=== PATIENT | female | born 1970 | race Caucasian/White ===

== ENCOUNTER 2019-07-17 09:50 | Outpatient (RCR) | payer BC, SELFPAY ==
[2019-05-11 17:52] LABS: Hematocrit 26.1 % (35.0-49.0); Hemoglobin 8.4 g/dL (12.0-15.0); Mean Corpuscular HGB Conc 32.2 g/dL (32.0-36.0); Mean Corpuscular Hemoglobin 36.7 pg (27.0-31.0); Mean Platelet Volume 9.5 fl (9.2-11.8); Platelet Count Result 108 K/mm3 (150-420); Red Blood Count 2.29 M/mm3 (4.20-5.40); Red Cell Distribution Width 15.9 % (11.6-14.4); White Blood Count 8.3 K/mm3 (4.8-10.8)
[2019-05-11 19:17] LABS: Band Neutrophils Percent 6 % (0-6); Lymphocytes Absolute Manual 2.24 K/mm3 (1.1-4.5); Lymphocytes Percent Manual 27 % (18-44); Monocytes Absolute Manual 0.74 K/mm3 (0.1-0.90); Monocytes Percent Manual 9 % (3-9); Neutrophils Absolute Manual 5.06 K/mm3 (1.7-7.2); Neutrophils Percent Manual 55 % (46-73)
[2019-05-11 19:18] LABS: Eosinophils Absolute Manual 0.08 K/mm3 (0.02-0.5); Eosinophils Percent Manual 1 % (1-6); Metamyelocytes Percent 2 %
[2019-05-11 19:26] LABS: Platelet Estimate Adequate (Adequate)
[2019-05-15 10:29] LABS: Basophils Absolute Auto 0.05 K/mm3 (0.00-0.10); Basophils Percent Auto 1.2 % (0.0-1.0); Eosinophils Absolute Auto 0.09 K/mm3 (0.02-0.50); Eosinophils Percent Auto 2.2 % (1.0-6.0); Hematocrit 26.8 % (35.0-49.0); Hemoglobin 8.8 g/dL (12.0-15.0); Immature Granulocyte Percent A 2.4 % (0.0-0.0); Lymphocytes Absolute Auto 2.05 K/mm3 (1.10-4.50); Lymphocytes Percent Auto 49.4 % (18.0-42.0); Mean Corpuscular HGB Conc 32.8 g/dL (32.0-36.0); Mean Corpuscular Volume 112.6 fL (78.0-102.0); Mean Platelet Volume 9.4 fl (9.2-11.8); Monocytes Absolute Auto 0.61 K/mm3 (0.10-0.90); Monocytes Percent Auto 14.7 % (2.0-11.0); Neutrophils Absolute Auto 1.3 K/mm3 (1.7-7.2); Neutrophils Percent Auto 30.1 % (50.0-70.0); Platelet Count Result 127 K/mm3 (150-420); Red Blood Count 2.38 M/mm3 (4.20-5.40); Red Cell Distribution Width 15.9 % (11.6-14.4); White Blood Count 4.2 K/mm3 (4.8-10.8)
[2019-06-02 10:21] LABS: Hematocrit 28.9 % (35.0-49.0); Hemoglobin 9.5 g/dL (12.0-15.0); Mean Corpuscular HGB Conc 32.9 g/dL (32.0-36.0); Mean Corpuscular Hemoglobin 36.8 pg (27.0-31.0); Mean Platelet Volume 8.9 fl (9.2-11.8); Platelet Count Result 200 K/mm3 (150-420); Red Blood Count 2.58 M/mm3 (4.20-5.40); Red Cell Distribution Width 14.6 % (11.6-14.4)
[2019-06-02 11:00] LABS: White Blood Count 25.9 K/mm3 (4.8-10.8)
[2019-06-02 11:19] LABS: Band Neutrophils Percent 5 % (0-6); Lymphocytes Absolute Manual 2.33 K/mm3 (1.1-4.5); Lymphocytes Percent Manual 9 % (18-44); Monocytes Absolute Manual 0.77 K/mm3 (0.1-0.90); Monocytes Percent Manual 3 % (3-9); Neutrophils Absolute Manual 22.79 K/mm3 (1.7-7.2); Neutrophils Percent Manual 83 % (46-73); Total Cells Counted 100
[2019-06-02 11:20] LABS: Basophils Percent Manual 0 % (0-1); Eosinophils Percent Manual 0 % (1-6); Platelet Estimate Adequate (Adequate)
[2019-06-13 09:17] LABS: Basophils Absolute Auto 0.13 K/mm3 (0.00-0.10); Basophils Percent Auto 2.3 % (0.0-1.0); Eosinophils Absolute Auto 0.21 K/mm3 (0.02-0.50); Eosinophils Percent Auto 3.8 % (1.0-6.0); Hematocrit 29.9 % (35.0-49.0); Hemoglobin 9.6 g/dL (12.0-15.0); Immature Granulocyte Absolute 0.01 K/mm3 (0.00-0.00); Immature Granulocyte Percent A 0.2 % (0.0-0.0); Lymphocytes Absolute Auto 1.22 K/mm3 (1.10-4.50); Lymphocytes Percent Auto 21.8 % (18.0-42.0); Mean Corpuscular HGB Conc 32.1 g/dL (32.0-36.0); Mean Platelet Volume 9.5 fl (9.2-11.8); Monocytes Absolute Auto 0.51 K/mm3 (0.10-0.90); Monocytes Percent Auto 9.1 % (2.0-11.0); Neutrophils Absolute Auto 3.5 K/mm3 (1.7-7.2); Neutrophils Percent Auto 62.8 % (50.0-70.0); Platelet Count Result 336 K/mm3 (150-420); Red Blood Count 2.67 M/mm3 (4.20-5.40); Red Cell Distribution Width 13.5 % (11.6-14.4); White Blood Count 5.6 K/mm3 (4.8-10.8)
[2019-06-19 08:51] LABS: Basophils Absolute Auto 0.05 K/mm3 (0.00-0.10); Basophils Percent Auto 0.3 % (0.0-1.0); Eosinophils Absolute Auto 0.23 K/mm3 (0.02-0.50); Eosinophils Percent Auto 1.5 % (1.0-6.0); Hematocrit 30.6 % (35.0-49.0); Hemoglobin 9.7 g/dL (12.0-15.0); Immature Granulocyte Absolute 0.17 K/mm3 (0.00-0.00); Immature Granulocyte Percent A 1.1 % (0.0-0.0); Lymphocytes Absolute Auto 1.28 K/mm3 (1.10-4.50); Lymphocytes Percent Auto 8.6 % (18.0-42.0); Mean Corpuscular HGB Conc 31.7 g/dL (32.0-36.0); Mean Corpuscular Volume 110.5 fL (78.0-102.0); Monocytes Absolute Auto 0.56 K/mm3 (0.10-0.90); Monocytes Percent Auto 3.8 % (2.0-11.0); Neutrophils Absolute Auto 12.6 K/mm3 (1.7-7.2); Neutrophils Percent Auto 84.7 % (50.0-70.0); Platelet Count Result 197 K/mm3 (150-420); Red Blood Count 2.77 M/mm3 (4.20-5.40); Red Cell Distribution Width 13.2 % (11.6-14.4); White Blood Count 14.9 K/mm3 (4.8-10.8)
[2019-07-03 09:46] LABS: Basophils Absolute Auto 0.05 K/mm3 (0.00-0.10); Basophils Percent Auto 0.6 % (0.0-1.0); Eosinophils Absolute Auto 0.11 K/mm3 (0.02-0.50); Eosinophils Percent Auto 1.4 % (1.0-6.0); Hematocrit 32.9 % (35.0-49.0); Hemoglobin 10.6 g/dL (12.0-15.0); Immature Granulocyte Absolute 0.06 K/mm3 (0.00-0.00); Immature Granulocyte Percent A 0.7 % (0.0-0.0); Lymphocytes Absolute Auto 1.09 K/mm3 (1.10-4.50); Lymphocytes Percent Auto 13.6 % (18.0-42.0); Mean Corpuscular HGB Conc 32.2 g/dL (32.0-36.0); Mean Corpuscular Hemoglobin 34.6 pg (27.0-31.0); Mean Corpuscular Volume 107.5 fL (78.0-102.0); Mean Platelet Volume 9.8 fl (9.2-11.8); Monocytes Absolute Auto 0.64 K/mm3 (0.10-0.90); Neutrophils Absolute Auto 6.1 K/mm3 (1.7-7.2); Neutrophils Percent Auto 75.7 % (50.0-70.0); Platelet Count Result 163 K/mm3 (150-420); Red Blood Count 3.06 M/mm3 (4.20-5.40); Red Cell Distribution Width 13.4 % (11.6-14.4)
[2019-07-10 11:46] LABS: Hematocrit 31.3 % (35.0-49.0); Hemoglobin 10.1 g/dL (12.0-15.0); Mean Corpuscular HGB Conc 32.3 g/dL (32.0-36.0); Mean Corpuscular Hemoglobin 34.2 pg (27.0-31.0); Mean Corpuscular Volume 106.1 fL (78.0-102.0); Mean Platelet Volume 9.5 fl (9.2-11.8); Platelet Count Result 177 K/mm3 (150-420); Red Blood Count 2.95 M/mm3 (4.20-5.40); Red Cell Distribution Width 13.8 % (11.6-14.4)
[2019-07-10 13:42] LABS: White Blood Count 22.1 K/mm3 (4.8-10.8)
[2019-07-10 13:43] LABS: Band Neutrophils Percent 0 % (0-6); Basophils Percent Manual 0 % (0-1); Eosinophils Absolute Manual 0.66 K/mm3 (0.02-0.5); Eosinophils Percent Manual 3 % (1-6); Lymphocytes Percent Manual 5 % (18-44); Metamyelocytes Percent 2 %; Monocytes Percent Manual 5 % (3-9); Neutrophils Absolute Manual 18.78 K/mm3 (1.7-7.2); Neutrophils Percent Manual 85 % (46-73); Total Cells Counted 100
[2019-07-10 13:44] LABS: Platelet Estimate Adequate (Adequate)
[2019-07-17 10:00] LABS: Basophils Absolute Auto 0.03 K/mm3 (0.00-0.10); Basophils Percent Auto 0.7 % (0.0-1.0); Eosinophils Absolute Auto 0.08 K/mm3 (0.02-0.50); Eosinophils Percent Auto 1.7 % (1.0-6.0); Hematocrit 32.2 % (35.0-49.0); Hemoglobin 10.4 g/dL (12.0-15.0); Immature Granulocyte Absolute 0.02 K/mm3 (0.00-0.00); Immature Granulocyte Percent A 0.4 % (0.0-0.0); Lymphocytes Absolute Auto 1.25 K/mm3 (1.10-4.50); Lymphocytes Percent Auto 27.3 % (18.0-42.0); Mean Corpuscular HGB Conc 32.3 g/dL (32.0-36.0); Mean Corpuscular Hemoglobin 33.7 pg (27.0-31.0); Mean Corpuscular Volume 104.2 fL (78.0-102.0); Mean Platelet Volume 9.3 fl (9.2-11.8); Monocytes Absolute Auto 0.67 K/mm3 (0.10-0.90); Monocytes Percent Auto 14.6 % (2.0-11.0); Neutrophils Absolute Auto 2.5 K/mm3 (1.7-7.2); Neutrophils Percent Auto 55.3 % (50.0-70.0); Platelet Count Result 184 K/mm3 (150-420); Red Blood Count 3.09 M/mm3 (4.20-5.40); Red Cell Distribution Width 13.2 % (11.6-14.4); White Blood Count 4.6 K/mm3 (4.8-10.8)
== END 2019-08-09 23:59 | disposition home or self-care (01) ==
LOC: CHSLAB 09:50
PROVIDERS: Visit Provider Internal Medicine Hematology & Oncology
DX: D70.9 Neutropenia, unspecified (principal)
CPT/HCPCS: 36415; 85025

== ENCOUNTER 2019-09-01 07:45 | Inpatient (IN) | payer BC, SELFPAY ==
[2019-09-01] VITALS (12 sets, daily range): BP systolic 105–149; BP diastolic 65–99; PULSE 72–99; RESP 18–20; TEMP 36–36.6; O2SAT 96–100; BMI 17.9
--- NOTE | ~2019-09-01 | US_ITS ---
EXAMINATION: US venous doppler [facility] DATE: 09/04/2019 10:07 INDICATION: Epigastric abdominal pain. TECHNIQUE: Grayscale ultrasound images without and with compression and Doppler ultrasound images of the bilateral lower extremity veins were obtained. COMPARISON: None. FINDINGS: The visualized portions of right common femoral vein, profunda (deep) femoral vein, femoral vein, pop liteal vein, peroneal veins, posterior tibial veins, and greater saphenous vein outflow are patent. The visualized portions of left common femoral vein, profunda femoral vein, femoral vein, popliteal v ein, peroneal veins, posterior tibial veins, and greater saphenous vein outflow are patent. IMPRESSION: 1. No deep venous thrombosis. Reviewed, dictated and finalized at location A.
--- NOTE | ~2019-09-01 | CT_ITS ---
EXAMINATION: CTA chest PE abdomen pel DATE: 09/01/2019 09:49 INDICATION: Hypotension. Presyncope. Elevated d-dimer. TECHNIQUE: Computed tomography (CT) pulmonary angiogram of the chest was performed with 100 mL Omnipa que-350 intravenous contrast. Additional 3D reconstructions utilizing coronal maximum intensity proje ction (MIP) were performed. CT of the abdomen and pelvis was performed with intravenous contrast util izing the same contrast bolus following a short delay. Automated exposure control and iterative recon struction technique were employed. The dose-length product was 605.33 mGy-cm. COMPARISON: None FINDINGS: Chest: Excellent contrast opacification of the pulmonary arteries. There is mild streak artifact from dense contrast in the superior vena cava and right atrium. No significant respiratory motion artifact yield ing diagnostic quality study which demonstrates no pulmonary embolism. Mild to moderate emphysema. Th ere are a few subcentimeter nodular groundglass opacities in the bilateral upper and right middle and lower lobes which are most likely infectious/inflammatory in etiology. There are also several bilate ral scattered small solid pulmonary nodules, the largest measuring up to 5 mm in maximal diameter. Th ere is mucous plugging in the proximal at the posterior basilar segment of the left lower lobe. No pu lmonary edema or pleural effusion. Heart size is normal. Atherosclerotic coronary artery calcificatio ns. No pericardial effusion. Thoracic aorta is normal in caliber with no dissection. No pathologicall y enlarged thoracic lymphadenopathy. Mild thoracic spondylosis. Small sclerotic bone island with spic ulated margins at T10. Abdomen/pelvis: Peripherally calcified gallstones within the decompressed gallbladder. Small phrygian cap versus foca l adenomyomatosis at the tip of the fundus of the gallbladder. No intra or extrahepatic biliary ducta l dilation. Mild hepatomegaly with diffuse hepatic steatosis. Spleen, pancreas, bilateral adrenal gla nds and kidneys are normal. There is diffuse wall thickening throughout the colon with hyperemia of t he vasa recta and adjacent inflammatory stranding of the surrounding fat. Small amount of fluid, uncl ear whether retroperitoneal or ascites posterior superior to the splenic flexure of the colon. No pne umatosis, free intraperitoneal gas or abscess. Normal appendix. Small bowel is unremarkable with no o bstruction. Bilateral contrast opacified ureteral jets are visualized within the bladder. The uterus is not identified and has likely been surgically resected. There is calcified atherosclerosis without hemodynamically significant stenosis of the aorta and many of the other arteries. No pathologically enlarged abdominal or pelvic lymphadenopathy. Minimal lumbar dextrocurvature with minimal spondylosis . Mild osteoarthritis at the bilateral hip and sacroiliac joints. IMPRESSION: 1. Pancolitis which could be infectious, inflammatory or less likely ischemic in etiology. 2. No pulmonary embolism. 3. A few 5 mm smaller scattered pulmonary nodules likely sequela of old granulomatous disease along w ith coronal scattered subcentimeter ground glass nodules throughout both lungs which along with mucou s plugging in left lower lobar bronchi is likely infectious/inflammatory in etiology. 6-12 month foll ow-up low-dose noncontrast chest CT. 4. Moderate emphysema. 5. Cholelithiasis. 6. Mild hepatomegaly with diffuse hepatic steatosis. Reviewed, dictated and finalized at location A. MOTIVE CRANE OPERATOR HELPER IMPRESSION: 1. Pancolitis which could be infectious, inflammatory or less likely ischemic i n etiology. 2. No pulmonary embolism. 3. A few 5 mm smaller scattered pulmonary nodules likely sequela of old granulo matous disease along with coronal scatt
--- NOTE | ~2019-09-01 | CT_ITS ---
EXAMINATION: CT brain wo con DATE: 09/01/2019 09:48 INDICATION: Near syncope. TECHNIQUE: Computed tomography (CT) of the head was performed without intravenous contrast. The mA wa s adjusted according to patient size. Iterative reconstruction technique was employed. The dose-lengt h product was 605.33 mGy-cm. COMPARISON: None FINDINGS: There is no intracranial hemorrhage, acute infarction, or abnormal intracranial mass lesion . The ventricles are normal in size. There is mild mucosal thickening in the ethmoid sinuses. The mas toid air cells are normal. IMPRESSION: 1. Normal brain. Reviewed, dictated and finalized at location A. PROJECT MANAGER IMPRESSION: 1. Normal brain.
--- NOTE | ~2019-09-01 | US_ITS ---
US abdomen complete EXAMINATION: US Abdomen Complete INDICATION: Pancreatitis. History of renal stones. PROCEDURE: Realtime High Resolution abdomen ultrasound. COMPARISON: Ultrasound dated 11/01/2018 FINDINGS: Gallbladder is contracted with stones. Common bile duct measures 4 mm. Liver echotexture within normal limits without focal mass. Pancreas within normal limits. Pancreati c tail is obscured by bowel gas. Spleen is unremarkeable. Renal echotexture is within normal limits bilaterally without hydronephrosis, contour deforming mass or renal stone. Right kidney measures 9.8 cm. Left kidney measures 10 cm. Visualized aspects of the aorta and IVC are within normal limits. Portal vein is patent. No sonograph ic Cervantes's sign indicated by the technologist. IMPRESSION: 1: Cholelithiasis. Reviewed, dictated and finalized at location A. IMPRESSION: 1: Cholelithiasis.
--- NOTE | 2019-09-01 08:04 | ECG_ITS ---
Measurements Intervals [place] Rate: 72 P: 77 MN: 135 QRS: 91 QRSD: 105 T: 81 QT: 421 QTc: 462 Interpretive Statements SINUS RHYTHM RIGHT AXIS DEVIATION VOLTAGE CRITERIA FOR LVH ST ELEVATION IN ANTEROLATERAL LEADS- PROBABLY EARLY REPOLARIZATION MINIMAL Q WAVES- INFERIOR LEADS BASELINE ARTIFACT- I, III, AVL BORDERLINE ECG Electronically Signed On 09-01-2019 8:40:21 PHYSICAL MEDICINE SPECIALIST by Wilfredo Covington D.O.
--- NOTE | 2019-09-01 08:11 | ED.WEAKNESS ---
HPI - Weakness General Chief complaint: Weakness Stated complaint: FEELS LIKE GOING TO PASS OUT Source: patient Mode of arrival: ambulatory Limitations: no limitations History of Present Illness HPI Narrative: This is a 48-year-old female with a history of chronic alcoholism with some new symptoms of feeling like she is going to pass out, typically drinks about 3 to 4 shots every day with a history of tobacco abuse, patient has some mild confusion and did have some ataxia when she walked in, currently there is no chest pain no shortness of breath, does have some mild abdominal pain elicited epigastric area does have some bruising that is located on her back. Patient states that the bruising is from multiple falls. No nausea vomiting no fever chills no dysuria no flank pain or tenderness does have a history of pancreatitis, alcohol abuse and grade 1 diastolic dysfunction along with chronic anemia. Complaint: generalized weakness, numbness, tingling and lack of energy Onset (ago): day(s) Duration: constant Location: generalized Migration: none Severity: moderate Quality: tingling and numbness Relieving factors: none Exacerbating factors: movement Associated symptoms: easy bruising Related Data Home Medications Medication Instructions Recorded Confirmed ergocalciferol (vitamin D2) 1,250 mcg PO MONTHLY 09/01/19 09/01/19 folic acid 1 mg PO DAILY 09/01/19 09/01/19 potassium chloride [Klor-Con 10] 10 meq PO DAILY 09/01/19 09/01/19 thiamine mononitrate (vit B1) 100 mg PO DAILY 09/01/19 09/01/19 Allergies Allergy/AdvReac Type Severity Reaction Status Date / Time citric acid Allergy Unknown throat Verified 03/20/19 14:41 edema SEASONAL Allergy Unknown ITCHING Uncoded 01/02/19 16:05 Review of Systems Review of Systems: All systems reviewed & are unremarkable except as noted in HPI and below PMFSH Past Medical History Medical History Chronic alcoholism Chronic anemia Chronic pancreatitis Tobacco abuse Family History Family History Mother Diabetes mellitus Family history of arthritis Family history of congestive heart failure Father Family history of Alzheimer's disease Other Family history of malignant neoplasm Social History Social History Smoking status: Current every day smoker Alcohol intake: current Exam Const: General: no acute distress Orientation/consciousness: patient oriented x3 and confusion HENMT: Head: normal to inspection Eyes: Pupils: Equal, round and reactive pupils present Neck: Neck: normal visual inspection and no lymphadenopathy Chest: Chest palpation & inspection: normal inspection of the chest and abnormal inspection of the chest Resp: Effort & Inspection: normal respiratory effort Auscultation: clear to auscultation bilaterally Cardio: Rate: regular rate Rhythm: regular rhythm GI: GI Palp: Yes Soft to palpation and Yes Tenderness to palpation present (GI) : General: Yes no CVA tenderness Back/Spine/Pelvis: Back: no CVA tenderness Skin: Wounds: wounds noted ( bruising noted on her mid and lower back) Neuro: General: patient oriented x3, moves all extremities, no meningeal signs and no focal motor deficits Extrem: General: normal to inspection and no pedal edema Psych: Appearance: disheveled Thought content: Yes Normal thought content present Course Vital Signs Vital signs: Vital Signs Temperature 36.6 C 09/01/19 07:45 Pulse Rate 85 09/01/19 07:45 Respiratory Rate 09/01/19 07:45 Blood Pressure 141/80 H 09/01/19 07:45 Pulse Oximetry 100 09/01/19 07:45 Temperature 36.6 C 09/01/19 07:45 Pulse Rate 83 09/01/19 10:05 Respiratory Rate 20 09/01/19 10:05 Blood Pressure 149/99 H 09/01/19 10:05 Pulse Oximetry 100 09/01/19 10:05 MDM - Weakness La
[2019-09-01 08:18] LABS: Glucose Point of Care < 33 (65-105)
[2019-09-01] MEDS: SODIUM CHLORIDE 0.9% IV 1,000 ML 999 ML IV CONT (08:20)
[2019-09-01 08:23] LABS: Immature Platelet Fraction Pct 0.9 % (1.0-7.0); Mean Corpuscular HGB Conc 32.1 g/dL (32.0-36.0); Mean Corpuscular Hemoglobin 33.3 pg (27.0-31.0); Mean Corpuscular Volume 103.7 fL (78.0-102.0); Mean Platelet Volume 8.8 fl (9.2-11.8); Platelet Count Result 105 K/mm3 (150-420); Red Cell Distribution Width 15.3 % (11.6-14.4)
[2019-09-01] MEDS: DEXTROSE 50% 25 GM/50 ML SYRINGE IV PUSH (08:31)
[2019-09-01 08:36] LABS: Partial Thromboplastin Time 27.8 SEC (22.3-31.6); Prothrombin Time 10.3 Seconds (9.64-11.0)
[2019-09-01 08:37] LABS: BNP 45.6 pg/mL (0-100)
[2019-09-01 08:40] LABS: D Dimer 1.72 mg/L (0.19-0.50)
[2019-09-01 08:40] LABS: Alanine Aminotransferase 47 U/L (14-59); Alkaline Phosphatase 170 U/L (46-116); Anion Gap 23.3 mmol/L (7-16); Aspartate Amino Transferase 81 U/L (15-37); Bilirubin,Total 0.5 mg/dL (0.00-1.00); Blood Urea Nitrogen 11 mg/dL (7-18); Calcium 8.8 mg/dL (8.5-10.1); Carbon Dioxide 14 mmol/L (21-32); Chloride 101 mmol/L (98-108); Estimated CRCL calculation 64 ml/min; Estimated Glomerular Filt Rate > 60; Glucose 19 mg/dL (70-99); Magnesium 1.7 mg/dL (1.8-2.4); Osmolality Calculated 275 mOsm/kg (285-295); Potassium 3.3 mmol/L (3.5-5.1); Sodium 135 mmol/L (136-145); Total Protein 6.8 g/dL (6.4-8.2); Troponin I < 0.02 ng/mL (0.00-0.056)
[2019-09-01 08:41] LABS: Ethanol 59 mg/dL (0-6)
[2019-09-01 08:41] LABS: Lipase 1430 U/L (73-393)
[2019-09-01 08:44] LABS: Lactic Acid Reflex 3.2 mmol/L (0.4-2.0)
[2019-09-01 08:48] LABS: Band Neutrophils Percent 4 % (0-6); Basophils Absolute Manual 0.07 K/mm3 (0-0.1); Basophils Percent Manual 1 % (0-1); Eosinophils Absolute Manual 0.07 K/mm3 (0.02-0.5); Eosinophils Percent Manual 1 % (1-6); Lymphocytes Absolute Manual 0.35 K/mm3 (1.1-4.5); Lymphocytes Percent Manual 5 % (18-44); Metamyelocytes Percent 2 %; Monocytes Absolute Manual 0.28 K/mm3 (0.1-0.90); Monocytes Percent Manual 4 % (3-9); Myelocytes Percent 2 %; Neutrophils Absolute Manual 5.95 K/mm3 (1.7-7.2); Neutrophils Percent Manual 81 % (46-73); Platelet Estimate Decreased (Adequate); Total Cells Counted 100
[2019-09-01 10:11] LABS: Appearance Urine Clear (Clear); Bilirubin Urine Negative (Negative); Color Urine Yellow (Yellow); Glucose Urine UA Negative (Negative); Ketones Urine 1+ (Negative); Leukocyte Esterase Ur Negative LEU/UL (Negative); Nitrate Urine Negative (Negative); Protein Urine 1+ (Negative); Urobilinogen Urine 0.2 mg/dL (0.2-1.0); pH Urine 6.5 (5.0-8.0)
[2019-09-01 10:16] LABS: Glucose Point of Care 121 (65-105)
[2019-09-01 10:18] LABS: Add Urine Microscopic? YES; Blood Urine Trace-Intact (Negative); RBC Urine 0-2 /hpf (0-2); Squamous Epithelial Cell Urine Moderate /hpf (Few); WBC Urine 0-3 /hpf (0-3)
--- NOTE | 2019-09-01 10:18 | PC.NURSE ---
POC cap glucose recheck at 121. Pt. resting and watching TV, stable at this time. Call placed to [facility] for admit.
[2019-09-01 10:19] LABS: Bacteria Urine 1+ /hpf; Mucus Urine Few /lpf
[2019-09-01 11:19] LABS: Reflex Lactic Acid Yes or No Add Lactic
--- NOTE | 2019-09-01 11:30 | PC.NURSE ---
Here for diagnosis of pancreatitis, here for dehydration, low blood sugar, hx of etoh use daily, dizzyness at home, no n/v, no diarrhea, presented with banana bag from er, denies pain, oriented to room
--- NOTE | 2019-09-01 11:44 | PC.NURSE ---
second lactic acid drawn
[2019-09-01 12:05] LABS: Glucose Point of Care 112 (65-105)
[2019-09-01 12:20] LABS: Magnesium 1.6 mg/dL (1.8-2.4)
--- NOTE | 2019-09-01 12:43 | PM.IMHP ---
H&P: HPI History of Present Illness Chief complaint: FEELS LIKE GOING TO PASS OUT Narrative: Dinah Batres is a 48 year old female admitted with generalized weakness, numbness, tingling, lack of energy, near syncope, dizziness and lightheadedness. Patient has some mild confusion and did have some ataxia when she walked in to the ED. Currently had no chest pain no shortness of breath, does have some mild abdominal pain elicited epigastric area, does have some bruising that is located on her back. Patient states that the bruising is from multiple falls. No nausea vomiting no fever chills no dysuria no flank pain or tenderness does have a history of pancreatitis, alcohol abuse and grade 1 diastolic dysfunction along with chronic anemia. Dinah has a history of chronic alcoholism with some new symptoms of feeling like she is going to pass out, typically drinks about 3 to 4 shots every day. She has a history of Chronic alcoholism, Chronic anemia, Chronic pancreatitis, Tobacco abuse, and Chronic malnutrition. She lives with her . He works from around 3-11pm daily. He also drinks alcohol, but according to her report, he is able to control his alcohol better. In the ED: Her lactic acid was elevated at 3.2, her lipase was 1430, her K = 3.3, Mag = 1.7, ethyl alcohol elevated, and LFTs elevated. She was started on IVFs, IV folic acid, IV Mag, IV thiamine, tested for alcohol. Her Ddimer was elevated at 1.[address] showed: no intracranial hemorrhage, acute infarction, or abnormal intracranial mass lesion. The ventricles are normal in size. There is mild mucosal thickening in the ethmoid sinuses. The mastoid air cells are normal. 1. Normal brain. Her CTA chest PE abdomen pelvis showed: No PE. Mild to moderate emphysema. There are a few subcentimeter nodular groundglass opacities in the bilateral upper and right middle and lower lobes which are most likely infectious/inflammatory in etiology. There are also several bilateral scattered small solid pulmonary nodules, the largest measuring up to 5 mm in maximal diameter. There is mucous plugging in the proximal at the posterior basilar segment of the left lower lobe. Small sclerotic bone island with spiculated margins at T10. Peripherally calcified gallstones within the decompressed gallbladder. Small phrygian cap versus focal adenomyomatosis at the tip of the fundus of the gallbladder. No intra or extrahepatic biliary ductal dilation. Mild hepatomegaly with diffuse hepatic steatosis. There is diffuse wall thickening throughout the colon with hyperemia of the vasa recta and adjacent inflammatory stranding of the surrounding fat. Small amount of fluid, unclear whether retroperitoneal or ascites posterior superior to the splenic flexure of the colon. IMPRESSION: 1. Pancolitis which could be infectious, inflammatory or less likely ischemic in etiology. 2. No pulmonary embolism. 3. A few 5 mm smaller scattered pulmonary nodules likely sequela of old granulomatous disease along with coronal scattered subcentimeter ground glass nodules throughout both lungs which along with mucous plugging in left lower lobar bronchi is likely infectious/inflammatory in etiology. 6-12 month follow-up low-dose noncontrast chest CT. 4. Moderate emphysema. 5. Cholelithiasis. 6. Mild hepatomegaly with diffuse hepatic steatosis. Admitted with Diagnoses: Chronic Alcoholism, Hypoglycemia, Acute dehydration; Acute alcohol induced pancreatitis. When I met with her and examined Dinah, she stated that this was her own fault, she stated that she gets too drunk, passes out, forgets to eat, doesn't eat right, and admits that they have food in their refrigerator. She denies any chest pain or difficulty breathing, does complain about her lower legs from her knees down to her toes have been weak and numb feeling with some tingling. She walks with a stagger at times a jolted type stance. Ordered PT to eval and treat prior to discharge. Will continue her home medicati
[2019-09-01] MEDS: MAGNESIUM SULF 2 GM/WATER 50ML 2 GM/50 ML BAG IVPB (13:39)
[2019-09-01] MEDS: KCL 20 MEQ/SW 100 ML 100 ML 50 MEQ IVPB (14:55)
[2019-09-01 15:01] LABS: Glucose Point of Care 121 (65-105)
[2019-09-01 16:48] LABS: Glucose Point of Care 103 (65-105)
[2019-09-01 17:29] LABS: Magnesium 2.3 mg/dL (1.8-2.4)
[2019-09-01 17:30] LABS: Anion Gap 12.8 mmol/L (7-16); Blood Urea Nitrogen 14 mg/dL (7-18); Calcium 7.8 mg/dL (8.5-10.1); Carbon Dioxide 21 mmol/L (21-32); Chloride 101 mmol/L (98-108); Estimated CRCL calculation 57 ml/min; Estimated Glomerular Filt Rate > 60; Glucose 100 mg/dL (70-99); Lipase 1061 U/L (73-393); Osmolality Calculated 272 mOsm/kg (285-295); Potassium 3.8 mmol/L (3.5-5.1); Sodium 131 mmol/L (136-145)
--- NOTE | 2019-09-01 17:39 | PC.NURSE ---
Unable to collect urine, or stool for sampling due to mixing, fluids infusing, telemetry SR90's
[2019-09-01] MEDS: PANTOPRAZOLE 40 MG TABLET PO (18:09)
--- NOTE | 2019-09-01 18:12 | PC.NURSE ---
advised of need for urine and stool samples, voices understanding
[2019-09-01] MEDS: CIPROFLOXACIN 400 MG/D5W 200ML 200 ML 200 MG IVPB (19:55)
[2019-09-01] MEDS: FAMOTIDINE 20 MG TABLET PO (21:10)
[2019-09-01] MEDS: metroNIDAZOLE 250 MG TABLET 500 MG PO (21:10)
--- NOTE | 2019-09-01 21:15 | PC.NURSE ---
pt called and had accidentally pulled on iv site, site now leaking, iv antibiotic stopped, pt does not want to be stuck again for an iv, wire charger notified, she called ERP
[2019-09-01 21:25] LABS: Glucose Point of Care 145 (65-105)
[2019-09-01 23:56] LABS: Glucose Point of Care 95 (65-105)
[2019-09-02] VITALS (14 sets, daily range): BP systolic 92–127; BP diastolic 60–80; PULSE 67–115; RESP 12–20; TEMP 36.1–37.8; O2SAT 97–98
--- NOTE | 2019-09-02 00:02 | PC.NURSE ---
Full liquid HS snack given.
[2019-09-02 01:22] LABS: Occult Blood Negative (Negative)
--- NOTE | 2019-09-02 04:09 | PC.NURSE ---
Telemetry continues SR
[2019-09-02 04:59] LABS: Glucose Point of Care 84 (65-105)
--- NOTE | 2019-09-02 05:15 | PC.NURSE ---
Dr Welch called with pt glucose level of 84, orders given to give pt juice
--- NOTE | 2019-09-02 05:21 | PC.NURSE ---
Juice given per order.
[2019-09-02] MEDS: metroNIDAZOLE 250 MG TABLET 500 MG PO (05:26)
[2019-09-02] MEDS: IPRATROPIUM 0.5 MG/ALBUTEROL SULFATE 2.5 MG AMPUL.NEB 3 ML INHALATION ×2 (06:14→12:38)
--- NOTE | 2019-09-02 06:29 | PC.NURSE ---
Sm mushy brown continent stool.
[2019-09-02 07:21] LABS: Hematocrit 23.6 % (35.0-49.0); Hemoglobin 7.9 g/dL (12.0-15.0); Immature Platelet Fraction Pct 1.2 % (1.0-7.0); Mean Corpuscular HGB Conc 33.5 g/dL (32.0-36.0); Mean Corpuscular Hemoglobin 33.2 pg (27.0-31.0); Mean Corpuscular Volume 99.2 fL (78.0-102.0); Platelet Count Result 83 K/mm3 (150-420); Red Blood Count 2.38 M/mm3 (4.20-5.40); Red Cell Distribution Width 15.2 % (11.6-14.4); White Blood Count 5.1 K/mm3 (4.8-10.8)
[2019-09-02 07:33] LABS: BNP 70.5 pg/mL (0-100); INR 1.1; Prothrombin Time 11.1 Seconds (9.64-11.0)
[2019-09-02 07:39] LABS: Lactic Acid Reflex 1.6 mmol/L (0.4-2.0)
[2019-09-02 07:45] LABS: Alanine Aminotransferase 35 U/L (14-59); Albumin Level 2.6 g/dL (3.4-5.0); Alkaline Phosphatase 139 U/L (46-116); Anion Gap 14.3 mmol/L (7-16); Aspartate Amino Transferase 36 U/L (15-37); Bilirubin,Total 0.6 mg/dL (0.00-1.00); Blood Urea Nitrogen 8 mg/dL (7-18); Calcium 8.4 mg/dL (8.5-10.1); Carbon Dioxide 22 mmol/L (21-32); Chloride 103 mmol/L (98-108); Estimated CRCL calculation 60 ml/min; Estimated Glomerular Filt Rate > 60; Glucose 141 mg/dL (70-99); Osmolality Calculated 282 mOsm/kg (285-295); Potassium 3.3 mmol/L (3.5-5.1); Sodium 136 mmol/L (136-145); Total Protein 5.9 g/dL (6.4-8.2)
[2019-09-02 07:48] LABS: Lipase 1967 U/L (73-393)
[2019-09-02 07:49] LABS: Ethanol < 3 mg/dL (0-6)
[2019-09-02 07:52] LABS: Glucose Point of Care 118 (65-105)
[2019-09-02 08:03] LABS: Band Neutrophils Percent 11 % (0-6); Neutrophils Absolute Manual 3.62 K/mm3 (1.7-7.2); Neutrophils Percent Manual 60 % (46-73); Total Cells Counted 100
[2019-09-02 08:04] LABS: Basophils Percent Manual 0 % (0-1); Eosinophils Percent Manual 0 % (1-6); Lymphocytes Absolute Manual 0.51 K/mm3 (1.1-4.5); Lymphocytes Percent Manual 10 % (18-44); Metamyelocytes Percent 5 %; Monocytes Absolute Manual 0.45 K/mm3 (0.1-0.90); Monocytes Percent Manual 9 % (3-9); Myelocytes Percent 5 %; Platelet Estimate Decreased (Adequate)
[2019-09-02] MEDS: CIPROFLOXACIN 500 MG TAB PO (09:31)
[2019-09-02] MEDS: THIAMINE HCL 100 MG TABLET PO (09:32)
[2019-09-02] MEDS: FAMOTIDINE 20 MG TABLET PO ×2 (09:32→20:38)
[2019-09-02] MEDS: FOLIC ACID 1 MG TABLET PO (09:32)
[2019-09-02] MEDS: POTASSIUM CHLORIDE 10 MEQ TABLET PO (09:32)
[2019-09-02] MEDS: PANTOPRAZOLE 40 MG TABLET PO (09:32)
[2019-09-02] MEDS: KCL 20 MEQ/SW 100 ML 100 ML 50 MEQ IVPB ×2 (10:50→12:54)
--- NOTE | 2019-09-02 11:04 | PC.NURSE ---
Lactated Ringers started at 200ml/hr per Adry Corbin NP
[2019-09-02 12:08] LABS: Glucose Point of Care 94 (65-105)
[2019-09-02] MEDS: LACTATED RINGERS 500 ML 200 ML IV CONT (12:15)
[2019-09-02] MEDS: LACTATED RINGERS 1,000 ML 200 ML (12:15)
--- NOTE | 2019-09-02 15:43 | PM.IMPN ---
Progress Note: A&P Assessment and Plan (1) Acute pancreatitis: Onset Date: ~09/01/19 Qualifiers: Acute pancreatitis complication: unspecified Pancreatitis type: alcohol induced Qualified Code(s): K85.20 - Alcohol induced acute pancreatitis without necrosis or infection Code(s): K85.90 - Acute pancreatitis without necrosis or infection, unspecified Status: Acute Assessment and Plan: Admitted with some mild abdominal pain elicited epigastric area, No nausea vomiting no fever no chills no dysuria no flank pain or tenderness history of pancreatitis, alcohol abuse and grade 1 diastolic dysfunction along with chronic anemia. Chronic malnutrition. In the ED: Her lactic acid was elevated at 3.2, her lipase was 1430, her K = 3.3, Mag = 1.7, ethyl alcohol elevated, and LFTs elevated. started on IVFs, IV folic acid, IV Mag, IV thiamine, tested for alcohol. Her CTA chest PE abdomen pelvis showed: Peripherally calcified gallstones within the decompressed gallbladder. Small phrygian cap versus focal adenomyomatosis at the tip of the fundus of the gallbladder. No intra or extrahepatic biliary ductal dilation. Mild hepatomegaly with diffuse hepatic steatosis. There is diffuse wall thickening throughout the colon with hyperemia of the vasa recta and adjacent inflammatory stranding of the surrounding fat. Small amount of fluid, unclear whether retroperitoneal or ascites posterior superior to the splenic flexure of the colon. IMPRESSION: 1. Pancolitis which could be infectious, inflammatory or less likely ischemic in etiology. 2. No pulmonary embolism. 3. A few 5 mm smaller scattered pulmonary nodules likely sequela of old granulomatous disease along with coronal scattered subcentimeter ground glass nodules throughout both lungs which along with mucous plugging in left lower lobar bronchi is likely infectious/inflammatory in etiology. 6-12 month follow-up low-dose noncontrast chest CT. 4. Moderate emphysema. 5. Cholelithiasis. 6. Mild hepatomegaly with diffuse hepatic steatosis. Will order protonix, Pepcid, IV Cipro and Flagyl. Will repeat Lipase, Mag, BMP later this afternon; as she may need more potassium, more magnesium if her lipase has improved, then she could be advanced to Regular Diet as she has had no Nausea or vomitting, is so malnourished, and is recovering from hypoglycemia so she can use the oral nutrition. (2) Alcoholism, chronic: Onset Date: Unknown Code(s): F10.20 - Alcohol dependence, uncomplicated Status: Acute Assessment and Plan: She is not ready to quit and doesn't sound like her home environment would support her quitting alcohol consumption at this time. Ethylanol level was 59, significantly elevated at admission, no WNL. She is not currently having any s/s of withdrawal. Ativan PRN ordered. Fall and Aspiration Precautions ordered. (3) Hypoglycemia: Onset Date: ~09/01/19 Code(s): E16.2 - Hypoglycemia, unspecified Status: Acute Assessment and Plan: A product of malnourishment IV Dextrose ordered PRN for glucose levels less than 90 ACHS/midnight/4am glucose checks. May switch to regular diet ONLY if lipase improves to near normal levels. She does not use any medications oral or SQ to treat diabetes. She admitted that she drinks alcohol, doesn't eat, passes out, and skips meals for days. Discussed how she can set her phone alarm to wake her up every 3 hours for a snack or a meal. Discussed how she needs to have easy food handy to eat, such as instant outmeal or milk - that would provide her with longer lasting carbs. Will continue to monitor her glucose (4) Acute dehydration: Onset Date: ~09/01/19 Code(s): E86.0 - Dehydration Status: Acute (5) Pancolitis: Code(s): K51.00 - Ulcerative (chronic) pancolitis without complications Status: Acute Assessment and Plan: Reports no N/V, only small bouts of diarrhea (loo
[2019-09-02 16:45] LABS: Glucose Point of Care 102 (65-105)
[2019-09-02] MEDS: metroNIDAZOLE 500 MG/ISO 100ML 500 MG/100 ML BAG 100 MG IVPB (17:00)
[2019-09-02] MEDS: LACTATED RINGERS 1,000 ML 200 ML IV CONT ×2 (17:01→23:09)
[2019-09-02 20:16] LABS: Anion Gap 10.8 mmol/L (7-16); Blood Urea Nitrogen 5 mg/dL (7-18); Calcium 8.5 mg/dL (8.5-10.1); Carbon Dioxide 23 mmol/L (21-32); Chloride 107 mmol/L (98-108); Estimated CRCL calculation 61 ml/min; Estimated Glomerular Filt Rate > 60; Glucose 102 mg/dL (70-99); Osmolality Calculated 281 mOsm/kg (285-295); Potassium 3.8 mmol/L (3.5-5.1); Sodium 137 mmol/L (136-145)
[2019-09-02 20:27] LABS: Magnesium 1.8 mg/dL (1.8-2.4)
[2019-09-02] MEDS: CIPROFLOXACIN 400 MG/D5W 200ML 200 ML 200 MG IVPB (20:38)
[2019-09-02 20:49] LABS: Glucose Point of Care 103 (65-105)
[2019-09-02 20:49] LABS: Lipase 1218 U/L (73-393)
[2019-09-03] VITALS (13 sets, daily range): BP systolic 103–128; BP diastolic 63–87; PULSE 84–111; RESP 12–24; TEMP 36.6–37.4; O2SAT 96–100
[2019-09-03] MEDS: metroNIDAZOLE 500 MG/ISO 100ML 500 MG/100 ML BAG 100 MG IVPB ×3 (01:05→17:34)
[2019-09-03] MEDS: LACTATED RINGERS 1,000 ML 200 ML IV CONT (06:15)
[2019-09-03 06:32] LABS: Hematocrit 22.3 % (35.0-49.0); Hemoglobin 7.1 g/dL (12.0-15.0); Immature Platelet Fraction Pct 1.9 % (1.0-7.0); Mean Corpuscular HGB Conc 31.8 g/dL (32.0-36.0); Mean Corpuscular Hemoglobin 32.3 pg (27.0-31.0); Mean Corpuscular Volume 101.4 fL (78.0-102.0); Mean Platelet Volume 10.1 fl (9.2-11.8); Platelet Count Result 64 K/mm3 (150-420); Red Cell Distribution Width 15.5 % (11.6-14.4); White Blood Count 3.2 K/mm3 (4.8-10.8)
[2019-09-03] MEDS: IPRATROPIUM 0.5 MG/ALBUTEROL SULFATE 2.5 MG AMPUL.NEB 3 ML INHALATION ×2 (06:33→12:57)
[2019-09-03 06:49] LABS: Alanine Aminotransferase 30 U/L (14-59); Albumin Level 2.5 g/dL (3.4-5.0); Alkaline Phosphatase 121 U/L (46-116); Anion Gap 9.8 mmol/L (7-16); Aspartate Amino Transferase 29 U/L (15-37); Bilirubin,Total 0.3 mg/dL (0.00-1.00); Blood Urea Nitrogen 4 mg/dL (7-18); Calcium 8.3 mg/dL (8.5-10.1); Carbon Dioxide 25 mmol/L (21-32); Chloride 109 mmol/L (98-108); Estimated CRCL calculation 67 ml/min; Estimated Glomerular Filt Rate > 60; Glucose 97 mg/dL (70-99); Magnesium 1.8 mg/dL (1.8-2.4); Osmolality Calculated 286 mOsm/kg (285-295); Potassium 3.8 mmol/L (3.5-5.1); Sodium 140 mmol/L (136-145); Total Protein 5.6 g/dL (6.4-8.2)
[2019-09-03 07:00] LABS: Lipase 1592 U/L (73-393)
[2019-09-03 08:58] LABS: Iron 35 ug/dL (50-170); Percent Iron Saturation 23 % (12-57)
[2019-09-03] MEDS: CIPROFLOXACIN 400 MG/D5W 200ML 200 ML 200 MG IVPB ×2 (09:33→20:54)
--- NOTE | 2019-09-03 09:51 | ECG_ITS ---
Measurements Intervals [place] Rate: 91 P: 79 OK: 115 QRS: 85 QRSD: 86 T: 74 QT: 312 QTc: 386 Interpretive Statements SINUS RHYTHM WITH SHORT OK INTERVAL BORDERLINE ECG Electronically Signed On 09-03-2019 15:48:34 CDT by Wilfredo Covington D.O.
[2019-09-03 11:11] LABS: Ferritin 282 ng/mL (8-252)
[2019-09-03 11:59] LABS: Glucose Point of Care 88 (65-105)
--- NOTE | 2019-09-03 12:14 | PCPTNOTE ---
09/03/19 Patient refused treatment stating that she has been walking up and down hallway 16 times this am and does not need help getting in/out of chair or bed.
[2019-09-03] MEDS: PANTOPRAZOLE 40 MG TABLET PO (12:30)
[2019-09-03] MEDS: POTASSIUM CHLORIDE 10 MEQ TABLET PO (12:30)
[2019-09-03] MEDS: FOLIC ACID 1 MG TABLET PO (12:30)
[2019-09-03] MEDS: THIAMINE HCL 100 MG TABLET PO (12:30)
[2019-09-03] MEDS: FAMOTIDINE 20 MG TABLET PO (12:30)
[2019-09-03] MEDS: ACETAMINOPHEN 500 MG TABLET 1000 MG (14:45)
--- NOTE | 2019-09-03 14:54 | PM.IMPN ---
Progress Note: A&P Assessment and Plan (1) Acute pancreatitis: Onset Date: ~09/01/19 Qualifiers: Acute pancreatitis complication: unspecified Pancreatitis type: alcohol induced Qualified Code(s): K85.20 - Alcohol induced acute pancreatitis without necrosis or infection Code(s): K85.90 - Acute pancreatitis without necrosis or infection, unspecified Status: Acute Assessment and Plan: history of pancreatitis, alcohol abuse and grade 1 diastolic dysfunction along with chronic anemia. Chronic malnutrition. Reports no N/V, only small bouts of diarrhea (loose continent stools of small volumes) for the last 2-3 days lactic acid was elevated at 3.2, but resolved to 1. 6. Day 1 hospitalization - no N/V/Abd pain - Allowed patient to eat: lipase was 1430, then 1061 last night, then 1967 Day 2 hospitalization - no N/V/Abd pain - Strict NPO with IVFs at 200 ml/hr : lipase was 1218, then 1592. Day 3 hospitalization - no N/V/Abd pain - Allowed patient to eat Lunch and Supper today, at 6pm Change to strict NPO with 200ml/hr IVFs, recheck Lipase at 8pm and 8am. ethyl alcohol now NORMAL, and LFTs IMPROVING K and Mag monitored and replenished as needed. Ordered Abdominal US for tomorrow. In the ED: Her lactic acid was elevated at 3.2, her lipase was 1430, her K = 3.3, Mag = 1.7, ethyl alcohol elevated, and LFTs elevated. started on IVFs, IV folic acid, IV Mag, IV thiamine, tested for alcohol. (2) Alcoholism, chronic: Onset Date: Unknown Code(s): F10.20 - Alcohol dependence, uncomplicated Status: Acute Assessment and Plan: She is not ready to quit and doesn't sound like her home environment would support her quitting alcohol consumption at this time. Ethylanol level was 59, significantly elevated at admission, now WNL. She is not currently having any s/s of withdrawal. Ativan PRN ordered. Fall and Aspiration Precautions ordered. (3) Hypoglycemia: Onset Date: ~09/01/19 Code(s): E16.2 - Hypoglycemia, unspecified Status: Acute Assessment and Plan: RESOLVED. A product of malnourishment IV Dextrose ordered PRN for glucose levels less than 90 ACHS/midnight/4am glucose checks. She does not use any medications oral or SQ to treat diabetes. She admitted that she drinks alcohol, doesn't eat, passes out, and skips meals for days. Discussed how she can set her phone alarm to wake her up every 3 hours for a snack or a meal. Discussed how she needs to have easy food handy to eat, such as instant outmeal or milk - that would provide her with longer lasting carbs. Will continue to monitor her glucose (4) Acute dehydration: Onset Date: ~09/01/19 Code(s): E86.0 - Dehydration Status: Acute Assessment and Plan: RESOLVED Treated with Banana Thiamine/Mag IVF, then 200ml/hr continuous IVFs, oral hydration. (5) Pancolitis: Code(s): K51.00 - Ulcerative (chronic) pancolitis without complications Status: Acute Assessment and Plan: Reports no N/V, only small bouts of diarrhea (loose continent stools of small volumes) for the last 2-3 days lactic acid was elevated at 3.2, but resolved to 1. 6. Day 1 hospitalization - no N/V/Abd pain - Allowed patient to eat Day 2 hospitalization - no N/V/Abd pain - Strict NPO with IVFs at 200 ml/hr Day 3 hospitalization - no N/V/Abd pain - Allowed patient to eat Lunch and Supper today, at 6pm Change to strict NPO with 200ml/hr IVFs ethyl alcohol now NORMAL, and LFTs IMPROVING K and Mag monitored and replenished as needed. Ordered Abdominal US for tomorrow. There is diffuse wall thickening throughout the colon with hyperemia of the vasa recta and adjacent inflammatory stranding of the surrounding fat. Small amount of fluid, unclear whether retroperitoneal or ascites posterior superior to the splenic flexure of the colon. IMPRESSION: 1. Pancolitis which could be infectious, inflammatory or less li
--- NOTE | 2019-09-03 17:00 | PC.NURSE ---
Blood transfusion started 1414: 99.5-22-795-107/69-97% PRBC 100ml/hr 1438: 99.1-49-573-119/74-98% PRBC 125ml/hr 1538: 99.1-50-474-118/82-100% PRBC 150ml/hr 1638: 98.8-20-84-128/78-98% PRBC 150ml/hr 1655: 98.9-20-86-128/80-97% PRBC 150ml/hr Stopped 284.3ml PRBC infused. No reaction noted or stated. 100ml NS.
[2019-09-03 17:06] LABS: Glucose Point of Care 95 (65-105)
[2019-09-03] MEDS: SODIUM CHLORIDE 0.9% IV 250 ML 150 ML IV CONT (17:25)
[2019-09-03] MEDS: NICOTINE (*PBKC) 21 MG PATCH 1 PATCH TRANSDERM (17:34)
[2019-09-03] MEDS: SODIUM CHLORIDE 0.9% IV 1,000 ML 200 ML IV CONT (17:38)
[2019-09-03 19:57] LABS: Hematocrit 24.3 % (35.0-49.0); Mean Corpuscular HGB Conc 32.9 g/dL (32.0-36.0); Mean Corpuscular Hemoglobin 32.1 pg (27.0-31.0); Mean Corpuscular Volume 97.6 fL (78.0-102.0); Mean Platelet Volume 9.5 fl (9.2-11.8); Platelet Count Result 50 K/mm3 (150-420); Red Blood Count 2.49 M/mm3 (4.20-5.40); Red Cell Distribution Width 16.9 % (11.6-14.4); White Blood Count 3.7 K/mm3 (4.8-10.8)
[2019-09-03 20:11] LABS: Lipase 1771 U/L (73-393)
[2019-09-03 21:16] LABS: Glucose Point of Care 102 (65-105)
[2019-09-04] VITALS: BP 140/99; PULSE 84; RESP 12; TEMP 36.6; O2SAT 96
[2019-09-04] MEDS: metroNIDAZOLE 500 MG/ISO 100ML 500 MG/100 ML BAG 100 MG IVPB ×2 (00:06→11:20)
[2019-09-04] MEDS: IPRATROPIUM 0.5 MG/ALBUTEROL SULFATE 2.5 MG AMPUL.NEB 3 ML INHALATION (00:06)
[2019-09-04 00:18] VITALS: PULSE 84
[2019-09-04] MEDS: SODIUM CHLORIDE 0.9% IV 1,000 ML 200 ML IV CONT ×2 (01:54→08:26)
[2019-09-04 04:00] VITALS: BP 111/87; PULSE 93; RESP 12; TEMP 36.6; O2SAT 99
[2019-09-04 06:04] LABS: Hemoglobin 8.3 g/dL (12.0-15.0); Immature Platelet Fraction Pct 2.2 % (1.0-7.0); Mean Corpuscular HGB Conc 33.2 g/dL (32.0-36.0); Mean Corpuscular Hemoglobin 32.4 pg (27.0-31.0); Mean Corpuscular Volume 97.7 fL (78.0-102.0); Mean Platelet Volume 10.6 fl (9.2-11.8); Platelet Count Result 60 K/mm3 (150-420); Red Blood Count 2.56 M/mm3 (4.20-5.40); Red Cell Distribution Width 17.5 % (11.6-14.4); White Blood Count 3.4 K/mm3 (4.8-10.8)
[2019-09-04 06:22] LABS: Alanine Aminotransferase 29 U/L (14-59); Albumin Level 2.5 g/dL (3.4-5.0); Alkaline Phosphatase 117 U/L (46-116); Amylase 92 U/L (25-115); Anion Gap 14.4 mmol/L (7-16); Aspartate Amino Transferase 22 U/L (15-37); Bilirubin,Total 0.4 mg/dL (0.00-1.00); Blood Urea Nitrogen 3 mg/dL (7-18); Carbon Dioxide 23 mmol/L (21-32); Chloride 110 mmol/L (98-108); Estimated CRCL calculation 63 ml/min; Estimated Glomerular Filt Rate > 60; Glucose 99 mg/dL (70-99); Lipase 988 U/L (73-393); Magnesium 1.5 mg/dL (1.8-2.4); Osmolality Calculated 294 mOsm/kg (285-295); Phosphorus 2.4 mg/dL (2.6-4.7); Potassium 3.4 mmol/L (3.5-5.1); Sodium 144 mmol/L (136-145); Total Protein 5.3 g/dL (6.4-8.2)
[2019-09-04 06:32] LABS: Band Neutrophils Percent 3 % (0-6); Basophils Percent Manual 0 % (0-1); Eosinophils Absolute Manual 0.06 K/mm3 (0.02-0.5); Eosinophils Percent Manual 2 % (1-6); Lymphocytes Absolute Manual 0.78 K/mm3 (1.1-4.5); Lymphocytes Percent Manual 23 % (18-44); Metamyelocytes Percent 2 %; Monocytes Absolute Manual 0.34 K/mm3 (0.1-0.90); Monocytes Percent Manual 10 % (3-9); Neutrophils Absolute Manual 2.14 K/mm3 (1.7-7.2); Neutrophils Percent Manual 60 % (46-73); Platelet Estimate Decreased (Adequate); Total Cells Counted 100
[2019-09-04 07:56] LABS: Glucose Point of Care 92 (65-105)
[2019-09-04 08:00] VITALS: BP 147/82; PULSE 93; PULSE 96; RESP 18; TEMP 37.1; O2SAT 96
--- NOTE | 2019-09-04 09:05 | PC.NURSE ---
to imaging via wheel chair
--- NOTE | 2019-09-04 09:11 | PC.NURSE ---
Patient taken off the floor by wheelchair to Ultrasound. Asisted patient to wheelchair x1 assist. patient weak by gait steady.
--- NOTE | 2019-09-04 10:04 | PC.NURSE ---
Returned to room from imaging
[2019-09-04] MEDS: NICOTINE (*PBKC) 21 MG PATCH 1 PATCH TRANSDERM (10:05)
[2019-09-04] MEDS: POTASSIUM CHLORIDE 10 MEQ TABLET PO (10:07)
[2019-09-04] MEDS: FOLIC ACID 1 MG TABLET PO (10:07)
[2019-09-04] MEDS: ASCORBIC ACID 500 MG TABLET PO (10:07)
[2019-09-04] MEDS: PANTOPRAZOLE 40 MG TABLET PO (10:07)
[2019-09-04] MEDS: FAMOTIDINE 20 MG TABLET PO (10:07)
[2019-09-04] MEDS: THIAMINE HCL 100 MG TABLET PO (10:07)
[2019-09-04] MEDS: CIPROFLOXACIN 400 MG/D5W 200ML 200 ML 200 MG IVPB (10:07)
--- NOTE | 2019-09-04 11:03 | PC.NURSE ---
ambulatory in the man, gait steady, denies needs
[2019-09-04] MEDS: KCL 20 MEQ/SW 100 ML 100 ML 50 MEQ IVPB ×2 (11:21→14:45)
[2019-09-04 11:50] LABS: Glucose Point of Care 77 (65-105)
[2019-09-04 12:00] VITALS: BP 127/88; PULSE 107; RESP 18; TEMP 37.2; O2SAT 99
--- NOTE | 2019-09-04 13:22 | P.PNIM_ITS ---
Progress Note: A&P Assessment and Plan (1) Acute pancreatitis: Onset Date: ~09/01/19 Qualifiers: Acute pancreatitis complication: unspecified Pancreatitis type: alcohol induced Qualified Code(s): K85.20 - Alcohol induced acute pancreatitis without necrosis or infection Code(s): K85.90 - Acute pancreatitis without necrosis or infection, unspecified Status: Acute Assessment and Plan: history of pancreatitis, alcohol abuse and grade 1 diastolic dysfunction along with chronic anemia. Chronic malnutrition. Reports no N/V, only small bouts of diarrhea (loose continent stools of small volumes) for the last 2-3 days lactic acid was elevated at 3.2, but resolved to 1. 6. Day 1 hospitalization - no N/V/Abd pain - Allowed patient to eat: lipase was 1430, then 1061 last night, then 1967 Day 2 hospitalization - no N/V/Abd pain - Strict NPO with IVFs at 200 ml/hr : lipase was 1218, then 1592. Day 3 hospitalization - no N/V/Abd pain - Allowed patient to eat Lunch and Supper today, at 6pm Change to strict NPO with 200ml/hr IVFs, recheck Lipase at 8pm and 8am. ethyl alcohol now NORMAL, and LFTs IMPROVING K and Mag monitored and replenished as needed. Ordered Abdominal US for tomorrow. In the ED: Her lactic acid was elevated at 3.2, her lipase was 1430, her K = 3.3, Mag = 1.7, ethyl alcohol elevated, and LFTs elevated. started on IVFs, IV folic acid, IV Mag, IV thiamine, tested for alcohol. (2) Alcoholism, chronic: Onset Date: Unknown Code(s): F10.20 - Alcohol dependence, uncomplicated Status: Acute Assessment and Plan: She is not ready to quit and doesn't sound like her home environment would support her quitting alcohol consumption at this time. Ethylanol level was 59, significantly elevated at admission, now WNL. She is not currently having any s/s of withdrawal. Ativan PRN ordered. Fall and Aspiration Precautions ordered. (3) Hypoglycemia: Onset Date: ~09/01/19 Code(s): E16.2 - Hypoglycemia, unspecified Status: Acute Assessment and Plan: RESOLVED. A product of malnourishment IV Dextrose ordered PRN for glucose levels less than 90 ACHS/midnight/4am glucose checks. She does not use any medications oral or SQ to treat diabetes. She admitted that she drinks alcohol, doesn't eat, passes out, and skips meals for days. Discussed how she can set her phone alarm to wake her up every 3 hours for a snack or a meal. Discussed how she needs to have easy food handy to eat, such as instant outmeal or milk - that would provide her with longer lasting carbs. Will continue to monitor her glucose (4) Acute dehydration: Onset Date: ~09/01/19 Code(s): E86.0 - Dehydration Status: Acute Assessment and Plan: RESOLVED Treated with Banana Thiamine/Mag IVF, then 200ml/hr continuous IVFs, oral hydration. (5) Pancolitis: Code(s): K51.00 - Ulcerative (chronic) pancolitis without complications Status: Acute Assessment and Plan: Reports no N/V, only small bouts of diarrhea (loose continent stools of small volumes) for the last 2-3 days lactic acid was elevated at 3.2, but resolved to 1. 6. Day 1 hospitalization - no N/V/Abd pain - Allowed patient to eat Day 2 hospitalization - no N/V/Abd pain - Strict NPO with IVFs at 200 ml/hr Day 3 hospitalization - no N/V/Abd pain - Allowed patient to eat Lunch and Supper today, at 6pm Change to strict NPO with 200ml/hr IVFs ethyl alcohol now NORMAL, and LFTs IMPROVING K and Mag monitored and replenished as needed. Ordered Abdominal US for tomorrow.
[2019-09-04] MEDS: MAGNESIUM SULF 4 GM/WATER100ML 4 GM/100 ML BAG IVPB (13:29)
--- NOTE | 2019-09-04 13:44 | PCOTNOTE ---
Patient refused OT this date and reports that she does not feel that she needs therapy. Patient seen for evaluation only and is discharged from skilled OT services secondary to patient refusal. MS
--- NOTE | 2019-09-04 13:45 | PC.NURSE ---
Potassium completed and magnesium started, fluids continue as ordered, did eat and will have repeat labs at 1400
[2019-09-04 14:08] LABS: Lipase 1148 U/L (73-393)
--- NOTE | 2019-09-04 14:14 | PC.NURSE ---
Walking in man, denies needs, gait steady
[2019-09-04 15:54] VITALS: BP 118/84; PULSE 92; RESP 20; TEMP 37.1; O2SAT 98
--- NOTE | 2019-09-04 16:18 | PM.DS ---
DS: Diagnosis Admitting Diagnosis Admitting Diagnosis: Alcohol induced acute pancreatitis without necrosis or infection Discharge Diagnosis (1) Acute pancreatitis: Onset Date: ~09/01/19 Qualifiers: Acute pancreatitis complication: unspecified Pancreatitis type: alcohol induced Qualified Code(s): K85.20 - Alcohol induced acute pancreatitis without necrosis or infection Code(s): K85.90 - Acute pancreatitis without necrosis or infection, unspecified Status: Acute Assessment and Plan: history of pancreatitis, alcohol abuse and grade 1 diastolic dysfunction along with chronic anemia. Chronic malnutrition. Reports no N/V, only small bouts of diarrhea (loose continent stools of small volumes) - Diarrhea has resolved with 4 days of IV antibiotics. lactic acid was elevated at 3.2, but resolved to 1. 6. Day 1 hospitalization - no N/V/Abd pain - Allowed patient to eat: lipase was 1430, then 1061 last night, then 1967 Day 2 hospitalization - no N/V/Abd pain - Strict NPO with IVFs at 200 ml/hr : lipase was 1218, then 1592. Day 3 hospitalization - no N/V/Abd pain - Allowed patient to eat Lunch and Supper today, at 6pm Change to strict NPO with 200ml/hr IVFs, recheck Lipase at 8pm and 8am. Day 4- today -lipase improved to 988 and even with eating a regular lunch meal only came up to 1148. Discussed with ED physician and patient will be discharged ethyl alcohol now NORMAL, and LFTs IMPROVING K and Mag monitored and replenished Abdominal US without acute concerns. (2) Alcoholism, chronic: Onset Date: Unknown Code(s): F10.20 - Alcohol dependence, uncomplicated Status: Acute Assessment and Plan: She has decided to quit drinking alcohol, her is supporting her, and surprisingly she has not had any withdrawal symptoms or signs, or DTs. Ethylanol level was 59, significantly elevated at admission, now WNL. She is not currently having any s/s of withdrawal. Fall and Aspiration Precautions ordered. (3) Hypoglycemia: Onset Date: ~09/01/19 Code(s): E16.2 - Hypoglycemia, unspecified Status: Acute Assessment and Plan: RESOLVED. A product of malnourishment IV Dextrose ordered PRN for glucose levels less than 90 ACHS/midnight/4am glucose checks. She does not use any medications oral or SQ to treat diabetes. She admitted that she drinks alcohol, doesn't eat, passes out, and skips meals for days. Discussed how she can set her phone alarm to wake her up every 3 hours for a snack or a meal. Discussed how she needs to have easy food handy to eat, such as instant outmeal or milk - that would provide her with longer lasting carbs. Will continue to monitor her glucose (4) Acute dehydration: Onset Date: ~09/01/19 Code(s): E86.0 - Dehydration Status: Acute Assessment and Plan: RESOLVED Treated with Banana Thiamine/Mag IVF, then 200ml/hr continuous IVFs, oral hydration. (5) Pancolitis: Code(s): K51.00 - Ulcerative (chronic) pancolitis without complications Status: Acute Assessment and Plan: IMPROVING. Reports no N/V, only small bouts of diarrhea (loose continent stools of small volumes) for the last 2-3 days lactic acid was elevated at 3.2, but resolved to 1. 6. Day 1 hospitalization - no N/V/Abd pain - Allowed patient to eat Day 2 hospitalization - no N/V/Abd pain - Strict NPO with IVFs at 200 ml/hr Day 3 hospitalization - no N/V/Abd pain - Allowed patient to eat Lunch and Supper today, at 6pm Change to strict NPO with 200ml/hr IVFs ethyl alcohol now NORMAL, and LFTs IMPROVING K and Mag monitored and replenished as needed. Ordered Abdominal US for tomorrow. There is diffuse wall thickening throughout the colon with hyperemia of the vasa recta and adjacent inflammatory stranding of the surrounding fat. Small amount of fluid, unclear whether retroperitoneal or ascites posterior superior to the splenic flexure of th
[2019-09-04] MEDS: IRON SUCROSE COMPLEX 200 MG in SODIUM CHLORIDE 0.9% IV 50 ML 100 MG IVPB (16:34)
[2019-09-04 16:46] LABS: Glucose Point of Care 97 (65-105)
[2019-09-05 20:35] LABS: H pylori Ag Stool Not Detected (Not Detected)
--- NOTE | 2019-09-20 13:54 | PC.NURSE ---
CALLED PATIENT FOR FOLLOW UP AFTER DISCHARGE ON THE 09/04/2019. PATIENTS STATES DOING WELL AND BACK TO WORK SAW MD FOR APPT ON 09/12/2019 AND WAS GIVEN SCRIPT FOR HER NEUROPATHY WHICH SHE FILLED. VERBALIZES SHE UNDERSTOOD ALL DISCHARGE INSTRUCTIONS AND ALL THE SERVISE WAS GOOD .
== END 2019-09-04 17:45 | disposition home or self-care (01) | DRG 439 ==
LOC: CHSED 10:59 → CHS2ND 11:01
PROVIDERS: Nurse Practitioner; Admitting Provider Emergency Medicine; Emergency Provider Emergency Medicine; PCP Internal Medicine; Visit Provider Emergency Medicine
DX: K85.20 Alcohol induced acute pancreatitis without necrosis or infection (principal); E46 Unspecified protein-calorie malnutrition; E86.0 Dehydration; F10.20 Alcohol dependence, uncomplicated; K52.89 Other specified noninfective gastroenteritis and colitis; K80.20 Calculus of gallbladder without cholecystitis without obstruction; J43.9 Emphysema, unspecified; E16.2 Hypoglycemia, unspecified; M89.8X8 Other specified disorders of bone, other site; D50.8 Other iron deficiency anemias; F17.200 Nicotine dependence, unspecified, uncomplicated
CPT/HCPCS: 36415; 36430; 70450; 71275; 74177; 76700; 80048; 80053; 80307; 81001; 82150; 82272; 82728; 82948; 83540; 83550; 83605; 83690; 83735; 83880; 84100; 84484; 85025; 85027; 85055; 85380; 85610; 85730; 86850; 86900; 86901; 86920; 87040; 87045; 87046; 87086; 87088; 87269; 87272; 87338; 87427; 89055; 93005; 93970; 94640; 96365; 96366; 96368; 96375; 97161; 97165; 99285; A9270; J0696; J0744; J1756; J3411; J3475; J3480; J7030; J7050; J7120; J7121; P9016; Q9965

== ENCOUNTER 2019-09-06 14:03 | Outpatient (CLI) | payer BC, SELFPAY ==
--- NOTE | ~2019-09-06 | MR_ITS ---
EXAMINATION: MR thoracic spine wo/w con DATE: 09/06/2019 15:56 INDICATION: T10 bone lesion. TECHNIQUE: Magnetic resonance imaging (MRI) of the thoracic spine was performed without and with 10 m L MultiHance intravenous contrast. Sequences included sagittal and axial T2-weighted FSE, sagittal T2 -weighted FS FSE, and sagittal and axial T1-weighted FSE. Postcontrast sequences included sagittal an d axial T1-weighted FS FSE. COMPARISON: Chest CT 09/01/2019, CT abdomen and pelvis 03/23/2016 FINDINGS: There is kyphosis in cervical spine. Bone alignment is normal and thoracic spine. There are Schmorl's nodes of the inferior endplates of T9-T11 vertebral bodies. There is a benign bone island in T10 vertebral body, stable from 03/23/2016. There is mildly decreased disc height at T9-T10. At T9- T10, the disc is bulging with mild central canal stenosis. There is multilevel facet joint osteoarthr itis in thoracic spine, severe on the right at T11-T12 and on the left at T9-T10. No neural foraminal stenosis. IMPRESSION: 1. Benign bone island in T10 vertebral body, stable from 03/23/2016. 2. Mild thoracic spondylosis. Reviewed, dictated and finalized at location A.
== END 2019-09-06 14:04 | disposition home or self-care (01) ==
LOC: CHSIMG 14:04
PROVIDERS: PCP Internal Medicine; Visit Provider Nurse Practitioner
DX: M89.9 Disorder of bone, unspecified (principal); R91.8 Other nonspecific abnormal finding of lung field
CPT/HCPCS: 72157; A9577

== ENCOUNTER 2019-09-11 15:05 | Outpatient (RCR) | payer BC, SELFPAY ==
[2019-08-15 13:10] LABS: Basophils Absolute Auto 0.08 K/mm3 (0.00-0.10); Basophils Percent Auto 0.4 % (0.0-1.0); Eosinophils Absolute Auto 0.08 K/mm3 (0.02-0.50); Eosinophils Percent Auto 0.4 % (1.0-6.0); Hematocrit 34.1 % (35.0-49.0); Hemoglobin 10.8 g/dL (12.0-15.0); Immature Granulocyte Absolute 0.19 K/mm3 (0.00-0.00); Lymphocytes Absolute Auto 1.25 K/mm3 (1.10-4.50); Lymphocytes Percent Auto 6.3 % (18.0-42.0); Mean Corpuscular HGB Conc 31.7 g/dL (32.0-36.0); Mean Corpuscular Hemoglobin 32.5 pg (27.0-31.0); Mean Corpuscular Volume 102.7 fL (78.0-102.0); Mean Platelet Volume 9.9 fl (9.2-11.8); Monocytes Absolute Auto 0.56 K/mm3 (0.10-0.90); Monocytes Percent Auto 2.8 % (2.0-11.0); Neutrophils Absolute Auto 17.7 K/mm3 (1.7-7.2); Neutrophils Percent Auto 89.1 % (50.0-70.0); Platelet Count Result 127 K/mm3 (150-420); Red Blood Count 3.32 M/mm3 (4.20-5.40); Red Cell Distribution Width 13.8 % (11.6-14.4); White Blood Count 19.9 K/mm3 (4.8-10.8)
[2019-09-11 15:16] LABS: Basophils Absolute Auto 0.05 K/mm3 (0.00-0.10); Basophils Percent Auto 0.8 % (0.0-1.0); Eosinophils Absolute Auto 0.08 K/mm3 (0.02-0.50); Eosinophils Percent Auto 1.3 % (1.0-6.0); Hematocrit 29.8 % (35.0-49.0); Hemoglobin 9.5 g/dL (12.0-15.0); Immature Granulocyte Absolute 0.04 K/mm3 (0.00-0.00); Immature Granulocyte Percent A 0.7 % (0.0-0.0); Lymphocytes Absolute Auto 1.49 K/mm3 (1.10-4.50); Lymphocytes Percent Auto 24.4 % (18.0-42.0); Mean Corpuscular HGB Conc 31.9 g/dL (32.0-36.0); Mean Corpuscular Hemoglobin 32.6 pg (27.0-31.0); Mean Corpuscular Volume 102.4 fL (78.0-102.0); Mean Platelet Volume 9.6 fl (9.2-11.8); Monocytes Absolute Auto 0.84 K/mm3 (0.10-0.90); Monocytes Percent Auto 13.8 % (2.0-11.0); Neutrophils Absolute Auto 3.6 K/mm3 (1.7-7.2); Platelet Count Result 305 K/mm3 (150-420); Red Blood Count 2.91 M/mm3 (4.20-5.40); Red Cell Distribution Width 18.6 % (11.6-14.4); White Blood Count 6.1 K/mm3 (4.8-10.8)
== END 2019-11-13 23:59 | disposition home or self-care (01) ==
LOC: CHSLAB 15:05
PROVIDERS: PCP Internal Medicine; Visit Provider Internal Medicine Hematology & Oncology
DX: D70.9 Neutropenia, unspecified (principal)
CPT/HCPCS: 36415; 85025

== ENCOUNTER 2019-09-22 09:22 | Outpatient (CLI) | payer BC, SELFPAY ==
[2019-09-22 09:34] LABS: Basophils Absolute Auto 0.06 K/mm3 (0.00-0.10); Basophils Percent Auto 0.5 % (0.0-1.0); Eosinophils Absolute Auto 0.32 K/mm3 (0.02-0.50); Eosinophils Percent Auto 2.4 % (1.0-6.0); Hematocrit 32.4 % (35.0-49.0); Hemoglobin 10.2 g/dL (12.0-15.0); Immature Granulocyte Absolute 0.13 K/mm3 (0.00-0.00); Lymphocytes Absolute Auto 2.32 K/mm3 (1.10-4.50); Lymphocytes Percent Auto 17.5 % (18.0-42.0); Mean Corpuscular HGB Conc 31.5 g/dL (32.0-36.0); Mean Corpuscular Hemoglobin 31.2 pg (27.0-31.0); Mean Corpuscular Volume 99.1 fL (78.0-102.0); Mean Platelet Volume 9.1 fl (9.2-11.8); Monocytes Absolute Auto 0.93 K/mm3 (0.10-0.90); Neutrophils Absolute Auto 9.5 K/mm3 (1.7-7.2); Neutrophils Percent Auto 71.6 % (50.0-70.0); Platelet Count Result 546 K/mm3 (150-420); Red Blood Count 3.27 M/mm3 (4.20-5.40); Red Cell Distribution Width 16.2 % (11.6-14.4); White Blood Count 13.3 K/mm3 (4.8-10.8)
[2019-09-22 10:02] LABS: Alanine Aminotransferase 15 U/L (14-59); Albumin Level 2.6 g/dL (3.4-5.0); Alkaline Phosphatase 210 U/L (46-116); Anion Gap 16.5 mmol/L (7-16); Aspartate Amino Transferase 23 U/L (15-37); Bilirubin,Total 0.1 mg/dL (0.00-1.00); Blood Urea Nitrogen 10 mg/dL (7-18); Calcium 8.8 mg/dL (8.5-10.1); Carbon Dioxide 20 mmol/L (21-32); Chloride 106 mmol/L (98-108); Estimated Glomerular Filt Rate > 60; Glucose 112 mg/dL (70-99); Magnesium 1.6 mg/dL (1.8-2.4); Osmolality Calculated 288 mOsm/kg (285-295); Phosphorus 3.1 mg/dL (2.6-4.7); Potassium 3.5 mmol/L (3.5-5.1); Sodium 139 mmol/L (136-145); Total Protein 6.9 g/dL (6.4-8.2)
== END 2019-09-22 09:23 | disposition home or self-care (01) ==
LOC: CHSLAB 09:24
PROVIDERS: PCP Internal Medicine; Visit Provider Internal Medicine
DX: R60.9 Edema, unspecified (principal); E88.09 Other disorders of plasma-protein metabolism, not elsewhere classified
CPT/HCPCS: 36415; 80053; 83735; 84100; 85025

== ENCOUNTER 2019-10-16 09:56 | Outpatient (CLI) | payer BC, SELFPAY ==
[2019-10-16 10:09] LABS: Basophils Absolute Auto 0.05 K/mm3 (0.00-0.10); Basophils Percent Auto 0.6 % (0.0-1.0); Eosinophils Absolute Auto 0.16 K/mm3 (0.02-0.50); Eosinophils Percent Auto 1.9 % (1.0-6.0); Hematocrit 36.8 % (35.0-49.0); Immature Granulocyte Absolute 0.02 K/mm3 (0.00-0.00); Immature Granulocyte Percent A 0.2 % (0.0-0.0); Lymphocytes Absolute Auto 1.81 K/mm3 (1.10-4.50); Lymphocytes Percent Auto 21.3 % (18.0-42.0); Mean Corpuscular HGB Conc 32.6 g/dL (32.0-36.0); Mean Corpuscular Hemoglobin 32.7 pg (27.0-31.0); Mean Corpuscular Volume 100.3 fL (78.0-102.0); Monocytes Absolute Auto 0.87 K/mm3 (0.10-0.90); Monocytes Percent Auto 10.2 % (2.0-11.0); Neutrophils Absolute Auto 5.6 K/mm3 (1.7-7.2); Neutrophils Percent Auto 65.8 % (50.0-70.0); Platelet Count Result 335 K/mm3 (150-420); Red Blood Count 3.67 M/mm3 (4.20-5.40); Red Cell Distribution Width 16.7 % (11.6-14.4); White Blood Count 8.5 K/mm3 (4.8-10.8)
[2019-10-16 10:42] LABS: Alanine Aminotransferase 20 U/L (14-59); Alkaline Phosphatase 242 U/L (46-116); Anion Gap 17.3 mmol/L (7-16); Aspartate Amino Transferase 27 U/L (15-37); Bilirubin,Total 0.2 mg/dL (0.00-1.00); Blood Urea Nitrogen 9 mg/dL (7-18); Calcium 9.4 mg/dL (8.5-10.1); Carbon Dioxide 22 mmol/L (21-32); Chloride 104 mmol/L (98-108); Estimated Glomerular Filt Rate > 60; Glucose 134 mg/dL (70-99); Osmolality Calculated 290 mOsm/kg (285-295); Potassium 3.3 mmol/L (3.5-5.1); Sodium 140 mmol/L (136-145); Total Protein 7.1 g/dL (6.4-8.2)
== END 2019-10-16 09:57 | disposition home or self-care (01) ==
LOC: CHSLAB 09:57
PROVIDERS: PCP Internal Medicine; Visit Provider Internal Medicine Hematology & Oncology
DX: D70.9 Neutropenia, unspecified (principal)
CPT/HCPCS: 36415; 80053; 85025

== ENCOUNTER 2020-03-25 07:42 | Outpatient (CLI) | payer BC, SELFPAY ==
[2020-03-25 08:32] LABS: Cholesterol 226 mg/dL (0-200); HDL Direct 60 mg/dL (40-60); LDL Cholesterol Calculated 117 mg/dL (<130); Triglycerides 244 mg/dL (0-150)
== END 2020-03-25 07:43 | disposition home or self-care (01) ==
LOC: CHSLAB 07:44
PROVIDERS: PCP Internal Medicine; Visit Provider Internal Medicine Cardiovascular Disease
DX: I10 Essential (primary) hypertension (principal)
CPT/HCPCS: 36415; 80061

== ENCOUNTER 2020-07-18 09:55 | Outpatient (CLI) | payer BC, SELFPAY ==
[2020-07-18 10:50] LABS: SARS-CoV-2 Ag Negative (Negative)
== END 2020-07-18 09:56 | disposition home or self-care (01) ==
PROVIDERS: PCP Internal Medicine; Visit Provider Internal Medicine
DX: Z20.822 Contact with and (suspected) exposure to COVID-19 (principal)
CPT/HCPCS: 87426; C9803

== ENCOUNTER 2020-09-02 21:23 | Emergency (ER) | payer BC, SELFPAY ==
--- NOTE | ~2020-09-02 | CT_ITS ---
EXAMINATION: CT brain wo con DATE: 09/02/2020 22:00 INDICATION: Status post fall. Head injury. Posterior laceration. TECHNIQUE: Computed tomography (CT) of the head was performed without intravenous contrast. The dose- length product was 605.33 mGy-cm. Automated exposure control and iterative reconstruction technique w ere employed. COMPARISON: CT dated 09/01/2019 FINDINGS: There is an acute left parietal subdural hemorrhage with maximum thickness measuring approx imately 5 mm. There is a large amount of posterior scalp swelling with areas of punctate soft tissue gas, consistent with laceration. No depressed skull fractures are identified. Paranasal sinuses and m astoids are pneumatized. No ventriculomegaly or midline shift. No acute intracranial infarction, mass . Basilar cisterns are patent. IMPRESSION: 1. Acute left parietal subdural hemorrhage. Dr. Kenney Lujan discussed with Dr. Evert Ervin MD at 09/02/2020 22:17 BODY STYLIST. Reviewed, dictated and finalized at location A. STYLIST
--- NOTE | ~2020-09-02 | CT_ITS ---
EXAMINATION: CT cervical spine wo con DATE: 09/02/2020 22:59 INDICATION: Status post fall. Neck pain. TECHNIQUE: Computed tomography (CT) of the cervical spine was performed without intravenous contrast. The dose-length product was 105 mGy-cm. Automated exposure control and iterative reconstruction tech nique were employed. COMPARISON: CT dated 11/17/2018 FINDINGS: There is reversal of normal cervical lordosis. There is wedge shaped appearance to C4 and C 5 which appears chronic. There is degenerative retrolisthesis at C5-6. There is multilevel uncinate d egenerative change. Lung apices are unremarkable. There are degenerative changes of the temporomandib ular joints, left greater than right. There is carotid atherosclerosis. No significant paraspinal sof t tissue abnormality. IMPRESSION: 1. No acute abnormality of the cervical spine. 2: Moderate cervical spondylosis. Reviewed, dictated and finalized at location A. TENDER ASSISTANT
[2020-09-02 21:33] VITALS: BP 111/80; PULSE 88; RESP 16; TEMP 36.6; O2SAT 96
--- NOTE | 2020-09-02 21:35 | ED.HEATRA ---
HPI - Head Injury General Chief complaint: Wound/Laceration Stated complaint: cut head open Time Seen by Provider: 09/02/20 21:35 Source: patient Mode of arrival: ambulatory Limitations: no limitations History of Present Illness HPI Narrative: 49-year-old woman comes in today complaining of a head injury that occurred this evening. Patient states that she was getting of the shower and tripped, falling to the ground striking the back of her head on part of the shower. She has a laceration. She denies loss of consciousness, visual changes, difficulty walking, nausea or vomiting. She states that she has been drinking today. Complaint: head injury and fall Onset (ago): hour(s) (1) Mechanism of Injury: fall Place: home Loss of Consciousness: no Location of injury: occipital Severity: moderate Quality: sharp Radiation: none Other Injuries: none Context: recent alcohol use Associated symptoms: denies other symptoms Related Data Home Medications Medication Instructions Recorded Confirmed ergocalciferol (vitamin D2) 1,250 mcg PO MONTHLY 09/01/19 09/02/20 duloxetine 60 mg capsule,delayed 60 mg PO DAILY 03/18/20 09/02/20 release Allergies Allergy/AdvReac Type Severity Reaction Status Date / Time citric acid Allergy Unknown throat Verified 03/18/20 13:19 edema SEASONAL Allergy Unknown ITCHING Uncoded 03/18/20 13:19 Review of Systems Constitutional: Constitutional: Denies chills and Denies fever(s) Eyes: Eyes: Denies change in vision and Denies photophobia ENT: Denies nasal congestion and Denies sore throat Cardiovascular: Cardiovascular: Denies chest pain and Denies radiating jaw, neck or arm pain Respiratory: Respiratory: Denies cough and Denies dyspnea Gastrointestinal: Gastrointestinal: Denies abdominal pain, Denies nausea and Denies vomiting Genitourinary: Genitourinary: Denies nocturia and Denies dysuria Musculoskeletal: Musculoskeletal: Denies arthralgias and Denies joint swelling Integumentary/Breasts: Skin/Breast: Reports as per HPI, Denies pruritus, Denies erythema and Denies rash Neurologic: Denies vertigo, Denies dizziness and Denies syncope Hematologic/Lymphatic: Hematologic/Lymphatic: Denies easy bleeding and Denies easy bruising Allergic/Immunologic: Allergic/Immunologic: Denies lip swelling and Denies throat swelling [facility] Past Medical History Medical History (Updated 09/02/20 @ 23:36 by Evert Ervin MD) Chronic alcoholism Chronic anemia Chronic pancreatitis Tobacco abuse Surgical History Surgical History (Updated 09/02/20 @ 22:37 by Evert Ervin MD) H/O knee surgery H/O shoulder surgery H/O: hysterectomy History of throat surgery Family History Family History Mother Diabetes mellitus Family history of arthritis Family history of congestive heart failure Father Family history of Alzheimer's disease Other Family history of malignant neoplasm Social History Social History Smoking packs per day: 1 Smoking cigarettes per day: 20.0 Years smoked: 30 Smoking pack-years: 30.00 Smoking status: Current every day smoker Tobacco type: cigarettes Second hand tobacco smoke exposure: Yes Alcohol intake: current Drinks per week: 28 Substance use type: does not use Gender identity (if verbalized by the patient): Female Spiritual care concerns: No Agree to blood products: Yes Exam Const: General: no acute distress, alert and ill appearing chronically Nutritional Appearance: thin Orientation/consciousness: patient oriented x3 HENMT: Head: laceration (5 cm on occiput) Ears: external ears normal, TM's normal bilaterally and EAC's normal General nose exam: Normal nares present Face and sinus: normal facial exam Mouth: Yes moist mucous membranes Throat: posterior oropharynx normal Eyes: Conjunctivae: conjunctivae
[2020-09-02] MEDS: LIDO 1%/EPINEPHRINE 1:100,000 20 ML VIAL 10 ML INFILTRATE (21:46)
--- NOTE | 2020-09-02 21:48 | PC.NURSE ---
gait steady, denies dizzy & weakness
--- NOTE | 2020-09-02 22:28 | PC.NURSE ---
cleaning wound, specifications writer calling [facility]. Films pushed to [facility]
[2020-09-02 22:45] LABS: Basophils Absolute Auto 0.04 K/mm3 (0.00-0.10); Basophils Percent Auto 0.3 % (0.0-1.0); Eosinophils Absolute Auto 0.05 K/mm3 (0.02-0.50); Eosinophils Percent Auto 0.4 % (1.0-6.0); Hematocrit 25.9 % (35.0-49.0); Hemoglobin 9.3 g/dL (12.0-15.0); Immature Granulocyte Percent A 0.7 % (0.0-0.0); Lymphocytes Absolute Auto 1.08 K/mm3 (1.10-4.50); Lymphocytes Percent Auto 7.9 % (18.0-42.0); Mean Corpuscular HGB Conc 35.9 g/dL (32.0-36.0); Mean Corpuscular Hemoglobin 35.4 pg (27.0-31.0); Mean Corpuscular Volume 98.5 fL (78.0-102.0); Mean Platelet Volume 9.7 fl (9.2-11.8); Monocytes Absolute Auto 1.09 K/mm3 (0.10-0.90); Neutrophils Absolute Auto 11.3 K/mm3 (1.7-7.2); Neutrophils Percent Auto 82.7 % (50.0-70.0); Nucleated Red Blood Cells Absolute Auto 0.09 K/mm3 (0.00-0.00); Nucleated Red Blood Cells Perc 0.7 % (0-0.0); Platelet Count Result 269 K/mm3 (150-420); Red Blood Count 2.63 M/mm3 (4.20-5.40); Red Cell Distribution Width 14.5 % (11.6-14.4); White Blood Count 13.6 K/mm3 (4.8-10.8)
[2020-09-02 23:00] LABS: INR 1.2; Partial Thromboplastin Time 30.2 SEC (23.90-30.70); Prothrombin Time 12.3 Seconds (9.50-12.10)
[2020-09-02 23:01] LABS: Alanine Aminotransferase 41 U/L (14-59); Alkaline Phosphatase 782 U/L (46-116); Aspartate Amino Transferase 146 U/L (15-37); Bilirubin,Total 1.3 mg/dL (0.00-1.00); Blood Urea Nitrogen 18 mg/dL (7-18); Calcium 7.9 mg/dL (8.5-10.1); Carbon Dioxide 24 mmol/L (21-32); Estimated CRCL calculation 23 ml/min; Estimated Glomerular Filt Rate 27; Ethanol 45 mg/dL (0-6); Glucose 120 mg/dL (70-99); Total Protein 6.5 g/dL (6.4-8.2)
[2020-09-02 23:06] LABS: Anion Gap 16 mmol/L (8-16); Chloride 88 mmol/L (98-108); Osmolality Calculated 268 mOsm/kg (285-295); Sodium 128 mmol/L (136-145)
[2020-09-02 23:08] LABS: Potassium 1.8 mmol/L (3.5-5.1)
--- NOTE | 2020-09-02 23:15 | ECG_ITS ---
Measurements Intervals [place] Rate: 104 P: 68 [place]: 117 QRS: 70 QRSD: 102 T: 60 QT: 389 QTc: 512 Interpretive Statements SINUS TACHYCARDIA WITH SHORT [place] INTERVAL BORDERLINE ST ABNORMALITY- ANTEROLAT/INF LEADS BASELINE ARTIFACT- I, II, III, AVR, AVL, AVF, V1-V6 BORDERLINE ECG Electronically Signed On 09-03-2020 8:14:20 RETAIL KEY HOLDER by Wilfredo Covington D.O.
--- NOTE | 2020-09-02 23:15 | PC.NURSE ---
No available [facility] for pt. transfer at this time, unknown ETA for pt. transport. Call placed to [facility] for transport, They accept for pt. transfer c ETA of less than 1 hr. Pt. Pt. on monitor, remains stable, no distress, A&O x3.
[2020-09-02] MEDS: KCL 20 MEQ/SW 100 ML 100 ML 50 MEQ IVPB (23:21)
[2020-09-02] MEDS: SODIUM CHLORIDE 0.9% IV 1,000 ML 150 ML IV CONT (23:21)
[2020-09-02 23:24] LABS: Creatine Kinase 128 U/L (26-192); Magnesium 1.1 mg/dL (1.8-2.4); Phosphorus 3.8 mg/dL (2.6-4.7)
[2020-09-02] MEDS: POTASSIUM CHLORIDE 20 MEQ PACKET (FOR LIQUID) 40 MEQ PO (23:25)
[2020-09-03] MEDS: ONDANSETRON HCL ODT 4 MG TABLET PO (00:04)
[2020-09-03 00:09] VITALS: BP 149/94
== END 2020-09-03 00:30 | disposition short-term general hospital (02) ==
PROVIDERS: Emergency Provider Emergency Medicine; PCP Internal Medicine
DX: S06.5X0A Traumatic subdural hemorrhage without loss of consciousness, initial encounter (principal); F10.20 Alcohol dependence, uncomplicated; E87.6 Hypokalemia; S01.01XA Laceration without foreign body of scalp, initial encounter; N17.9 Acute kidney failure, unspecified; W18.2XXA Fall in (into) shower or empty bathtub, initial encounter
CPT/HCPCS: 12032; 36415; 70450; 72125; 80053; 80307; 82550; 83735; 84100; 85025; 85610; 85730; 93005; 96365; 99285; A9270; J3480; J7030; L0150

== ENCOUNTER 2020-09-16 14:14 | Outpatient (CLI) | payer BC, SELFPAY ==
[2020-09-16 15:00] LABS: Alanine Aminotransferase 40 U/L (14-59); Alkaline Phosphatase 802 U/L (46-116); Anion Gap 19 mmol/L (8-16); Aspartate Amino Transferase 55 U/L (15-37); Bilirubin,Total 0.5 mg/dL (0.00-1.00); Blood Urea Nitrogen 7 mg/dL (7-18); Calcium 8.6 mg/dL (8.5-10.1); Carbon Dioxide 15 mmol/L (21-32); Chloride 106 mmol/L (98-108); Estimated Glomerular Filt Rate 51; Glucose 133 mg/dL (70-99); Magnesium 1.8 mg/dL (1.8-2.4); Osmolality Calculated 290 mOsm/kg (285-295); Potassium 3.1 mmol/L (3.5-5.1); Sodium 140 mmol/L (136-145); Total Protein 6.4 g/dL (6.4-8.2)
== END 2020-09-16 14:15 | disposition home or self-care (01) ==
LOC: CHSLAB 14:15
PROVIDERS: PCP Internal Medicine; Visit Provider Internal Medicine Cardiovascular Disease
DX: R60.0 Localized edema (principal)
CPT/HCPCS: 36415; 80053; 83735

== ENCOUNTER 2020-09-30 07:39 | Outpatient (CLI) | payer BC, SELFPAY ==
[2020-09-30 09:13] LABS: Alanine Aminotransferase 25 U/L (14-59); Albumin Level 1.8 g/dL (3.4-5.0); Alkaline Phosphatase 427 U/L (46-116); Anion Gap 13 mmol/L (8-16); Aspartate Amino Transferase 49 U/L (15-37); Bilirubin,Total 0.3 mg/dL (0.00-1.00); Blood Urea Nitrogen 7 mg/dL (7-18); Calcium 8.3 mg/dL (8.5-10.1); Carbon Dioxide 22 mmol/L (21-32); Chloride 106 mmol/L (98-108); Estimated Glomerular Filt Rate 56; Glucose 122 mg/dL (70-99); Magnesium 1.6 mg/dL (1.8-2.4); Osmolality Calculated 291 mOsm/kg (285-295); Potassium 3.8 mmol/L (3.5-5.1); Sodium 141 mmol/L (136-145); Total Protein 5.8 g/dL (6.4-8.2)
== END 2020-09-30 07:40 | disposition home or self-care (01) ==
LOC: CHSLAB 07:42
PROVIDERS: PCP Internal Medicine; Visit Provider Internal Medicine Cardiovascular Disease
DX: D50.8 Other iron deficiency anemias (principal); K85.20 Alcohol induced acute pancreatitis without necrosis or infection; K51.00 Ulcerative (chronic) pancolitis without complications
CPT/HCPCS: 36415; 80053; 83735

== ENCOUNTER 2020-10-30 09:20 | Emergency (ER) | payer BC, SELFPAY ==
[2020-10-30] VITALS (9 sets, daily range): BP systolic 96–131; BP diastolic 73–92; PULSE 80–101; RESP 14–23; TEMP 36.6; O2SAT 100
--- NOTE | ~2020-10-30 | CT_ITS ---
EXAMINATION: CT brain wo con EXAM DATE: 10/30/2020 10:55 INDICATION: Paralysis of left arm L arm weakness and light headed. Elevated d-dimer. Shortness of anel ath. TECHNIQUE: Spiral CT of the head was performed without contrast. Axial, coronal and sagittal images were reviewed. The dose-length product (DLP) for this examination was 605.33 mGy-cm. The exposure w as tailored according to patient size, and iterative reconstruction (ASIR) was used as additional dos e reduction technique. Comparison is made to prior examination from 09/15/2020. FINDINGS: Interval development of several hypodense regions in the left side of the cerebellum, large st region measuring about 1.8 cm. Probably acute infarctions. There is also a left thalamic hypodensi ty, lacunar infarction which was not present on the prior study, however this is more hypodense than the cerebellar infarction, has more subacute or chronic appearance. Mild microangiopathy and cerebral atrophy. No obstructive hydrocephalus or acute intracranial hemorrh age. Mildly enlarged right-sided subdural space compared to previous examination, with fluid density, could be hygroma or an old small subdural hematoma. The contralateral acute subdural hematoma has re solved. IMPRESSION: 1. Several acute-appearing left-sided cerebellar infarctions. 2. Subacute or chronic left thalamic lacunar infarction. 3. Small right-sided fluid density subdural collection, hygroma or sequela from prior subdural hemat sharon. 4. Resolution of previously seen left subdural hematoma. Reviewed, dictated and finalized at location B. IMPRESSION: 1. Several acute-appearing left-sided cerebellar infarctions. 2. Subacute or chronic left thalamic lacunar infarction. 3. Small right-sided fluid density subdural collection, hygroma or sequela fro m prior subdural hematoma. 4. Resolution of previously seen left subdural hematoma.
--- NOTE | ~2020-10-30 | CT_ITS ---
EXAMINATION: CTA chest PE protocol EXAM DATE: 10/30/2020 10:58 INDICATION: SOB, elevated D-dimer SOB, COPD, smoker, elev. D dimer . TECHNIQUE: Spiral CTA of the chest (pulmonary arteries) was performed with 100 cc Omnipaque 350 intr avenous contrast injection. Images were acquired during the pulmonary arterial phase. Coronal maxi mum intensity projection 3D-reconstructions were created by the technologist on dedicated workstation . Axial, coronal and sagittal reformatted images were reviewed. The dose-length product (DLP) for t his examination was 118.99 mGy-cm. The exposure was tailored according to patient size (auto mA exp osure control), and iterative reconstruction (ASIR) was used as additional dose reduction technique. Comparison is made to prior examination from 09/01/2019. FINDINGS: Pulmonary arteries are well opacified and without intraluminal filling defects. No thora cic aortic dissection. Small pericardial effusion. No pleural effusions. There are scattered small u pper lobe nodules up to about 4 mm unchanged, noncalcified granulomas unchanged. There is mild to mod erate emphysema and hyperinflation. Tracheobronchial tree is patent. There is no mediastinal, hilar or axillary lymphadenopathy. There is no pneumothorax. Heart normal in size. There is mild cor onary arterial calcification, arterial sclerosis. Severe hepatic steatosis. Small bone island in T1 0. Multiple subacute left rib fractures. IMPRESSION: 1. No pulmonary emboli. 2. Scattered upper lobe granulomas. 3. Mild to moderate emphysema. 4. Hepatic steatosis. 5. Subacute left rib fractures. Reviewed, dictated and finalized at location B.
--- NOTE | 2020-10-30 09:34 | ECG_ITS ---
Measurements Intervals [place] Rate: 95 P: 80 [place]: 125 QRS: 87 QRSD: 98 T: 85 QT: 403 QTc: 507 Interpretive Statements SINUS RHYTHM MINIMAL Q WAVES- INFERIOR LEADS ST-T WAVE ABNORMALITY IN ANTEROLAT/INF LEADS- CONSIDER ISCHEMIA BASELINE ARTIFACT- I ABNORMAL ECG Electronically Signed On 10-30-2020 9:50:40 CDT by Wilfredo Covington D.O.
--- NOTE | 2020-10-30 09:53 | ED.GENADULT ---
HPI - General Adult General Chief complaint: Shortness of Breath/Dyspnea Stated complaint: sob Source: patient Mode of arrival: ambulatory Limitations: no limitations History of Present Illness HPI narrative: Dinah is a 50F with a complex PMH including anemia, lytic bone lesions, chronic pancreatitis, tobacco abuse, history of etoh abuse, HTN, diastolic CHF, emphysema and a history of severe electrolyte disturbances that presented to the ED with SOB and left arm weakness. She started feeling poor yesterday 28 hours ago. She woke up feeling SOB and week and had a couple episodes of watery vomit. She had a fall where she did not hit her head or neck or lose consciousness. She then went to the couch where she continued to feel poor and had worsening SOB. She woke up this morning with the same symptoms but could not lift her left arm. She denies CP, GOMEZ, vision changes, slurred speech, abdominal pain, and confusion. Related Data Home Medications Medication Instructions Recorded Confirmed ergocalciferol (vitamin D2) 1,250 mcg PO MONTHLY 09/01/19 10/30/20 duloxetine 60 mg capsule,delayed 90 mg PO DAILY 03/18/20 10/30/20 release potassium chloride 10 meq PO DAILY 10/30/20 10/30/20 Allergies Allergy/AdvReac Type Severity Reaction Status Date / Time citric acid Allergy Unknown throat Verified 09/16/20 13:35 edema SEASONAL Allergy Unknown ITCHING Uncoded 09/16/20 13:35 Review of Systems Constitutional: Constitutional: Denies chills, Reports fatigue, Denies fever(s) and Reports weakness Eyes: Eyes: Reports no additional eye complaints ENT: Reports system reviewed and no additional complaints, except as documented Cardiovascular: Cardiovascular: Reports as per HPI Respiratory: Respiratory: Reports as per HPI Gastrointestinal: Comments: watery diarrhea Genitourinary: Genitourinary: Reports no additional female genitourinary complaints Musculoskeletal: Musculoskeletal: Reports as per HPI Integumentary/Breasts: Skin/Breast: Reports system reviewed and no additional complaints, except as docu Neurologic: Reports as per HPI Psychiatric: Psychiatric: Reports no additional psychiatric complaints Endocrine: Endocrine: Reports no additional endocrine complaints Hematologic/Lymphatic: Hematologic/Lymphatic: Reports no additional hematologic/lymphatic complaints Allergic/Immunologic: Allergic/Immunologic: Reports no additional allergic/immunologic complaints [facility] Past Medical History Medical History Chronic alcoholism Chronic anemia Chronic pancreatitis Tobacco abuse Surgical History Surgical History H/O knee surgery H/O shoulder surgery H/O: hysterectomy History of throat surgery Family History Family History Mother Diabetes mellitus Family history of arthritis Family history of congestive heart failure Father Family history of Alzheimer's disease Other Family history of malignant neoplasm Social History Social History Smoking packs per day: 1 Smoking cigarettes per day: 20.0 Years smoked: 30 Smoking pack-years: 30.00 Smoking status: Current every day smoker Tobacco type: cigarettes Second hand tobacco smoke exposure: Yes Alcohol intake: current Drinks per week: 28 Substance use type: does not use Gender identity (if verbalized by the patient): Female Spiritual care concerns: No Agree to blood products: Yes Exam Const: General: no acute distress and alert Orientation/consciousness: patient oriented x3 Limitations: No altered mental status HENMT: Head: normal to inspection Mouth: Yes Normal oral and palatal mucosa present Other: atraumatic Eyes: Conjunctivae: conjunctivae normal Pupils: Equal, round and reactive pupils present Neck: N
[2020-10-30 10:01] LABS: Basophils Absolute Auto 0.05 K/mm3 (0.00-0.10); Basophils Percent Auto 0.3 % (0.0-1.0); Eosinophils Absolute Auto 0.05 K/mm3 (0.02-0.50); Eosinophils Percent Auto 0.3 % (1.0-6.0); Hematocrit 34.8 % (35.0-49.0); Hemoglobin 12.1 g/dL (12.0-15.0); Immature Granulocyte Absolute 0.09 K/mm3 (0.00-0.00); Immature Granulocyte Percent A 0.6 % (0.0-0.0); Lymphocytes Absolute Auto 0.81 K/mm3 (1.10-4.50); Mean Corpuscular HGB Conc 34.8 g/dL (32.0-36.0); Mean Corpuscular Hemoglobin 34.9 pg (27.0-31.0); Mean Corpuscular Volume 100.3 fL (78.0-102.0); Mean Platelet Volume 10.1 fl (9.2-11.8); Monocytes Percent Auto 3.7 % (2.0-11.0); Neutrophils Absolute Auto 14.5 K/mm3 (1.7-7.2); Neutrophils Percent Auto 90.1 % (50.0-70.0); Platelet Count Result 451 K/mm3 (150-420); Red Blood Count 3.47 M/mm3 (4.20-5.40); Red Cell Distribution Width 14.1 % (11.6-14.4); White Blood Count 16.1 K/mm3 (4.8-10.8)
[2020-10-30 10:15] LABS: INR 1.2; Prothrombin Time 12.2 Seconds (9.50-12.10)
[2020-10-30 10:18] LABS: D Dimer 1.36 mg/L (0.19-0.50)
[2020-10-30 10:20] LABS: Estimated CRCL calculation 33 ml/min
[2020-10-30 10:24] LABS: Albumin Level 1.8 g/dL (3.4-5.0); Alkaline Phosphatase 379 U/L (46-116); Anion Gap 16 mmol/L (8-16); Aspartate Amino Transferase 26 U/L (15-37); Bilirubin,Total 0.6 mg/dL (0.00-1.00); Blood Urea Nitrogen 6 mg/dL (7-18); Calcium 8.2 mg/dL (8.5-10.1); Carbon Dioxide 20 mmol/L (21-32); Chloride 104 mmol/L (98-108); Estimated Glomerular Filt Rate 36; Glucose 132 mg/dL (70-99); NT Pro B Type Natriuretic Pept 2628 pg/mL (0-125); Osmolality Calculated 289 mOsm/kg (285-295); Sodium 140 mmol/L (136-145); Total Protein 6.5 g/dL (6.4-8.2)
[2020-10-30 10:31] LABS: Alanine Aminotransferase 13 U/L (14-59)
[2020-10-30 10:33] LABS: Potassium 1.4 mmol/L (3.5-5.1)
[2020-10-30] MEDS: POTASSIUM CHLORIDE 20 MEQ TABLET 40 MEQ PO (11:00)
[2020-10-30] MEDS: KCL 20 MEQ/SW 100 ML 100 ML 50 MEQ IVPB (11:00)
--- NOTE | 2020-10-30 12:01 | PC.NURSE ---
[facility] transfer line contacted by [facility]. awaiting call back.
[2020-10-30] MEDS: ACETAMINOPHEN 500 MG TABLET 1000 MG PO (12:53)
--- NOTE | 2020-10-30 13:12 | PC.NURSE ---
[facility] transfer line contacted. awaiting call back
--- NOTE | 2020-10-30 14:36 | PC.NURSE ---
accepting physician dr. oliva from [facility]. nurse to nurse report provided to toan peterson at [phone].
[2020-10-30 15:00] LABS: SARS-CoV-2 Ag Negative (Negative)
== END 2020-10-30 15:54 | disposition short-term general hospital (02) ==
PROVIDERS: Emergency Provider Family Medicine; PCP Internal Medicine
DX: I63.9 Cerebral infarction, unspecified (principal); E87.6 Hypokalemia; J44.1 Chronic obstructive pulmonary disease with (acute) exacerbation; Z20.822 Contact with and (suspected) exposure to COVID-19
CPT/HCPCS: 36415; 70450; 71275; 80053; 83880; 84484; 85025; 85380; 85610; 87324; 87426; 93005; 96365; 96366; 99285; A9270; C9803; J3480; Q9967

== ENCOUNTER 2020-11-12 10:57 | Emergency (ER) | payer BC, SELFPAY ==
[2020-11-12 11:00] VITALS: BP 85/61; PULSE 112; RESP 20; TEMP 36.4; O2SAT 100
[2020-11-12] MEDS: SODIUM CHLORIDE 0.9% IV 1,000 ML 250 ML IV CONT (11:15)
--- NOTE | 2020-11-12 11:18 | ED.GENADULT ---
HPI - General Adult General Source: patient Mode of arrival: ambulatory Limitations: no limitations History of Present Illness HPI narrative: Dinah has had 2 loose stools this am and some crampy abdominal pain for the last two hours. Pain has been moderately severe, sharp, ongoing, not relieved by tylenol at home. This has been associates with nausea but no emesis this am. no modifying factors. Onset (ago): hour(s) Radiation: non-radiation Quality: stabbing Pain Consistency: constant Relieving factors: none Exacerbating factors: eating Associated symptoms: denies other symptoms Related Data Home Medications Medication Instructions Recorded Confirmed amlodipine 5 mg PO DAILY 11/12/20 11/12/20 atorvastatin 40 mg PO DAILY 11/12/20 11/12/20 duloxetine 90 mg PO DAILY 11/12/20 11/12/20 loperamide 2 mg PO Q4H PRN 11/12/20 11/12/20 magnesium oxide 400 mg PO DAILY 11/12/20 11/12/20 potassium citrate 40 meq PO TIDWM 11/12/20 11/12/20 Allergies Allergy/AdvReac Type Severity Reaction Status Date / Time citric acid Allergy Unknown throat Verified 09/16/20 13:35 edema SEASONAL Allergy Unknown ITCHING Uncoded 09/16/20 13:35 Review of Systems Constitutional: Constitutional: Reports no additional constitutional complaints Eyes: Eyes: Reports no additional eye complaints ENT: Reports system reviewed and no additional complaints, except as documented Cardiovascular: Cardiovascular: Reports no additional cardiovascular complaints Respiratory: Respiratory: Reports no additional respiratory complaints Gastrointestinal: Gastrointestinal: Reports no additional gastrointestinal complaints Genitourinary: Genitourinary: Reports no additional female genitourinary complaints Musculoskeletal: Musculoskeletal: Reports no additional musculoskeletal complaints Integumentary/Breasts: Skin/Breast: Reports system reviewed and no additional complaints, except as docu Neurologic: Reports system reviewed and no additional complaints, except as documented Psychiatric: Psychiatric: Reports no additional psychiatric complaints Endocrine: Endocrine: Reports no additional endocrine complaints Hematologic/Lymphatic: Hematologic/Lymphatic: Reports no additional hematologic/lymphatic complaints Allergic/Immunologic: Allergic/Immunologic: Reports no additional allergic/immunologic complaints [facility] Past Medical History Medical History Chronic alcoholism Chronic anemia Chronic pancreatitis Tobacco abuse Surgical History Surgical History H/O knee surgery H/O shoulder surgery H/O: hysterectomy History of throat surgery Family History Family History Mother Diabetes mellitus Family history of arthritis Family history of congestive heart failure Father Family history of Alzheimer's disease Other Family history of malignant neoplasm Social History Social History Smoking packs per day: 1 Smoking cigarettes per day: 20.0 Years smoked: 30 Smoking pack-years: 30.00 Smoking status: Current every day smoker Tobacco type: cigarettes Second hand tobacco smoke exposure: Yes Alcohol intake: current Drinks per week: 28 Substance use type: does not use Gender identity (if verbalized by the patient): Female Spiritual care concerns: No Agree to blood products: Yes Exam Const: General: no acute distress Orientation/consciousness: patient oriented x3 HENMT: Head: normal to inspection General nose exam: Normal external nose present Face and sinus: normal facial exam Mouth: Yes Normal oral and palatal mucosa present Throat: posterior oropharynx normal Eyes: Conjunctivae: conjunctivae normal Neck: Neck: normal visual inspection Chest: Chest palpation & inspection: normal inspection of the ches
[2020-11-12 11:54] LABS: Basophils Absolute Auto 0.05 K/mm3 (0.00-0.10); Basophils Percent Auto 0.5 % (0.0-1.0); Eosinophils Absolute Auto 0.27 K/mm3 (0.02-0.50); Eosinophils Percent Auto 2.5 % (1.0-6.0); Hematocrit 36.3 % (35.0-49.0); Hemoglobin 11.5 g/dL (12.0-15.0); Immature Granulocyte Absolute 0.08 K/mm3 (0.00-0.00); Immature Granulocyte Percent A 0.7 % (0.0-0.0); Immature Platelet Fraction Pct 1.7 % (1.0-7.0); Lymphocytes Absolute Auto 1.23 K/mm3 (1.10-4.50); Lymphocytes Percent Auto 11.2 % (18.0-42.0); Mean Corpuscular HGB Conc 31.7 g/dL (32.0-36.0); Mean Corpuscular Hemoglobin 32.9 pg (27.0-31.0); Mean Corpuscular Volume 103.7 fL (78.0-102.0); Mean Platelet Volume 10.4 fl (9.2-11.8); Monocytes Absolute Auto 0.49 K/mm3 (0.10-0.90); Monocytes Percent Auto 4.5 % (2.0-11.0); Neutrophils Absolute Auto 8.9 K/mm3 (1.7-7.2); Neutrophils Percent Auto 80.6 % (50.0-70.0); Platelet Count Result 585 K/mm3 (150-420); Red Cell Distribution Width 13.9 % (11.6-14.4)
[2020-11-12 12:00] VITALS: BP 114/90; PULSE 108
[2020-11-12] MEDS: DICYCLOMINE HCL 10 MG CAPSULE 20 MG PO (12:02)
[2020-11-12] MEDS: LOPERAMIDE HCL 2 MG CAPSULE PO (12:02)
[2020-11-12 12:09] LABS: Alanine Aminotransferase 15 U/L (14-59); Albumin Level 1.9 g/dL (3.4-5.0); Alkaline Phosphatase 389 U/L (46-116); Anion Gap 14 mmol/L (8-16); Aspartate Amino Transferase 30 U/L (15-37); Bilirubin,Total 0.3 mg/dL (0.00-1.00); Blood Urea Nitrogen 7 mg/dL (7-18); Calcium 8.3 mg/dL (8.5-10.1); Carbon Dioxide 23 mmol/L (21-32); Chloride 100 mmol/L (98-108); Estimated CRCL calculation 22 ml/min; Estimated Glomerular Filt Rate 28; Glucose 100 mg/dL (70-99); Osmolality Calculated 282 mOsm/kg (285-295); Potassium 3.7 mmol/L (3.5-5.1); Sodium 137 mmol/L (136-145); Total Protein 6.7 g/dL (6.4-8.2)
[2020-11-12 12:16] LABS: Lactic Acid Reflex 4.7 mmol/L (0.4-2.0)
--- NOTE | 2020-11-12 12:28 | PC.NURSE ---
Pt requesting to go home, edp aware.
[2020-11-12 12:39] VITALS: BP 78/64; PULSE 110
[2020-11-12 13:14] VITALS: BP 78/60; PULSE 113
--- NOTE | 2020-11-12 13:29 | PC.NURSE ---
Pt ambulatory to nurses station from room 3 requesting to speak with erp.
[2020-11-12 14:48] LABS: Reflex Lactic Acid Yes or No Add Lactic
== END 2020-11-12 13:45 | disposition home or self-care (01) ==
LOC: CHSED 10:59
PROVIDERS: Emergency Provider Emergency Medicine; PCP Internal Medicine
DX: R19.7 Diarrhea, unspecified (principal)
CPT/HCPCS: 36415; 80053; 83605; 85025; 85055; 96360; 96361; 99282; 99283; A9270; J7030

== ENCOUNTER 2020-11-21 10:11 | Outpatient (CLI) | payer BC, SELFPAY ==
[2020-11-21 10:22] LABS: Basophils Absolute Auto 0.06 K/mm3 (0.00-0.10); Basophils Percent Auto 0.8 % (0.0-1.0); Eosinophils Percent Auto 4.1 % (1.0-6.0); Hemoglobin 10.3 g/dL (12.0-15.0); Immature Granulocyte Absolute 0.05 K/mm3 (0.00-0.00); Immature Granulocyte Percent A 0.7 % (0.0-0.0); Lymphocytes Absolute Auto 1.45 K/mm3 (1.10-4.50); Lymphocytes Percent Auto 20.1 % (18.0-42.0); Mean Corpuscular HGB Conc 31.2 g/dL (32.0-36.0); Mean Corpuscular Hemoglobin 32.8 pg (27.0-31.0); Mean Corpuscular Volume 105.1 fL (78.0-102.0); Mean Platelet Volume 9.6 fl (9.2-11.8); Monocytes Absolute Auto 0.46 K/mm3 (0.10-0.90); Monocytes Percent Auto 6.4 % (2.0-11.0); Neutrophils Absolute Auto 4.9 K/mm3 (1.7-7.2); Neutrophils Percent Auto 67.9 % (50.0-70.0); Platelet Count Result 439 K/mm3 (150-420); Red Blood Count 3.14 M/mm3 (4.20-5.40); Red Cell Distribution Width 13.4 % (11.6-14.4); White Blood Count 7.2 K/mm3 (4.8-10.8)
[2020-11-21 10:43] LABS: Alanine Aminotransferase 19 U/L (14-59); Alkaline Phosphatase 292 U/L (46-116); Anion Gap 4 mmol/L (8-16); Aspartate Amino Transferase 41 U/L (15-37); Bilirubin,Total 0.2 mg/dL (0.00-1.00); Carbon Dioxide 31 mmol/L (21-32); Chloride 106 mmol/L (98-108); Phosphorus 4.6 mg/dL (2.6-4.7); Potassium 4.2 mmol/L (3.5-5.1); Sodium 141 mmol/L (136-145); Total Protein 6.1 g/dL (6.4-8.2)
[2020-11-21 10:53] LABS: Albumin Level 1.7 g/dL (3.4-5.0); Blood Urea Nitrogen 7 mg/dL (7-18); Calcium 8.7 mg/dL (8.5-10.1); Estimated Glomerular Filt Rate 46; Glucose 98 mg/dL (70-99); Osmolality Calculated 290 mOsm/kg (285-295)
[2020-11-21 10:54] LABS: Ammonia < 10 umol/L (11-32)
== END 2020-11-21 10:12 | disposition home or self-care (01) ==
LOC: CHSLAB 10:13
PROVIDERS: PCP Internal Medicine; Visit Provider Internal Medicine
DX: E86.0 Dehydration (principal); K70.9 Alcoholic liver disease, unspecified
CPT/HCPCS: 36415; 80053; 82140; 83735; 84100; 85025

== ENCOUNTER 2021-01-22 10:01 | Outpatient (CLI) | payer BC, SELFPAY ==
--- NOTE | ~2021-01-22 | NM_ITS ---
EXAMINATION: NM hawa stress w perfusion DATE: 01/22/2021 12:24 CDT INDICATION: Dyspnea TECHNIQUE: Rest images were obtained following intravenous administration of 8.7 mCi Tc99m tetrofosmi n (Myoview). The patient was infused intravenously with Lexiscan (regadenoson). Then, 28.4 mCi Tc99m tetrofosmin (Myoview) was administered intravenously, and stress images were obtained. Data was recon structed into short axis and horizontal and vertical long axis SPECT images. Gated SPECT images were also obtained. COMPARISON: None. FINDINGS: There is no definite reversible or fixed perfusion abnormality to suggest ischemia or infar ction. There is no segmental wall motion abnormality. Left ventricular ejection fraction measures 7 3%. IMPRESSION: 1. No definite ischemia or infarct. 2. Normal left ventricular ejection fraction measuring 73%. Reviewed, dictated and finalized at location A.
--- NOTE | 2021-01-22 11:14 | EST_ITS ---
Patient Info Name: Dinah Batres Age: 50 years : 1970 Gender: Female Ht: 64 in Wt: 111 lbs BSA: 1.50 m2 Exam Date: 01/22/2021 11:19 AM Exam Location: [facility] Stress Patient Status: Outpatient Admit Date: 01/22/2021 Staff Ordering Physician: Wilfredo Covington DO Attending Provider: Wilfredo Covington DO Exercise Technologist: Marcus Cervantes RDCS, RT Exercise Physician: Wilfredo Covington DO Exam Type: CA stress hawa w NM Study Info A regadenoson stress test was performed. Summary 1. 1. Negative lexiscan stress test for ischemic ST changes by ECG criteria. 2. 2. Stable hemodynamics throughout the test. 3. 3. Nuclear scan to follow and will be reported separately. Please correlate with it. 4. 4. Patient informed of the above results. Protocol: Lexiscan Stress ECG Details Stage: REST Duration (min): 2 min : 51 sec HR (bpm): 75 SBP (mmHg): 168 DBP (mmHg): 96 Stage: REST Duration (min): 7 min : 59 sec HR (bpm): 72 SBP (mmHg): 168 DBP (mmHg): 96 Stage: REST Duration (min): 11 min : 26 sec HR (bpm): 65 SBP (mmHg): 168 DBP (mmHg): 96 Stage: STAGE 1 Duration (min): 1 min : 0 sec HR (bpm): 103 SBP (mmHg): 164 DBP (mmHg): 77 Stage: RECOVERY Duration (min): 1 min : 0 sec HR (bpm): 110 SBP (mmHg): 164 DBP (mmHg): 77 Stage: RECOVERY Duration (min): 2 min : 0 sec HR (bpm): 109 SBP (mmHg): 164 DBP (mmHg): 77 Stage: RECOVERY Duration (min): 3 min : 0 sec HR (bpm): 105 SBP (mmHg): 145 DBP (mmHg): 89 Stage: RECOVERY Duration (min): 3 min : 35 sec HR (bpm): 101 SBP (mmHg): 145 DBP (mmHg): 89 Rest HR: 65 bpm Peak HR: 111 bpm Rest Sys BP: 168 mmHg Peak Sys BP: 164 mmHg Max Pred HR: 168 bpm % Max Pred HR: 66 % Target HR: 143 bpm Max RPP: 18,204 bpm*mmHg Termination Reason: Completed protocol Cardiac Symptoms: Shortness of breath Total Time: 1 min : 0 sec Rest Grier BP: 96 mmHg Peak Grier BP: 77 mmHg Total Dose: 0.4 mg Resting ECG Sinus rhythm. Stress ECG No ST changes. Arrhythmias None. Report Signatures
== END 2021-01-22 10:02 | disposition home or self-care (01) ==
PROVIDERS: PCP Internal Medicine; Visit Provider Internal Medicine Cardiovascular Disease
DX: R06.00 Dyspnea, unspecified (principal)
CPT/HCPCS: 78452; 93017; A9502; J0280; J2785

== ENCOUNTER 2021-01-29 09:16 | Outpatient (CLI) | payer BC, SELFPAY ==
--- NOTE | ~2021-01-29 | DEXA_ITS ---
Bone Density Report Name: Dinah Batres Age: 50 Sex: Female Ethnicity: Date of : 1970 Indication: osteopenia; height loss; hysterectomy; rheumatoid arthritis; Referring Provider: Jing, Jocelyn Rene Study: Bone densitometry was performed. Exam Date: January 29, 2021 Accession number: [id number] Bone Density: Region BMD T-score Z-score Classification AP Spine(L1-L4) 1.000 -0.4 0.5 Normal Femoral Neck (Left) 0.632 -2.0 -1.2 Osteopenia Total Hip (Left) 0.751 -1.6 -1.0 Osteopenia Femoral Neck (Right) 0.605 -2.2 -1.4 Osteopenia Total Hip (Right) 0.743 -1.6 -1.1 Osteopenia Femoral Neck Mean 0.619 -2.1 -1.3 Osteopenia Total Hip Mean 0.747 -1.6 -1.0 Osteopenia World Health Organization criteria for BMD impression classify patients as: Normal (T-score at or above -1.0), Osteopenia (T-score between -1.0 and -2.5), or Osteoporosis (T-score at or below -2.5). 10-year Fracture Risk(1): Major Osteoporotic Fracture 4.7% Hip Fracture 1.3% Reported Risk Factors: [place] (), Neck BMD=0.605, BMI=20.4, smoking, rheumatoid arthritis (1) FRAX(R) Version 3.08. Fracture probability calculated for an untreated patient. Fracture probability may be lower if the patient has received treatment. Previous Exams: Region Exam Age BMD T-score BMD Change BMD Change Date g/cm2 vs Baseline vs Previous AP Spine (L1-L4) 01/29/2021 50 1.000 -0.4 -0.136 (-12.0% -0.153 (-13.2% 11/02/2018 48 1.152 1.0 0.017 (1.5%) 0.017 (1.5%) 05/07/2017 46 1.135 0.8 Total Hip(Left) 01/29/2021 50 0.751 -1.6 -0.148 (-16.5% -0.167 (-18.2% 11/02/2018 48 0.918 -0.2 0.018 (2.1%) 0.018 (2.1%) 05/07/2017 46 0.899 -0.3 Total Hip(Right) 01/29/2021 50 0.743 -1.6 -0.032 (-4.2%) -0.032 (-4.2%) 11/02/2018 48 0.775 -1.4 *Denotes significance at 95% confidence level, LSC for AP Spine = 0.022 g/cm2, LSC for Total Hip = 0.027 g/cm2 # Denotes dissimilar scan types or analysis methods Clinical Information Provided by Patient: Smokes Has rheumatoid arthritis Has used the following medications: Vitamin D Has the following medical conditions: Hysterectomy Patient maximum height was 64 No regular weight bearing exercise Drinks caffeinated beverages Onset of menses at age 10 Number of children 3 Impression: The patient has low bone mass, based on the Right Femoral Neck T-score. The patient has risk fac
--- NOTE | ~2021-01-29 | MM_ITS ---
EXAMINATION: MM screening kareem BI w mary ann HISTORY: Screening TECHNIQUE: Craniocaudal and mediolateral oblique 3-D tomosynthesis images were obtained and synthetic 2-D images were generated. CAD analysis was submitted and interpreted. COMPARISON: Comparison to multiple prior studies sequentially, with oldest reviewed study dated 07/2013. BREAST PARENCHYMAL COMPOSITION: The breasts are heterogenously dense, which may obscure small masses. FINDINGS: There is no evidence of suspicious mass, calcification, or architectural distortion to sugg est malignancy in either breast. There has been no suspicious interval change. IMPRESSION: 1. No mammographic evidence of malignancy. 2. Recommend routine screening mammography in one year. BI-RADS Category 1: Negative Reviewed, dictated and finalized at location A.
== END 2021-01-29 09:17 | disposition home or self-care (01) ==
LOC: CHSIMG 09:17
PROVIDERS: PCP Internal Medicine; Visit Provider Nurse Practitioner Family
DX: Z12.31 Encounter for screening mammogram for malignant neoplasm of breast (principal); Z78.0 Asymptomatic menopausal state
CPT/HCPCS: 77063; 77067; 77080

== ENCOUNTER 2021-02-14 09:42 | Outpatient (CLI) | payer BC, SELFPAY ==
[2021-02-14 10:24] LABS: Alanine Aminotransferase 101 U/L (14-59); Albumin Level 3.7 g/dL (3.4-5.0); Alkaline Phosphatase 222 U/L (46-116); Anion Gap 14 mmol/L (8-16); Aspartate Amino Transferase 59 U/L (15-37); Bilirubin,Total 0.2 mg/dL (0.00-1.00); Blood Urea Nitrogen 16 mg/dL (7-18); Calcium 9.4 mg/dL (8.5-10.1); Carbon Dioxide 23 mmol/L (21-32); Chloride 107 mmol/L (98-108); Cholesterol 150 mg/dL (0-200); Estimated Glomerular Filt Rate 48; Glucose 97 mg/dL (70-99); HDL Direct 80 mg/dL (40-60); LDL Cholesterol Calculated 41 mg/dL (<130); Osmolality Calculated 299 mOsm/kg (285-295); Potassium 4.4 mmol/L (3.5-5.1); Sodium 144 mmol/L (136-145); Total Protein 7.5 g/dL (6.4-8.2); Triglycerides 144 mg/dL (0-150)
== END 2021-02-14 09:43 | disposition home or self-care (01) ==
LOC: CHSLAB 09:44
PROVIDERS: PCP Internal Medicine; Visit Provider Internal Medicine Cardiovascular Disease
DX: E78.5 Hyperlipidemia, unspecified (principal)
CPT/HCPCS: 36415; 80053; 80061

== ENCOUNTER 2021-05-05 12:29 | Outpatient (CLI) | payer BC, SELFPAY ==
--- NOTE | ~2021-05-05 | XR_ITS ---
EXAMINATION: XR knee RT min 4V DATE: 05/05/2021 12:59 INDICATION: Right knee pain TECHNIQUE: Four views of the right knee were obtained. COMPARISON: None. FINDINGS: Alignment is normal. No fracture or osteochondral lesion. There is mild tricompartmental os teoarthritis characterized by tiny marginal osteophytes. No joint effusion/synovitis. There is soft tissue swelling of the knee. IMPRESSION: 1. Soft tissue swelling of the knee which could relate to recent drainage. Reviewed, dictated and finalized at location B. [facility] SPECIALIST
== END 2021-05-05 12:30 | disposition home or self-care (01) ==
LOC: CHSIMG 12:31
PROVIDERS: PCP Internal Medicine; Visit Provider Internal Medicine
DX: M25.561 Pain in right knee (principal)
CPT/HCPCS: 73564

== ENCOUNTER 2021-10-07 07:04 | Outpatient (CLI) | payer OTHER, SELFPAY ==
[2021-10-07 08:09] LABS: Alanine Aminotransferase 33 U/L (14-59); Albumin Level 3.8 g/dL (3.4-5.0); Alkaline Phosphatase 168 U/L (46-116); Anion Gap 8 mmol/L (8-16); Aspartate Amino Transferase 29 U/L (15-37); Bilirubin,Total 0.2 mg/dL (0.00-1.00); Blood Urea Nitrogen 14 mg/dL (7-18); Calcium 9.6 mg/dL (8.5-10.1); Carbon Dioxide 28 mmol/L (21-32); Chloride 105 mmol/L (98-108); Cholesterol 183 mg/dL (0-200); Estimated Glomerular Filt Rate > 60; Glucose 97 mg/dL (70-99); HDL Direct 52 mg/dL (40-60); LDL Cholesterol Calculated 74 mg/dL (<130); Osmolality Calculated 292 mOsm/kg (285-295); Potassium 4.6 mmol/L (3.5-5.1); Sodium 141 mmol/L (136-145); Total Protein 7.5 g/dL (6.4-8.2); Triglycerides 283 mg/dL (0-150)
== END 2021-10-07 07:05 | disposition home or self-care (01) ==
LOC: CHSLAB 07:08
PROVIDERS: PCP Internal Medicine; Visit Provider Internal Medicine Cardiovascular Disease
DX: E78.5 Hyperlipidemia, unspecified (principal)
CPT/HCPCS: 36415; 80053; 80061

== ENCOUNTER 2022-01-02 16:44 | Emergency (ER) | payer OTHER, MEDICAID, SELFPAY ==
--- NOTE | ~2022-01-02 | XR_ITS ---
XR tibia fibula LT 2V DATE: 01/02/2022 17:27 INDICATION: Tripped over stent. Deformity. TECHNIQUE: AP and crosstable lateral views of tibia and fibula COMPARISON: 01/12/2022 left ankle FINDINGS: There is diffuse osteopenia. Normal alignment at the knee joint. The ankle mortise is intact. There are comminuted distal tibial and fibular diametaphyseal fractures IMPRESSION: Comminuted distal fibular and tibial diametaphyseal fractures with mild displacement and angulation as delineated in the left ankle radiographic report Reviewed, dictated and finalized at location A. IMPRESSION: Comminuted distal fibular and tibial diametaphyseal fractures with mild displacement and angulation as delineated in the left ankle radiographic r eport
--- NOTE | ~2022-01-02 | XR_ITS ---
XR ankle LT 2V DATE: 01/02/2022 17:27 INDICATION: Tripped over step. Deformity. TECHNIQUE: Portable AP and crosstable lateral views COMPARISON: 01/02/2022 left tibia fibula FINDINGS: There are comminuted distal tibial and fibular diametaphyseal fractures. There is approximately 3 mm posterior and 2.5 mm lateral displacement at the distal tibial fracture. There is approximately 18 degrees apex medial and 18 degrees anterior angulation at the tibial fractu re site. There is up to 6 mm medial and 2 mm dorsal displacement at the distal fibular fracture with approxima tely 16 degrees apex medial and 20 degrees apex anterior angulation at the fibular fracture. The ankle mortise appears intact. There is osteopenia. Mild posterior calcaneal enthesopathy. IMPRESSION: Comminuted distal tibial and fibular diametaphyseal fractures Reviewed, dictated and finalized at location A.
[2022-01-02 16:37] VITALS: BP 154/94; PULSE 112; RESP 31; TEMP 36.9; O2SAT 96
[2022-01-02] MEDS: HYDROmorphone HCL INJ (*CRX) 1 MG/ML SYR IV PUSH ×2 (17:25→19:38)
--- NOTE | 2022-01-02 17:31 | ED.LOWEXIN ---
HPI - Extremity Injury (Lower) General Chief Complaint: Extremity Injury, Lower Stated Complaint: L ankle injury s/p fall Time Seen by Provider: 01/02/22 16:56 History of Present Illness HPI Narrative: Patient is a 51-year-old female who presents ER with pain to left lower extremity. Patient was walking her dog down some steps when it pulled and she fell down 3 steps. Unsure how she struck her leg but has deformity and cannot walk. She had to crawl around her home to find help. She not strike her head or lose consciousness. No numbness or tingling in her lower extremity. Pulses intact. No additional complaints. Related Data Home Medications Medication Instructions Recorded Confirmed duloxetine 30 mg capsule,delayed 90 mg PO DAILY 11/12/20 10/06/21 release aspirin 81 mg tablet,delayed 81 mg PO DAILY 03/24/21 10/06/21 release (Adult Low Dose Aspirin) Allergies Allergy/AdvReac Type Severity Reaction Status Date / Time citric acid Allergy Unknown throat Verified 01/02/22 17:10 edema SEASONAL Allergy Unknown ITCHING Uncoded 10/06/21 13:07 Review of Systems Review of Systems: All systems reviewed & are unremarkable except as noted in HPI and below Cardiovascular: Cardiovascular: Denies chest pain, Denies rapid heart rate and Denies radiating jaw, neck or arm pain Respiratory: Respiratory: Denies cough and Denies dyspnea Gastrointestinal: Gastrointestinal: Denies abdominal pain, Denies nausea and Denies vomiting Musculoskeletal: Musculoskeletal: Denies back pain and Denies myalgias Comments: Left lower extremity deformity and pain Integumentary/Breasts: Skin/Breast: Denies rash and Denies skin ulcer Neurologic: Denies syncope, Denies headache(s), Denies focal weakness and Denies numbness PMFSH Past Medical History Medical History Chronic alcoholism Chronic anemia Chronic pancreatitis Tobacco abuse Surgical History Surgical History H/O knee surgery H/O shoulder surgery H/O: hysterectomy History of throat surgery Family History Family History Mother Diabetes mellitus Family history of arthritis Family history of congestive heart failure Father Family history of Alzheimer's disease Other Family history of malignant neoplasm Social History Social History Smoking packs per day: 1 Smoking cigarettes per day: 20.0 Years smoked: 30 Smoking pack-years: 30.00 Smoking status: Current every day smoker Tobacco type: cigarettes Second hand tobacco smoke exposure: Yes Alcohol intake: current Drinks per week: 28 Substance use type: does not use Gender identity (if verbalized by the patient): Female Spiritual care concerns: No Agree to blood products: Yes Exam Narrative: GENERAL: Well-appearing, well-nourished, and in no acute distress. HEAD: Normocephalic, atraumatic. EYES: PERRL and EOMI. NECK: Supple. No midline tenderness of C-spine. Full range of motion that is painless. CHEST: Clear to auscultation. No respiratory distress. HEART: Regular rate and rhythm. Normal peripheral pulses. ABDOMEN: Soft, nontender, nondistended. EXTREMITIES: Deformity left lower extremity just above the ankle. Dorsalis pedis pulse and posterior tibial pulses intact. Tenderness at area of deformity. Normal right lower extremity. SKIN: Warm, dry, abrasions to both feet. NEURO: No focal deficits. Alert and oriented x3. PSYCH: Normal mood and affect. Course Course Emergency Course: Orthopedic surgery at this hospital feels patient should be seen at a tertiary care center given the complexity of the fracture. Patient prefers to go to [facility]. She has been accepted by Dr. Zepeda with orthopedic surgery and will be transferred to the ER. Juani
[2022-01-02 18:44] VITALS: PULSE 99; RESP 16; O2SAT 100
--- NOTE | 2022-01-02 18:45 | PC.NURSE ---
Beatriz Ems accepted transfer to [facility] ETA [id number]
--- NOTE | 2022-01-02 18:46 | PC.NURSE ---
report given to beth at [facility]. [facility] contacted and will be for transport approx 45 mins. patient aware and consent for transfer obtained
[2022-01-02 19:19] VITALS: BP 154/97; PULSE 101; RESP 16; O2SAT 100
== END 2022-01-02 19:44 | disposition short-term general hospital (02) ==
PROVIDERS: Emergency Provider Emergency Medicine; PCP Internal Medicine
DX: S82.832A Other fracture of upper and lower end of left fibula, initial encounter for closed fracture (principal); S82.872A Displaced pilon fracture of left tibia, initial encounter for closed fracture; F10.20 Alcohol dependence, uncomplicated; D64.9 Anemia, unspecified; K86.1 Other chronic pancreatitis; F17.210 Nicotine dependence, cigarettes, uncomplicated; Y93.K1 Activity, walking an animal; W10.9XXA Fall (on) (from) unspecified stairs and steps, initial encounter
CPT/HCPCS: 29515; 73590; 73600; 96374; 96376; 99285; J1170

== ENCOUNTER 2022-05-28 15:04 | Outpatient (CLI) | payer MEDICAID, SELFPAY ==
--- NOTE | ~2022-05-28 | XR_ITS ---
XR ankle LT min 3V DATE: 05/28/2022 15:39 INDICATION: Fracture follow-up TECHNIQUE: 4 views COMPARISON: None FINDINGS: There are 2 plates and screws along the distal tibia and a plate was through screws along t he distal fibula, providing fixation for previously demonstrated comminuted fractures of the distal t ibial and fibular diametaphyses. There is bony bridging across the fracture sites. The ankle mortise appears intact. There is osteopenia. IMPRESSION: Status post ORIF distal tibial and fibular comminuted diametaphyseal fractures Reviewed, dictated and finalized at location B. PEELING MACHINE OPERATOR IMPRESSION: Status post ORIF distal tibial and fibular comminuted diametaphysea l fractures
== END 2022-05-28 15:05 | disposition home or self-care (01) ==
PROVIDERS: PCP Internal Medicine
DX: S82.872A Displaced pilon fracture of left tibia, initial encounter for closed fracture (principal)
CPT/HCPCS: 73610

== ENCOUNTER 2022-06-05 11:56 | Outpatient (CLI) | payer MEDICAID, SELFPAY ==
[2022-06-05 13:34] LABS: Influenza A QL RT-PCR Negative (Negative); Influenza B QL RT-PCR Negative (Negative); SARS-CoV-2 RNA PCR Positive (Negative)
== END 2022-06-05 11:57 | disposition home or self-care (01) ==
LOC: CHSLAB 11:58
PROVIDERS: PCP Internal Medicine; Visit Provider Internal Medicine
DX: U07.1 COVID-19 (principal); R05.9 Cough, unspecified; R50.9 Fever, unspecified
CPT/HCPCS: 87636

== ENCOUNTER 2022-06-23 13:24 | Outpatient (CLI) | payer MEDICAID, SELFPAY ==
--- NOTE | ~2022-06-23 | MM_ITS ---
EXAMINATION: MM screening kareem BI w mary ann HISTORY: Screening mammogram TECHNIQUE: Craniocaudal and mediolateral oblique 3-D tomosynthesis images were obtained and synthetic 2-D images were generated. CAD analysis was submitted and interpreted. COMPARISON: 01/2021, 06/07/2017, 04/16/2016 bilateral screening mammogram examinations BREAST PARENCHYMAL COMPOSITION: There are scattered areas of fibroglandular density. FINDINGS: There is no evidence of suspicious mass, calcification, or architectural distortion to sugg est malignancy in either breast. There has been no suspicious interval change. IMPRESSION: 1. No mammographic evidence of malignancy. 2. Recommend routine screening mammography in one year. BI-RADS Category 1: Negative Reviewed, dictated and finalized at location A. GER OF INTERNAL
== END 2022-06-23 13:25 | disposition home or self-care (01) ==
LOC: CHSIMG 13:26
PROVIDERS: PCP Internal Medicine; Visit Provider Internal Medicine
DX: Z12.31 Encounter for screening mammogram for malignant neoplasm of breast (principal)
CPT/HCPCS: 77063; 77067

== ENCOUNTER 2022-06-30 14:32 | Emergency (ER) | payer OTHER, SELFPAY ==
[2022-06-30 14:36] VITALS: BP 124/83; PULSE 100; RESP 18; TEMP 36.7; O2SAT 100
--- NOTE | 2022-06-30 14:49 | ED.NAVMDI ---
HPI - Nausea/Vomiting/Diarrhea General Chief complaint: Nausea/Vomiting/Diarrhea Stated complaint: diarrhea, short of breath, dehydrated Time Seen by Provider: 06/30/22 14:40 Source: patient and RN notes reviewed Mode of arrival: ambulatory Limitations: no limitations History of Present Illness HPI Narrative: patient states that she had some diarrhea 3 days ago took some Imodium and it stopped and this morning the diarrhea began again and she took some more Imodium and it has helped. She is feeling weak she mentioned to the triage desk that she felt short of breath but did not describe any shortness of breath to the nurse or myself. She feels like she might be dehydrated. MD elicited complaint: diarrhea Pertinent past history: alcohol abuse and pacreatitis Onset (ago): day(s) (3) Description of diarrhea: watery Associated nausea: No Associated abdominal pain: Yes ( a little ) Location of pain: RUQ Pain consistency: now resolved Severity: mild Quality: aching Exacerbating factors: eating Relieving factors: other ( Imodium helped stop the diarrhea) Associated symptoms: fever/chills ( max temperature to 100.6) Treatment prior to arrival: immodium Related Data Home Medications Medication Instructions Recorded Confirmed duloxetine 30 mg capsule,delayed 90 mg PO DAILY 11/12/20 06/30/22 release aspirin 81 mg tablet,delayed 81 mg PO DAILY 03/24/21 06/30/22 release (Adult Low Dose Aspirin) omega 1-zci-qtd-fish oil 1,000 mg 1 cap PO DAILY 04/06/22 06/30/22 (120 mg-180 mg) capsule (Fish Oil) gabapentin 300 mg capsule 600 mg PO TID 06/30/22 06/30/22 Allergies Allergy/AdvReac Type Severity Reaction Status Date / Time citric acid Allergy Unknown throat Verified 06/30/22 14:56 edema SEASONAL Allergy Unknown ITCHING Uncoded 06/30/22 14:56 Review of Systems Review of Systems: All systems reviewed & are unremarkable except as noted in HPI and below PMFSH Past Medical History Medical History Acute pancreatitis (~09/01/19) Chronic alcoholism Chronic anemia Chronic pancreatitis Dyslipidemia Tobacco abuse Surgical History Surgical History H/O knee surgery H/O shoulder surgery H/O: hysterectomy History of throat surgery Family History Family History Mother Diabetes mellitus Family history of arthritis Family history of congestive heart failure Father Family history of Alzheimer's disease Other Family history of malignant neoplasm Social History Social History Smoking packs per day: 1 Smoking cigarettes per day: 20.0 Years smoked: 30 Smoking pack-years: 30.00 Smoking status: Current every day smoker Tobacco type: cigarettes Second hand tobacco smoke exposure: Yes Alcohol intake: current Drinks per week: 28 Substance use type: does not use Gender identity (if verbalized by the patient): Female Spiritual care concerns: No Agree to blood products: Yes Exam Const: General: healthy appearing, no acute distress and alert Nutritional Appearance: well nourished Orientation/consciousness: patient oriented x3 Limitations: no limitations Other: Female nurse in room during examination. HENMT: Head: normal to inspection Ears: external ears normal Mouth: Yes Abnormal oral and palatal mucosa present white patches and Yes tongue abnormal with white coating Eyes: Conjunctivae: conjunctivae normal Cornea: corneas normal Pupils: Equal, round and reactive pupils present EOM: EOMs intact bilaterally Neck: Neck: normal visual inspection Resp: Effort & Inspection: normal respiratory effort Auscultation: clear to auscultation bilaterally Cardio: Rate: regular rate Rhythm: regular rhythm GI: GI Palp: Yes Soft to palpation and No Tenderness to palpation present (
--- NOTE | 2022-06-30 15:15 | PC.NURSE ---
MOUTH IS BRIGHT RED WITH YELLOWISH-WHITE PATCHES NOTED. PT REPORTS ONSET OF THIS AM.
[2022-06-30 15:37] LABS: Add Urine Microscopic? YES; Appearance Urine Clear (Clear); Bilirubin Urine Negative (Negative); Blood Urine Trace-Intact (Negative); Color Urine Light Yellow (Yellow); Glucose Urine UA Negative (Negative); Ketones Urine Negative (Negative); Leukocyte Esterase Ur 1+ LEU/UL (Negative); Nitrate Urine Positive (Negative); Protein Urine 1+ (Negative); Urobilinogen Urine 0.2 mg/dL (0.2-1.0); pH Urine 5.5 (5.0-8.0)
[2022-06-30 15:38] LABS: Basophils Absolute Auto 0.04 K/mm3 (0.00-0.10); Basophils Percent Auto 0.2 % (0.0-1.0); Eosinophils Absolute Auto 0.31 K/mm3 (0.02-0.50); Eosinophils Percent Auto 1.8 % (1.0-6.0); Hematocrit 31.2 % (35.0-49.0); Hemoglobin 10.2 g/dL (12.0-15.0); Immature Granulocyte Absolute 0.09 K/mm3 (0.00-0.00); Immature Granulocyte Percent A 0.5 % (0.0-0.0); Immature Platelet Fraction Pct 1.4 % (1.0-7.0); Lymphocytes Absolute Auto 1.91 K/mm3 (1.10-4.50); Lymphocytes Percent Auto 11.3 % (18.0-42.0); Mean Corpuscular HGB Conc 32.7 g/dL (32.0-36.0); Mean Corpuscular Hemoglobin 33.6 pg (27.0-31.0); Mean Corpuscular Volume 102.6 fL (78.0-102.0); Mean Platelet Volume 9.2 fl (9.2-11.8); Monocytes Absolute Auto 1.61 K/mm3 (0.10-0.90); Monocytes Percent Auto 9.5 % (2.0-11.0); Neutrophils Absolute Auto 12.9 K/mm3 (1.7-7.2); Neutrophils Percent Auto 76.7 % (50.0-70.0); Platelet Count Result 581 K/mm3 (150-420); Red Blood Count 3.04 M/mm3 (4.20-5.40); Red Cell Distribution Width 17.2 % (11.6-14.4); White Blood Count 16.9 K/mm3 (4.8-10.8)
--- NOTE | 2022-06-30 15:47 | PC.NURSE ---
PT WAS UP TO RR WITHOUT DIFFICULTY, AWAITING RESULTS. UPDATED REQUESTED AND SENT HOME. NAD NOTED. WILL CONTINUE TO MONITOR.
--- NOTE | 2022-06-30 16:09 | PC.NURSE ---
PT IS LYING ON STRETCHER IN EXAM ROOM AWAITING RESULTS AT THIS TIME. NAD NOTED. WILL CONTINUE TO MONITOR.
[2022-06-30 16:34] LABS: RBC Urine 0-2 /hpf (0-2); Squamous Epithelial Cell Urine Few /hpf (Few)
[2022-06-30 16:35] LABS: Alanine Aminotransferase 46 U/L (14-59); Albumin Level 2.5 g/dL (3.4-5.0); Alkaline Phosphatase 350 U/L (46-116); Amylase 29 U/L (25-115); Anion Gap 12 mmol/L (8-16); Aspartate Amino Transferase 31 U/L (15-37); Bacteria Urine Trace /hpf; Bilirubin,Total 0.3 mg/dL (0.00-1.00); Blood Urea Nitrogen 15 mg/dL (7-18); Calcium 9.1 mg/dL (8.5-10.1); Carbon Dioxide 21 mmol/L (21-32); Chloride 100 mmol/L (98-108); Estimated CRCL calculation 51 ml/min; Estimated Glomerular Filt Rate > 60; Glucose 94 mg/dL (70-99); Lipase 12 U/L (16-77); Osmolality Calculated 276 mOsm/kg (285-295); Potassium 3.1 mmol/L (3.5-5.1); Sodium 133 mmol/L (136-145); Total Protein 8.1 g/dL (6.4-8.2)
[2022-06-30 16:37] LABS: CRP < 0.5 mg/dL (0.0-0.9); Magnesium 1.6 mg/dL (1.8-2.4)
[2022-06-30 17:08] VITALS: BP 122/78; PULSE 88; RESP 16; TEMP 36.7; O2SAT 98
--- NOTE | 2022-06-30 17:08 | PC.NURSE ---
PT AMBULATORY THROUGHOUT ER WITHOUT DIFFICULTY. PT IS AWAITING TRANSPORT HOME AND DC PAPERWORK. NAD NOTED. WILL CONTINUE TO MONITOR.
--- NOTE | 2022-07-03 16:13 | PC.NURSE ---
FINAL URINE CULTURE RESULTS: GREATER THAN 100,000 CFU/ML OF E COLI. PT WAS GIVEN RX OF KEFLEX, NO FURTHER TREATMENT NEEDED PER DR LUGO.
== END 2022-06-30 17:08 | disposition home or self-care (01) ==
PROVIDERS: Emergency Provider Emergency Medicine; PCP Internal Medicine
DX: N30.00 Acute cystitis without hematuria (principal); E87.6 Hypokalemia; E83.42 Hypomagnesemia; B37.0 Candidal stomatitis; Z79.82 Long term (current) use of aspirin; F17.210 Nicotine dependence, cigarettes, uncomplicated
CPT/HCPCS: 36415; 80053; 81001; 82150; 83690; 83735; 85025; 85055; 86140; 87077; 87086; 87088; 87186; 99283

== ENCOUNTER 2022-08-21 07:08 | Outpatient (CLI) | payer OTHER, SELFPAY ==
--- NOTE | ~2022-08-21 | CT_ITS ---
EXAMINATION: CT lung screening DATE: 08/21/2022 07:36 INDICATION: PERSONAL HX OF NICOTINE DEPENDENCE TECHNIQUE: Computed tomography (CT) of the chest was performed without intravenous contrast. Addition al 3D reconstructions utilizing coronal maximum intensity projection (MIP) were performed. Automated exposure control and iterative reconstruction technique were employed. The dose-length product was 58 .60 mGy-cm. COMPARISON: Chest CT dated 10/30/2020 FINDINGS: Mild emphysema with minimal biapical pleural-parenchymal scarring. Small calcified nodule in the ling sarahi consistent with old granulomatous disease. No significant change in multiple scattered bilateral <4 mm noncalcified nodules. No pneumonia, pulmonary edema or pleural effusion. Heart size is normal. Small pericardial effusion. Atherosclerotic coronary artery calcification. Thoracic aorta is normal i n caliber. Small sliding-type hiatal hernia. No pathologically enlarged thoracic lymphadenopathy. 4 m m stone at the upper pole of the right kidney. Mild thoracic spondylosis. Bone island at T10. IMPRESSION: 1. Lung-RADS category 2: Benign appearance or behavior. Continue annual screening with noncontrast lo w-dose chest CT in 12 months. 2. Small pericardial effusion. 3. Small sliding-type hiatal hernia. 4. 4 mm nonobstructing right renal stone. Reviewed, dictated and finalized at location A. ICE DESK TECHNICIAN IMPRESSION: 1. Lung-RADS category 2: Benign appearance or behavior. Continue annual screeni ng with noncontrast low-dose chest CT in 12 months. 2. Small pericardial effusion. 3. Small sliding-type hiatal hernia. 4. 4 mm nonobstructing right renal stone.
--- NOTE | ~2022-08-21 | XR_ITS ---
XR knee RT 3V 08/21/2022 07:42 Indication: Polyarthritis Procedure: 3 views right knee Comparison: 05/05/2021 Findings: Stable mild tricompartment osteoarthritis. Small joint effusion. Osteopenia. No acute fract ure or traumatic malalignment. Impression: 1: Stable mild tricompartment osteoarthritis. Reviewed, dictated and finalized at location B. L ENGINEERING DESIGNER Impression: 1: Stable mild tricompartment osteoarthritis.
[2022-08-21 07:25] LABS: Add Urine Microscopic? YES; Appearance Urine Clear (Clear); Basophils Percent Auto 1.2 % (0.0-1.0); Bilirubin Urine Negative (Negative); Blood Urine Negative (Negative); Color Urine Yellow (Yellow); Eosinophils Absolute Auto 0.38 K/mm3 (0.02-0.50); Eosinophils Percent Auto 4.6 % (1.0-6.0); Glucose Urine UA Negative (Negative); Hematocrit 40.3 % (35.0-49.0); Hemoglobin 12.8 g/dL (12.0-15.0); Immature Granulocyte Absolute 0.02 K/mm3 (0.00-0.00); Immature Granulocyte Percent A 0.2 % (0.0-0.0); Ketones Urine Negative (Negative); Leukocyte Esterase Ur 1+ (Negative); Lymphocytes Percent Auto 22.9 % (18.0-42.0); Mean Corpuscular HGB Conc 31.8 g/dL (32.0-36.0); Mean Corpuscular Hemoglobin 33.5 pg (27.0-31.0); Mean Corpuscular Volume 105.5 fL (78.0-102.0); Mean Platelet Volume 9.5 fl (9.2-11.8); Monocytes Absolute Auto 0.64 K/mm3 (0.10-0.90); Monocytes Percent Auto 7.7 % (2.0-11.0); Neutrophils Absolute Auto 5.3 K/mm3 (1.7-7.2); Neutrophils Percent Auto 63.4 % (50.0-70.0); Nitrate Urine Negative (Negative); Platelet Count Result 493 K/mm3 (150-420); Protein Urine Negative (Negative); Red Blood Count 3.82 M/mm3 (4.20-5.40); Red Cell Distribution Width 14.2 % (11.6-14.4); Specific Grav Ur 1.015 (1.010-1.020); Urobilinogen Urine 0.2 mg/dL (0.2-1.0); White Blood Count 8.3 K/mm3 (4.8-10.8); pH Urine 7.5 (5.0-8.0)
[2022-08-21 07:30] LABS: Hemoglobin A1C 5.5 % (<5.7)
[2022-08-21 07:38] LABS: Amorphous Sediment Urine Moderate; Bacteria Urine Trace /hpf; RBC Urine None seen /hpf (0-2); Squamous Epithelial Cell Urine Moderate /hpf (Few)
[2022-08-21 08:06] LABS: Alanine Aminotransferase 46 U/L (14-59); Albumin Level 3.3 g/dL (3.4-5.0); Alkaline Phosphatase 252 U/L (46-116); Anion Gap 6 mmol/L (8-16); Aspartate Amino Transferase 29 U/L (15-37); Bilirubin,Total 0.3 mg/dL (0.00-1.00); Blood Urea Nitrogen 12 mg/dL (7-18); CRP 0.7 mg/dL (0.0-0.9); Calcium 9.3 mg/dL (8.5-10.1); Carbon Dioxide 31 mmol/L (21-32); Chloride 103 mmol/L (98-108); Cholesterol 194 mg/dL (0-200); Estimated Glomerular Filt Rate 59; Glucose 108 mg/dL (70-99); HDL Direct 64 mg/dL (40-60); LDL Cholesterol Calculated 86 mg/dL (<130); Osmolality Calculated 290 mOsm/kg (285-295); Sodium 140 mmol/L (136-145); Thyroid Stimulating Hormone 1.61 uIU/mL (0.36-3.74); Total Protein 7.9 g/dL (6.4-8.2); Triglycerides 222 mg/dL (0-150); Uric Acid 4.7 mg/dL (2.6-6.0)
== END 2022-08-21 07:09 | disposition home or self-care (01) ==
LOC: CHSIMG 07:10
PROVIDERS: PCP Internal Medicine; Visit Provider Internal Medicine
DX: Z12.2 Encounter for screening for malignant neoplasm of respiratory organs (principal); Z87.891 Personal history of nicotine dependence; R73.03 Prediabetes; I31.39 Other pericardial effusion (noninflammatory); K44.9 Diaphragmatic hernia without obstruction or gangrene; N20.0 Calculus of kidney; M17.11 Unilateral primary osteoarthritis, right knee
CPT/HCPCS: 36415; 71271; 73562; 80053; 80061; 81001; 83036; 84443; 84550; 85025; 86140

== ENCOUNTER 2023-01-22 14:19 | Outpatient (CLI) | payer OTHER, SELFPAY ==
--- NOTE | ~2023-01-22 | XR_ITS ---
XR chest 2V DATE: 01/22/2023 15:22 INDICATION: Productive cough, shortness of breath, upper respiratory infection for 2 days. History of COPD. TECHNIQUE: 2 views COMPARISON: August 21, 2022 CT lung screening FINDINGS: There is prominent bibasilar discoid atelectasis. The lungs otherwise appear clear. No pleural effusion or pulmonary vascular congestion or pneumothorax. There is aortic arch calcificat ion, mild aortic unfolding. Mild cardiomegaly. Osteopenia. No suspicious osteolytic or osteoblastic lesions are noted. IMPRESSION: Bibasilar discoid atelectasis Aortic calcification Osteopenia Reviewed, dictated and finalized at location B.
[2023-01-22 14:36] LABS: Hematocrit 34.8 % (35.0-49.0); Mean Corpuscular HGB Conc 31.6 g/dL (32.0-36.0); Mean Corpuscular Volume 104.5 fL (78.0-102.0); Mean Platelet Volume 10.4 fl (9.2-11.8); Platelet Count Result 287 K/mm3 (150-420); Red Blood Count 3.33 M/mm3 (4.20-5.40); Red Cell Distribution Width 14.9 % (11.6-14.4)
[2023-01-22 14:38] LABS: White Blood Count 23.4 K/mm3 (4.8-10.8)
[2023-01-22 14:49] LABS: Band Neutrophils Percent 3 % (0-6); Basophils Percent Manual 0 % (0-1); Eosinophils Percent Manual 0 % (1-6); Lymphocytes Absolute Manual 1.17 K/mm3 (1.1-4.5); Lymphocytes Percent Manual 5 % (18-44); Metamyelocytes Percent 2 %; Monocytes Absolute Manual 0.46 K/mm3 (0.1-0.90); Monocytes Percent Manual 2 % (3-9); Myelocytes Percent 1 %; Neutrophils Absolute Manual 21.06 K/mm3 (1.7-7.2); Neutrophils Percent Manual 87 % (46-73); Platelet Estimate Adequate (Adequate); Total Cells Counted 100
[2023-01-22 15:31] LABS: Alanine Aminotransferase 31 U/L (14-59); Albumin Level 2.9 g/dL (3.4-5.0); Alkaline Phosphatase 176 U/L (46-116); Anion Gap 23 mmol/L (8-16); Aspartate Amino Transferase 28 U/L (15-37); Bilirubin,Total 0.2 mg/dL (0.00-1.00); Blood Urea Nitrogen 59 mg/dL (7-18); Calcium 8.6 mg/dL (8.5-10.1); Carbon Dioxide 18 mmol/L (21-32); Chloride 99 mmol/L (98-108); Estimated Glomerular Filt Rate 9; Glucose 102 mg/dL (70-99); Osmolality Calculated 306 mOsm/kg (285-295); Potassium 4.1 mmol/L (3.5-5.1); Sodium 140 mmol/L (136-145); Total Protein 6.7 g/dL (6.4-8.2)
== END 2023-01-22 14:20 | disposition home or self-care (01) ==
PROVIDERS: PCP Internal Medicine; Visit Provider Nurse Practitioner Family
DX: J40 Bronchitis, not specified as acute or chronic (principal); J06.9 Acute upper respiratory infection, unspecified; J98.11 Atelectasis; I70.0 Atherosclerosis of aorta; M85.88 Other specified disorders of bone density and structure, other site
CPT/HCPCS: 36415; 71046; 80053; 83880; 85025

== ENCOUNTER 2023-01-22 16:35 | Emergency (ER) | payer OTHER, SELFPAY ==
--- NOTE | ~2023-01-22 | XR_ITS ---
XR abdomen/kub 1V 01/22/2023 19:33 Indication: Cough Procedure: KUB Comparison: No prior studies for comparison. Findings: There are right renal stones. There are pelvic phleboliths. Bowel gas pattern nonobstructiv e. There is bibasilar airspace disease. No significant effusion. No pneumothorax. Impression: 1: Right basilar airspace disease may represent atelectasis and/or pneumonia. 2: Right nephrolithiasis. Reviewed, dictated and finalized at location A. Impression: 1: Right basilar airspace disease may represent atelectasis and/or pneumonia. 2: Right nephrolithiasis.
--- NOTE | ~2023-01-22 | XR_ITS ---
XR chest 1V portable 01/22/2023 18:20 Indication: Shortness of breath Procedure: AP portable chest Comparison: Comparison to multiple prior studies sequentially, with oldest reviewed study dated 07/2013. Findings: Heart size normal. No focal air space disease, pulmonary edema, pleural effusion or suspect ed pneumothorax. Impression: 1: No acute cardiopulmonary disease. Reviewed, dictated and finalized at location A. Impression: 1: No acute cardiopulmonary disease.
[2023-01-22 17:28] VITALS: BP 85/49; PULSE 109; RESP 16; TEMP 36.6; O2SAT 99
[2023-01-22 17:48] VITALS: BP 94/65; PULSE 107; RESP 20; TEMP 36.6; O2SAT 92
[2023-01-22 17:58] VITALS: RESP 20; O2SAT 99
--- NOTE | 2023-01-22 18:03 | ECG_ITS ---
Measurements Intervals [place] Rate: 103 P: 48 ID: 104 QRS: 47 QRSD: 92 T: 51 QT: 337 QTc: 441 Interpretive Statements SINUS TACHYCARDIA WITH SHORT ID INTERVAL MINIMAL Q WAVES- INFERIOR LEADS BASELINE ARTIFACT- I, III, AVR, AVL, AVF, V4 BORDERLINE ECG COMPARED TO ECG 10/30/2020 09:37:47 SINUS TACHYCARDIA NOW PRESENT Electronically Signed On 01-22-2023 20:19:12 CDT by Wilfredo Covington D.O.
[2023-01-22 18:08] LABS: Hematocrit 33.8 % (37.0-47.0); Hemoglobin 10.8 g/dL (12.0-15.0); Mean Corpuscular Hemoglobin 33.3 pg (26-34); Mean Corpuscular Volume 104.3 fl (80-100); Mean Platelet Volume 10.4 fl (7.4-10.4); Platelet Count Result 270 k/mm3 (150-375); Red Blood Count 3.24 M/mm3 (4.2-5.4); Red Cell Distribution Width 15.2 % (11.5-14.5); White Blood Count 25.3 K/mm3 (4.5-10.0)
[2023-01-22 18:26] LABS: Alanine Aminotransferase 23 U/L (6-35); Albumin Level 3.7 g/dL (3.5-5.1); Alkaline Phosphatase 178 U/L (38-126); Anion Gap 21 mmol/L (8-16); Aspartate Amino Transferase 34 U/L (14-36); Bilirubin,Total 0.3 mg/dL (0.2-1.3); Blood Urea Nitrogen 53 mg/dL (7-17); Calcium 8.3 mg/dL (8.4-10.2); Carbon Dioxide 14 mmol/L (22-30); Chloride 99 mmol/L (98-107); Estimated CRCL calculation 9 ml/min; Estimated Glomerular Filt Rate 8; Glucose 117 mg/dL (65-110); Potassium 3.9 mmol/L (3.4-5.0); Sodium 134 mmol/L (137-145)
[2023-01-22 18:45] LABS: Band Neutrophils Percent 15 % (0-6); Lymphocytes Absolute Manual 1.01 K/mm3 (1.1-4.5); Metamyelocytes Percent 1 %; Monocytes Absolute Manual 2.02 K/mm3 (0.1-0.90); Monocytes Percent Manual 8 % (3-9); Neutrophils Absolute Manual 22.01 K/mm3 (1.7-7.2); Neutrophils Percent Manual 72 % (46-73); Platelet Estimate Adequate (Adequate); Total Cells Counted 100
[2023-01-22 18:46] LABS: Anisocytosis 2+ (NORMAL); Hypochromasia 1+ (NORMAL); Schistocytes None Seen (NORMAL)
--- NOTE | 2023-01-22 19:17 | ED.GENADULT ---
HPI - General Adult General Chief complaint: Recheck/Abnormal Lab/Rx Stated complaint: abnormal renal labs Time Seen by Provider: 01/22/23 19:07 Source: patient Mode of arrival: ambulatory Limitations: no limitations History of Present Illness HPI narrative: 52 years old white female came to the emergency room because not feeling well, headache throbbing, coughing up clear sputum started yesterday, was seen by her family physician today and and had negative strep throat, flu and COVID later was told by her family physician go to [facility] because of elevated creatinine. She denies any fever or chills or urinary symptoms or chest pain or abdominal pain or diarrhea or vomiting. Patient is telling me that she been taking ibuprofen for years and lately been taking too much because of osteoarthritis. History of hyperlipidemia and osteoarthritis and peripheral neuropathy. Patient smokes 1 pack of cigarette daily, does not drink and started using marijuana recently. Related Data Home Medications Medication Instructions Recorded Confirmed duloxetine 30 mg capsule,delayed 90 mg PO DAILY 11/12/20 01/22/23 release aspirin 81 mg tablet,delayed 81 mg PO DAILY 03/24/21 01/22/23 release (Adult Low Dose Aspirin) omega 3-nql-fdk-fish oil 1,000 mg 1 cap PO DAILY 04/06/22 01/22/23 (120 mg-180 mg) capsule (Fish Oil) gabapentin 300 mg capsule 600 mg PO TID 06/30/22 01/22/23 Allergies Allergy/AdvReac Type Severity Reaction Status Date / Time citric acid Allergy Unknown throat Verified 01/22/23 21:11 edema SEASONAL Allergy Unknown ITCHING Uncoded 01/22/23 21:11 Review of Systems Review of Systems: All systems reviewed & are unremarkable except as noted in HPI and below PMFSH Past Medical History Medical History Acute pancreatitis (~09/01/19) Chronic alcoholism Chronic anemia Chronic pancreatitis Dyslipidemia Tobacco abuse Surgical History Surgical History H/O knee surgery H/O shoulder surgery H/O: hysterectomy History of throat surgery Family History Family History Mother Diabetes mellitus Family history of arthritis Family history of congestive heart failure Father Family history of Alzheimer's disease Other Family history of malignant neoplasm Social History Social History Smoking packs per day: 1 Smoking cigarettes per day: 20.0 Years smoked: 30 Smoking pack-years: 30.00 Smoking status: Current every day smoker Tobacco type: cigarettes Second hand tobacco smoke exposure: Yes Alcohol intake: current Drinks per week: 28 Substance use type: does not use Gender identity (if verbalized by the patient): Female Spiritual care concerns: No Agree to blood products: Yes Exam Narrative: General appearance: Well-developed, well-nourished Skin: Normal color Head: Normocephalic, nontraumatic Eyes: Clear conjunctiva ENT: Dry oral cavity, hoarseness of voice Neck: Supple, nontender Chest and respiratory: Airway patent, no respiratory distress, no accessory muscle use Heart: Regular rate/rhythm Abdomen: Soft, nontender, no organomegaly, quiet bowel sounds Vascular: Normal peripheral pulses, normal capillary refill. Musculoskeletal: Normal range of motion, nontender back Neurologic: Alert and oriented ?3, CARD PUNCHER is normal as tested, no gross motor deficit Course Reevaluation(s) Reevaluation #1: IV was started, Patient declined to be hospitalized and pulled her IV and decided to go home.
--- NOTE | 2023-01-22 19:19 | PC.NURSE ---
This RN assumed care of patient. This RN took report from Rico IBARRA.
[2023-01-22] MEDS: SODIUM CHLORIDE 0.9% IV 1,000 ML 999 ML IV CONT ×2 (19:23)
== END 2023-01-22 19:44 | disposition left against medical advice (07) ==
PROVIDERS: Preventive Medicine Aerospace Medicine; Emergency Provider Emergency Medicine; PCP Internal Medicine
DX: A41.9 Sepsis, unspecified organism (principal); J18.9 Pneumonia, unspecified organism; N17.9 Acute kidney failure, unspecified; E78.5 Hyperlipidemia, unspecified; D64.9 Anemia, unspecified; K86.1 Other chronic pancreatitis; F10.20 Alcohol dependence, uncomplicated; F17.210 Nicotine dependence, cigarettes, uncomplicated; Z90.710 Acquired absence of both cervix and uterus; Z79.82 Long term (current) use of aspirin; R00.0 Tachycardia, unspecified; N20.0 Calculus of kidney
CPT/HCPCS: 36415; 36600; 71045; 74018; 80053; 85025; 93005; 99283; J7030

== ENCOUNTER 2023-01-22 20:27 | Emergency (ER) | payer OTHER, SELFPAY ==
--- NOTE | ~2023-01-22 | CT_ITS ---
EXAMINATION: CT chest abdomen pelvis wo con DATE: 01/22/2023 21:31 CDT INDICATION: Hypotension TECHNIQUE: Computed tomography (CT) of the chest, abdomen, and pelvis was performed without intraveno us contrast. The dose-length product was 385.98 mGy-cm. Automated exposure control and iterative salina nstruction technique were employed. COMPARISON: KUB dated 01/22/2023 FINDINGS: CHEST CT: No thoracic lymphadenopathy. No significant pleural or pericardial effusion. There is emphysema. Ther e is bilateral lower lobe airspace consolidation, consistent with pneumonia, not appreciated on chest x-ray. ABDOMEN/PELVIS CT: There is an 8 mm distal left ureteral stone with mild left hydronephrosis. In retrospect the stone is visualized on the KUB. There are nonobstructing right renal stones. The right kidney is atrophic. Th ere are gallstones. The liver, spleen, pancreas, adrenal glands and left kidney are unremarkable. Daniel dder is decompressed. There is atherosclerosis of the aorta without evidence for aneurysm. No lymphad enopathy. No abnormal pelvic masses or fluid collections. IMPRESSION: 1. Bilateral lower lobe airspace consolidation, consistent with pneumonia. 2: Distal left ureteral stone just proximal to the UVJ measuring 8 mm. Mild left hydronephrosis. 3: Nonobstructing right nephrolithiasis. 4: Cholelithiasis. Reviewed, dictated and finalized at location A. IMPRESSION: 1. Bilateral lower lobe airspace consolidation, consistent with pneumonia. 2: Distal left ureteral stone just proximal to the UVJ measuring 8 mm. Mild lef t hydronephrosis. 3: Nonobstructing right nephrolithiasis. 4: Cholelithiasis.
--- NOTE | 2023-01-22 20:29 | ED.GENADULT ---
HPI - General Adult General Chief complaint: Recheck/Abnormal Lab/Rx Stated complaint: abnormal labs Time Seen by Provider: 01/22/23 20:28 Source: patient Mode of arrival: ambulatory Limitations: no limitations History of Present Illness HPI narrative: 52-year-old female smoker history alcoholism, history of subdural hematoma,chronic pancreatitis dyslipidemia, arthritis with right knee pain, diastolic dysfunction with a negative stress test in 2020, peripheral neuropathy developed low-grade fever, cough with mucopurulent sputum, headache and ill feeling for which she called the primary care physician. Physician ordered blood work which revealed -- acute renal failure with a BUN/creatinine of 53/5.4 up from her baseline of 05/28 done on 08/21/2022. Patient was noted to have stable electrolytes but was noted to have metabolic acidosis with a bicarbonate of 14. The patient was advised to go to [facility] where she was seen by the ER physician. The patient had blood work which revealed similar findings . the patient had x-ray of the chest and the abdomen which did not show any acute findings. The patient has signed out AMA because she was not receiving IV fluids by the ER physician. -- The patient presents to the ER here and is noted to have hypotension with blood pressure as low as 65/44. -- Complaints of cough and shortness of breath. -- Headache which is generalized without any focal deficits. The patient had right knee pain and had been taking increased amounts of necessitates over t Onset (ago): day(s) ( The symptoms started 1 day ago.) Quality: aching Pain Consistency: constant Relieving factors: none Associated symptoms: denies other symptoms, cough, headaches and shortness of breath Related Data Home Medications Medication Instructions Recorded Confirmed duloxetine 30 mg capsule,delayed 90 mg PO DAILY 11/12/20 01/22/23 release aspirin 81 mg tablet,delayed 81 mg PO DAILY 03/24/21 01/22/23 release (Adult Low Dose Aspirin) omega 7-tec-gws-fish oil 1,000 mg 1 cap PO DAILY 04/06/22 01/22/23 (120 mg-180 mg) capsule (Fish Oil) gabapentin 300 mg capsule 600 mg PO TID 06/30/22 01/22/23 Allergies Allergy/AdvReac Type Severity Reaction Status Date / Time citric acid Allergy Unknown throat Verified 01/22/23 21:11 edema SEASONAL Allergy Unknown ITCHING Uncoded 01/22/23 21:11 Review of Systems Review of Systems: All systems reviewed & are unremarkable except as noted in HPI and below Constitutional: Constitutional: Reports as per HPI, Reports no additional constitutional complaints, Reports fatigue and Reports weakness Eyes: Eyes: Reports as per HPI and Reports no additional eye complaints ENT: Reports system reviewed and no additional complaints, except as documented and Reports as per HPI Cardiovascular: Cardiovascular: Reports as per HPI and Reports no additional cardiovascular complaints Respiratory: Respiratory: Reports as per HPI and Reports no additional respiratory complaints Gastrointestinal: Gastrointestinal: Reports as per HPI and Reports no additional gastrointestinal complaints Genitourinary: Genitourinary: Reports no additional female genitourinary complaints and Reports as per HPI Comments: Decreased urine output no dysuria or hematuria Musculoskeletal: Musculoskeletal: Reports no additional musculoskeletal complaints and Reports as per HPI Integumentary/Breasts: Skin/Breast: Reports system reviewed and no additional complaints, except as docu and Reports as per HPI Neurologic: Reports system reviewed and no additional complaints, except as documented and Reports as per HPI Comments: paresthesias of the toes in the fingers Psychiatric: Psychiatric: Reports no additional psychiatric complaints and Reports as per HPI Endocrine: Endocrine: Reports no additional endocrine complaints and Reports as per HPI Hematologic/Lymphatic: Hematologic/Lymphatic: Reports no additio
[2023-01-22 20:43] VITALS: BP 71/52; PULSE 101; RESP 27; TEMP 37.1; O2SAT 98
--- NOTE | 2023-01-22 20:46 | ECG_ITS ---
Measurements Intervals [place] Rate: 101 P: 72 MA: 126 QRS: 69 QRSD: 106 T: 51 QT: 364 QTc: 472 Interpretive Statements SINUS TACHYCARDIA BASELINE ARTIFACT- I, II, III BORDERLINE ECG COMPARED TO ECG 01/22/2023 17:56:27 NO SIGNIFICANT CHANGES Electronically Signed On 01-23-2023 7:18:47 CDT by Wilfredo Covington D.O.
[2023-01-22] MEDS: SODIUM CHLORIDE 0.9% IV 1,000 ML 999 ML IV CONT ×2 (20:55→22:04)
[2023-01-22] MEDS: SODIUM BICARBONATE 8.4% 50 MEQ/50 ML SYRINGE IV PUSH (20:57)
--- NOTE | 2023-01-22 21:12 | PC.NURSE ---
Pt reports that she does not want to stay in the hospital. ERP aware. Fluids remain infusing.
[2023-01-22 21:13] LABS: Lactic Acid Reflex 2.1 mmol/L (0.4-2.0)
[2023-01-22 21:16] LABS: Creatine Kinase 58 U/L (26-192); Lipase 25 U/L (16-77); Magnesium 2.4 mg/dL (1.8-2.4); Troponin I 9.7 ng/L (0.00-60.4)
[2023-01-22 21:23] LABS: INR 1.3; Partial Thromboplastin Time 37.1 SEC (23.90-30.70); Prothrombin Time 14.1 Seconds (9.50-12.10)
--- NOTE | 2023-01-22 21:34 | PC.NURSE ---
Pt adamantly wanting to sign out AMA. ERP to bedside with spouse to discuss current condition and findings. ERP speaking with pt's daughter on cell phone. Multiple attempts by ERP to explain condition and concerns. Pt alert and oriented but states to spouse and daughter They say I'm in kidney failure, but I know I'm not.
[2023-01-22 21:35] VITALS: BP 91/57; PULSE 107; RESP 28; O2SAT 97
--- NOTE | 2023-01-22 21:54 | PC.NURSE ---
Pt now agreeable to transfer. is aware. Pt then reluctant to stay but then agrees. Pt spouse at bedside tells her that she needs to stay and then leaves with grandchildren.
[2023-01-22 22:00] LABS: Appearance Urine Clear (Clear); Bilirubin Urine Negative (Negative); Blood Urine 2+ (Negative); Color Urine Yellow (Yellow); Glucose Urine UA Negative (Negative); Ketones Urine Negative (Negative); Leukocyte Esterase Ur 3+ LEU/UL (Negative); Nitrate Urine Negative (Negative); Protein Urine 3+ (Negative); Specific Grav Ur 1.015 (1.010-1.020); Urobilinogen Urine 0.2 mg/dL (0.2-1.0)
[2023-01-22] MEDS: CEFEPIME 2 GM/NS 50 ML 2 GM/50 ML BAG IVPB (22:04)
[2023-01-22 22:06] LABS: Add Urine Microscopic? YES; RBC Urine >75 /hpf (0-2); WBC Urine >75 /hpf (0-3)
[2023-01-22 22:07] LABS: Bacteria Urine 4+ /hpf; Squamous Epithelial Cell Urine None seen /hpf (Few)
--- NOTE | 2023-01-22 22:08 | PC.NURSE ---
[place] catheter inserted by LUPE Hendrickson. Pt tolerated well.
--- NOTE | 2023-01-22 22:19 | PC.NURSE ---
Awaiting ICU bed from [facility] at this time.
[2023-01-22 22:20] VITALS: PULSE 106; RESP 31
--- NOTE | 2023-01-22 22:25 | PC.NURSE ---
Pt now again refusing transfer, second abx, and further treatment. ERP returns to bedside. Pt signs declination for transfer and signs AMA form. IV d/c'd. [place]field d/c'd.
[2023-01-22 22:30] VITALS: PULSE 114; RESP 26
[2023-01-22 22:31] VITALS: BP 110/62; PULSE 115; RESP 37
[2023-01-22 23:56] LABS: Reflex Lactic Acid Yes or No Add Lactic
--- NOTE | 2023-01-24 11:10 | PC.NURSE ---
preliminary blood culture reviewed, call placed to [place] [facility], notified abnormal and faxed to paul, confirmation of fax received
== END 2023-01-22 22:30 | disposition short-term general hospital (02) ==
PROVIDERS: Emergency Provider Internal Medicine Critical Care Medicine; PCP Internal Medicine
DX: N17.9 Acute kidney failure, unspecified (principal); N20.1 Calculus of ureter; R65.21 Severe sepsis with septic shock; J18.9 Pneumonia, unspecified organism; N30.00 Acute cystitis without hematuria; R06.02 Shortness of breath; E78.5 Hyperlipidemia, unspecified; F17.210 Nicotine dependence, cigarettes, uncomplicated; Z79.82 Long term (current) use of aspirin; Z79.899 Other long term (current) drug therapy
CPT/HCPCS: 36415; 71250; 74176; 81001; 81003; 82550; 83605; 83690; 83735; 84484; 85610; 85730; 87040; 87077; 87086; 87088; 87147; 87186; 93005; 96361; 96365; 96375; 99285; J0692; J7030

== ENCOUNTER 2023-01-23 12:24 | Emergency (ER) | payer OTHER, SELFPAY ==
[2023-01-23] VITALS (28 sets, daily range): BP systolic 83–108; BP diastolic 56–80; PULSE 93–103; RESP 19–40; TEMP 36.9; O2SAT 56–100
[2023-01-23 13:48] LABS: Hematocrit 33.4 % (35.0-49.0); Mean Corpuscular HGB Conc 32.9 g/dL (32.0-36.0); Mean Corpuscular Hemoglobin 33.3 pg (27.0-31.0); Mean Corpuscular Volume 101.2 fL (78.0-102.0); Mean Platelet Volume 10.6 fl (9.2-11.8); Platelet Count Result 219 K/mm3 (150-420); Red Cell Distribution Width 14.8 % (11.6-14.4)
[2023-01-23 13:53] LABS: White Blood Count 21.7 K/mm3 (4.8-10.8)
--- NOTE | 2023-01-23 13:56 | ED.GENADULT ---
HPI - General Adult General Chief complaint: Shortness of Breath/Dyspnea Stated complaint: headache; diarrhea; short of breath Source: patient and family Mode of arrival: ambulatory Limitations: no limitations History of Present Illness HPI narrative: Patient is a 52-year-old female who was in the emergency room last night with my prior attending and she left AMA after finding that she had a left kidney stone in the ureter with some residual kidney injury. Patient proceeded to leave AMA and came back this afternoon for evaluation again after she lost stool as a bout of diarrhea. I reviewed her records from last night and she has a bilateral base pneumonia with a urinary tract infection and acute kidney injury with a distal ureter 8 mm stone. Patient is far behind the ball at this time as she left AMA and now back again and we will try to expedite her transfer to Urology as soon as possible. Onset (ago): day(s) (2) Location: head and abdomen Radiation: non-radiation Severity: mild Severity scale (1-10): 3 Quality: aching Pain Consistency: constant Relieving factors: none Exacerbating factors: none Associated symptoms: malaise Treatments prior to arrival: none Related Data Home Medications Medication Instructions Recorded Confirmed duloxetine 30 mg capsule,delayed 90 mg PO DAILY 11/12/20 01/23/23 release aspirin 81 mg tablet,delayed 81 mg PO DAILY 03/24/21 01/23/23 release (Adult Low Dose Aspirin) omega 2-xri-awo-fish oil 1,000 mg 1 cap PO DAILY 04/06/22 01/23/23 (120 mg-180 mg) capsule (Fish Oil) gabapentin 300 mg capsule 600 mg PO TID 06/30/22 01/23/23 Allergies Allergy/AdvReac Type Severity Reaction Status Date / Time citric acid Allergy Unknown throat Verified 01/23/23 12:53 edema SEASONAL Allergy Unknown ITCHING Uncoded 01/23/23 12:53 Review of Systems Review of Systems: All systems reviewed & are unremarkable except as noted in HPI and below Constitutional: Constitutional: Reports no additional constitutional complaints Eyes: Eyes: Reports no additional eye complaints ENT: Reports system reviewed and no additional complaints, except as documented Cardiovascular: Cardiovascular: Reports no additional cardiovascular complaints Respiratory: Respiratory: Reports no additional respiratory complaints Gastrointestinal: Gastrointestinal: Reports no additional gastrointestinal complaints Genitourinary: Genitourinary: Reports no additional female genitourinary complaints Musculoskeletal: Musculoskeletal: Reports no additional musculoskeletal complaints Integumentary/Breasts: Skin/Breast: Reports system reviewed and no additional complaints, except as docu Neurologic: Reports system reviewed and no additional complaints, except as documented Psychiatric: Psychiatric: Reports no additional psychiatric complaints Endocrine: Endocrine: Reports no additional endocrine complaints Hematologic/Lymphatic: Hematologic/Lymphatic: Reports no additional hematologic/lymphatic complaints Allergic/Immunologic: Allergic/Immunologic: Reports no additional allergic/immunologic complaints PMFSH Past Medical History Medical History Acute pancreatitis (~09/01/19) Chronic alcoholism Chronic anemia Chronic pancreatitis Dyslipidemia Tobacco abuse Surgical History Surgical History H/O knee surgery H/O shoulder surgery H/O: hysterectomy History of throat surgery Family History Family History Mother Diabetes mellitus Family history of arthritis Family history of congestive heart failure Father Family history of Alzheimer's disease Other Family history of malignant neoplasm Social History Social History Smoking packs per day: 1 Smoking cigarettes per day: 20.0 Years smoked: 30
[2023-01-23 14:02] LABS: Alanine Aminotransferase 26 U/L (14-59); Albumin Level 2.4 g/dL (3.4-5.0); Alkaline Phosphatase 240 U/L (46-116); Anion Gap 21 mmol/L (8-16); Aspartate Amino Transferase 26 U/L (15-37); Bilirubin,Total 0.2 mg/dL (0.00-1.00); Blood Urea Nitrogen 66 mg/dL (7-18); Calcium 7.3 mg/dL (8.5-10.1); Carbon Dioxide 17 mmol/L (21-32); Chloride 102 mmol/L (98-108); Estimated CRCL calculation 10 ml/min; Estimated Glomerular Filt Rate 9; Glucose 111 mg/dL (70-99); Osmolality Calculated 310 mOsm/kg (285-295); Potassium 3.6 mmol/L (3.5-5.1); Sodium 140 mmol/L (136-145); Total Protein 6.7 g/dL (6.4-8.2)
[2023-01-23 14:06] LABS: Band Neutrophils Percent 14 % (0-6); Lymphocytes Percent Manual 0 % (18-44); Metamyelocytes Percent 3 %; Monocytes Absolute Manual 0.21 K/mm3 (0.1-0.90); Monocytes Percent Manual 1 % (3-9); Myelocytes Percent 2 %; Neutrophils Absolute Manual 20.39 K/mm3 (1.7-7.2); Neutrophils Percent Manual 80 % (46-73); Platelet Estimate Adequate (Adequate); Schistocytes None Seen (NORMAL); Total Cells Counted 100
[2023-01-23 14:27] LABS: Lactic Acid Reflex 1.2 mmol/L (0.4-2.0)
[2023-01-23] MEDS: HYDROcodone/acetaminophen (*CRX) 5-325 MG TABLET 1 TAB PO (14:41)
[2023-01-23] MEDS: levoFLOXacin 500 MG/D5W 100 ML 500 MG/100 ML BAG 100 MG IVPB (14:59)
[2023-01-23] MEDS: SODIUM CHLORIDE 0.9% IV 1,000 ML 999 ML IV CONT ×3 (16:08→17:50)
--- NOTE | 2023-01-30 12:33 | PC.NURSE ---
Final blood culture report: no growth after 5 days. no further action or treatment needed.
== END 2023-01-23 18:00 | disposition short-term general hospital (02) ==
PROVIDERS: Emergency Provider Emergency Medicine; PCP Internal Medicine
DX: N20.1 Calculus of ureter (principal); N28.9 Disorder of kidney and ureter, unspecified; J18.9 Pneumonia, unspecified organism; E78.5 Hyperlipidemia, unspecified; K86.1 Other chronic pancreatitis; F17.210 Nicotine dependence, cigarettes, uncomplicated; Z79.82 Long term (current) use of aspirin
CPT/HCPCS: 36415; 80053; 83605; 85025; 87040; 96361; 96365; 99285; A9270; J1956; J7030

== ENCOUNTER 2023-01-23 18:45 | Inpatient (IN) | payer OTHER, SELFPAY ==
--- NOTE | ~2023-01-23 | US_ITS ---
EXAMINATION: US renal BI DATE: 01/24/2023 08:57 INDICATION: acut kid in TECHNIQUE: Multiple grayscale and Doppler ultrasound images of the kidneys were obtained. COMPARISON: None. FINDINGS: The right kidney measures 9.2 x 4.2 x 4.3, mildly atrophic, with mild cortical thinning compared to t he left The left kidney measures 11.9 x 6.1 x 6.7 cm. The kidneys demonstrate normal parenchymal echo genicity. Left-sided ureteral stent. There is no hydronephrosis. The bladder is normal. IMPRESSION: Mild right atrophy. Left ureteral stent. No hydronephrosis. Reviewed, dictated and finalized at location K.
--- NOTE | ~2023-01-23 | XR_ITS ---
EXAMINATION: XR retrograde pyelo w/stent LT DATE: 01/23/2023 22:20 CDT INDICATION: LT SIDED RETROGRADE W/STENT . TECHNIQUE: 6 fluoroscopic images of the abdomen and pelvis were obtained during left retrograde pyelo graphy with stent placement performed by the surgeon. I was not present in the operating room. Fluoro scopy exposure time was 61.8 seconds. Air Kerma 18.76 mGy. DAP [id number] mGym2. COMPARISON: CT CAP 01/22/2023 FINDINGS: Catheter and wire access to the left collecting system is accomplished, followed by contrast injectio n and stent placement. Proximal coil projects over an upper pole calyx. The distal coil projects over the bladder. IMPRESSION: Fluoroscopic documentation of left-sided retrograde pyelography with stent placement. Please refer to the operative note for complete procedural details . Reviewed, dictated and finalized at location K. IMPRESSION: Fluoroscopic documentation of left-sided retrograde pyelography with stent plac ement. Please refer to the operative note for complete procedural details .
--- NOTE | 2023-01-23 18:31 | ADMGEN ---
This patient, Dinah Batres, was admitted to ICU 10 at 1831 from [place]. Patient/family oriented to hospital policies and general routines including ID bracelet, bed and alarms, visiting hours, pain management, procedures, bathroom and other care routines, personal items, smoking policy, room service/diet, and visiting hours. Information on how to activate the Rapid Response Team has been discussed. Patient/Family are encouraged to report perceived risks to care and to ask questions if they do not understand what they are told or what they should do.
[2023-01-23 18:36] VITALS: BMI 24.6
[2023-01-23 18:39] VITALS: BP 102/70; PULSE 93; RESP 31; TEMP 36.9; O2SAT 95
--- NOTE | 2023-01-23 18:49 | PM.IMHP ---
H&P: HPI History of Present Illness Date/Time: 01/23/23 19:00 Chief Complaint: Sepsis, pneumonia, obstructing ureteral stone. Narrative: This is a 52-year-old female smoker with reported history of coronary artery disease, hyperlipidemia, stroke, COPD, anxiety, and neuropathy who is being directly admitted to the ICU from the emergency department at [facility] after she was found to have sepsis, pneumonia, and obstructing ureteral stone. The patient provides the following history. She has not been feeling well for several days with a throbbing headache, cough productive of clear though occasional green phlegm, and worsening hoarseness from baseline. She saw her doctor and there she tested negative for strep throat, influenza, and COVID. She had labs drawn and was referred to the emergency department last evening after she was found to have an elevated BUN and creatinine of 53 and 5.40 which is up from her baseline of 12 and 1.0 in July 2022. In addition to the acute kidney injury she was found to have bibasilar pneumonia and a left ureteral stone. Transfer was initiated to [facility] and she was accepted by their ICU however she left against medical advice for unclear reasons. Since that time she has been hydrating significantly and she reports that her urine output has picked up. She decided to come back in today for evaluation as she was not feeling any better and she started to have some loose stools. She is really not feeling any worse however. She was afebrile on arrival to the emergency department at the outside facility. Her blood pressures had been steadily running in the 80s to 90s systolic but they improved with aggressive IV fluids. Transfer was initiated to the ICU for further treatment and evaluation. She is to go to the OR [facility] for cystoscopy and stent placement. At the time my evaluation her main complaint is that of her chronic pain related to neuropathy. She typically takes 1200 mg of ibuprofen several times a day and has done so for many years for this pain. She continues to have a dry cough but is not significant. She denies fever, chills, sweats, syncope, near syncope, chest pain, pleuritic pain, shortness a breath, nausea, vomiting, and dysuria. She has had some loose stools today as detailed in HPI. Review of Systems Review of Systems: Twelve systems were reviewed. No fever. Headache has improved. She has chronic coarseness which has been worse. She denies sore throat. No significant sinus congestion. She has had a cough as detailed above. No melena or hematochezia. She denies dysuria and hematuria. Except as documented, all other systems were reviewed and are negative. [facility] Past Medical History Medical History Acute pancreatitis (09/01/19) Alcoholic peripheral neuropathy Anxiety and depression Cerebrovascular accident Left-sided weakness. Chronic anemia Chronic obstructive pulmonary disease Chronic pancreatitis Coronary artery disease Diastolic dysfunction (12/2020) EF 73% Dyslipidemia Emphysema lung Gastroesophageal reflux disease Hiatal hernia History of alcoholism Kidney stones Marijuana use Tobacco abuse Surgical History Surgical History H/O shoulder surgery History of arthroscopy of left knee (01/2016) History of hysterectomy (06/2011) History of lithotripsy History of open reduction and internal fixation (ORIF) procedure Repair left ankle and elbow fractures. History of throat surgery (11/2018) Vocal cord biopsy for hoarseness. Family History Family History Mother Diabetes mellitus Family history of arthritis Family history of congestive heart failure Father Family history of Alzheimer's disease Other Family history of malignant neoplasm Social History Social History (Rev
[2023-01-23] MEDS: LACTATED RINGERS 1,000 ML 100 ML IV CONT (19:58)
[2023-01-23 20:00] VITALS: BP 104/80; PULSE 92; RESP 24; TEMP 36.9; O2SAT 98
[2023-01-23 20:10] LABS: Anion Gap 22 mmol/L (8-16); Blood Urea Nitrogen 56 mg/dL (7-17); Calcium 6.5 mg/dL (8.4-10.2); Carbon Dioxide 7 mmol/L (22-30); Chloride 110 mmol/L (98-107); Creatine Kinase 58 U/L (30-135); Estimated CRCL calculation 12 ml/min; Estimated Glomerular Filt Rate 11; Glucose 101 mg/dL (65-110); Magnesium 2.4 mg/dL (1.6-2.3); Phosphorus 4.2 mg/dL (2.5-4.5); Potassium 3.8 mmol/L (3.4-5.0); Sodium 139 mmol/L (137-145)
[2023-01-23] MEDS: fentaNYL CITRATE INJ (*CRX) 100 MCG/2 ML VIAL 25 MCG IV PUSH (20:31)
--- NOTE | 2023-01-23 20:37 | WPDANESEPP ---
Anes - Eval Pre Procedure Date/Time: 01/23/23 20:37 Pre Op Diagnosis: Sepsis/Acute Kidney Injury/Lt UVJ Stone/PNA Patient Data Age: 52 Gender: F Height: 1.63 m Weight: 65.1 kg Last Vital Signs Temp 36.9 C 01/23/23 18:39 Pulse 93 01/23/23 18:39 Resp 31 H 01/23/23 18:39 BP 102/70 01/23/23 18:39 Pulse Ox 95 01/23/23 18:39 Allergies Allergy/AdvReac Type Severity Reaction Status Date / Time citric acid Allergy Unknown throat Verified 01/23/23 12:53 edema SEASONAL Allergy Unknown ITCHING Uncoded 01/23/23 12:53 Home Medications Medication Instructions Recorded Confirmed Type duloxetine 30 mg capsule,delayed 60 mg PO BID 11/12/20 01/23/23 History release aspirin 81 mg tablet,delayed 81 mg PO DAILY 03/24/21 01/23/23 History release (Adult Low Dose Aspirin) omega 8-kqy-gqk-fish oil 1,000 mg 1 cap PO DAILY 04/06/22 01/23/23 History (120 mg-180 mg) capsule (Fish Oil) atorvastatin 40 mg tablet 40 mg PO DAILY 01/23/23 01/23/23 History gabapentin 400 mg capsule 1,200 mg PO TID 01/23/23 01/23/23 History Laboratory Tests 01/23/23 01/23/23 01/23/23 19:49 19:49 19:49 Sodium 139 mmol/L (137-145) Potassium 3.8 mmol/L (3.4-5.0) Chloride 110 H mmol/L (98-107) Carbon Dioxide 7 L mmol/L (22-30) Anion Gap 22 H mmol/L (8-16) BUN 56 H mg/dL (7-17) Creatinine 4.20 H mg/dL (0.7-1.0) Estim Creat Clear Calc 12 ml/min Estimated GFR 11 L (59 - ) Glucose 101 mg/dL (65-110) Calcium 6.5 L mg/dL (8.4-10.2) Phosphorus 4.2 mg/dL Cancelled (2.5-4.5) Magnesium 2.4 H mg/dL Cancelled (1.6-2.3) Total Creatine Kinase 58 U/L (30-135) 01/23/23 19:49 Sodium Potassium Chloride Carbon Dioxide Anion Gap BUN Creatinine Estim Creat Clear Calc Estimated GFR Glucose Calcium Phosphorus Magnesium Total Creatine Kinase Cancelled Patient hx anesthesia problems: none Family hx anesthesia problems: none Results Review: All pre-operative results and documents have been reviewed as part of the pre-operative evaluation. [facility] Past Medical History Medical History (Updated 01/23/23 @ 20:44 by Charla Dickens CRNA) Acute pancreatitis (~09/01/19) Anxiety and depression ARF (acute renal failure) CAD (coronary artery disease) Chronic alcoholism Chronic anemia Chronic pancreatitis COPD (chronic obstructive pulmonary disease) CVA (cerebral vascular accident) left sided weakness Diastolic dysfunction 01/22/21 EF 73% Dyslipidemia Emphysema lung FH: HTN (hypertension) GERD (gastroesophageal reflux disease) Marijuana use Tobacco abuse Surgical History Surgical History H/O knee surgery H/O shoulder surgery H/O: hysterectomy History of throat surgery Family History Family History Mother Diabetes mellitus Family history of arthritis Family history of congestive heart failure Father Family history of Alzheimer's disease Other Family history of malignant neoplasm Social History Social History Smoking packs per day: 1 Smoking cigarettes per day: 20.0 Years smoked: 30 Smoking pack-years: 30.00 Smoking status: Current every day smoker Tobacco type: cigarettes Second hand tobacco smoke exposure: Yes Alcohol intake: former Drinks per week: 28 Substance use: current Substance use type: marijuana Lack of Transportation: No Lack of Food: Never True Current Housing: I Have Housing Concerned About Future Housing: Decline to Answer Difficulty Paying Gas/Electric Bills: Decline to Answer Difficulty Paying for Meds: Decline to Answer [facility]
[2023-01-23] MEDS: VANCOMYCIN 1,000 MG/NS 250 ML 1,000 MG/250 ML BAG 250 MG IVPB (21:13)
[2023-01-23] MEDS: MEROPENEM 1 GM in SODIUM CHLORIDE 0.9% IV 100 ML 200 ML IVPB (21:16)
[2023-01-23 22:00] VITALS: BP 117/69; PULSE 89; RESP 20; O2SAT 97
--- NOTE | 2023-01-23 22:05 | WPDURCON ---
Assessment and Plan Assessment and plan (1) Left ureteral stone: Code(s): N20.1 - Calculus of ureter Status: Acute Assessment and Plan: left ureter stone with UTI, HOLLY and hydro plan for cysto left RPG and stent placement, risks, benefits, alternatives nature of procedure, temporary nature of stent emphasized and discussed. Discussed risks including but not limited to bleeding, infection, trauma to organs, ureteral injury need for PCN and transfer to higher level of care facility with IR capabilities reviewed. -pt understands we will not be treating stone today. She will need future treatment when acute issues have subsided, pt aware of riks and the fact the stent can cause pain and/or irritative voiding symptoms. Additionally pt aware of anesthesia and positioning complications of DVT, PE, AK stroke and disability. she voiced understanding and desires to proceed, all ? answered (2) Acute renal insufficiency: Code(s): N28.9 - Disorder of kidney and ureter, unspecified Status: Acute (3) Pneumonia: Qualifiers: Laterality: bilateral Lung location: lower lobe of lung Pneumonia type: due to unspecified organism Qualified Code(s): J18.9 - Pneumonia, unspecified organism Code(s): J18.9 - Pneumonia, unspecified organism Status: Acute Plan left ureter stone, UTI, hydro and HOLLY -plan for Urology Consult Note HPI Date Seen: 01/23/23 Requesting Physician: Teresita Manning DO Primary Care Provider: Mazin Meehan MD Consult Narrative Narrative: Dinah Batres is a 52 year old female with multiple medical problems transferred from [facility] with HOLLY, left ureter stone, hydronephrosis, and UTI. She has been transferred to ICU. Hse was seen in ER yesterday, and left AMA. She returned due to diarrhea. Transferred to [facility] for further care. CR elevated at 4.2, WBC 21. CT shows left distal ureter stone and hydro. Pt states she has a hx of neph tube and PCNL at [facility] in [place] about 10 years ago. She is a prior alcoholic and states she quit 2 years ago. Review of Systems Constitutional: Constitutional: Reports no additional constitutional complaints Eyes: Eyes: Reports no additional eye complaints ENT: Reports system reviewed and no additional complaints, except as documented Cardiovascular: Cardiovascular: Reports as per HPI Respiratory: Respiratory: Reports no additional respiratory complaints Gastrointestinal: Gastrointestinal: Reports no additional gastrointestinal complaints Genitourinary: Genitourinary: Reports no additional female genitourinary complaints Musculoskeletal: Musculoskeletal: Reports no additional musculoskeletal complaints Integumentary/Breasts: Skin/Breast: Reports system reviewed and no additional complaints, except as docu Psychiatric: Psychiatric: Reports no additional psychiatric complaints [facility] Past Medical History Medical History (Updated 01/23/23 @ 22:20 by Kari Castaneda PA-C) Acute pancreatitis (09/01/19) Alcoholic peripheral neuropathy Anxiety and depression Cerebrovascular accident Left-sided weakness. Chronic anemia Chronic obstructive pulmonary disease Chronic pancreatitis Coronary artery disease Diastolic dysfunction (12/2020) EF 73% Dyslipidemia Emphysema lung Gastroesophageal reflux disease Hiatal hernia History of alcoholism Kidney stones Marijuana use Tobacco abuse Surgical History Surgical History (Updated 01/23/23 @ 22:20 by Kari Castaneda PA-C) H/O shoulder surgery History of arthroscopy of left knee (01/2016) History of hysterectomy (06/2011) History of lithotripsy History of open reduction and internal fixation (ORIF) procedure Repair left ankle and elbow fractures. History of throat surgery (11/2018) Vocal cord biopsy for hoarseness. Family History Family History Mother Diabetes
--- NOTE | 2023-01-23 22:13 | WPDHPUPDATE1 ---
History and Physical Update Update Date/Time: 01/23/23 22:13 History and Physical has been reviewed, including an updated exam of the patient. There are NO changes in the patient's condition. Risks, benefits, and alternatives have been discussed and questions answered. Patient agrees to proceed with procedure.
--- NOTE | 2023-01-23 22:16 | P.PNAN_ITS ---
Anes - Eval Final PreProcedure Day of Procedure 01/23/23 22:16 Patient weight: normal Heart: regular rate and rhythm Lungs: clear to auscultation Airway: Mallampati scale class III Neurological: alert and oriented Last oral intake: >/= 8 hours ASA classification: IV Emergent: yes Anesthetic plan: proceed Anesthesia type and monitoring: general GIVS and standard monitoring Results Review: All pre-operative results and documents have been reviewed as part of the pre- operative evaluation. Informed Consent: The patient's anesthetic plan and its attendant risks and benefits were discussed with the patient/family/POA. Questions were solicited and answers provided to the satisfaction of the patient/family/POA.
[2023-01-23] MEDS: LIDOCAINE HCL 2% GEL UROJET 10 ML PKG MUCOUS MEM (22:36)
--- NOTE | 2023-01-23 22:46 | P.OP_ITS ---
Procedure Note - Detailed Date of Procedure 01/23/23 Pre-op Diagnosis Sepsis/Acute Kidney Injury/Lt UVJ Stone/PNA Post-op Diagnosis Same Procedure Performed cystoscopy , left retrograde pyelogram, left ureteral stent placement Surgeon Zay Ortega MD Anesthesia MAC and Local Indications left ureter stone, HOLLY, sepsis Findings left distal ureter stone Description of Procedure Description of procedure: Pt was brought back to the operating room, she was prepped and draped in standard fashion in the dorsal lithotomy position with Betadine scrub to the genitalia.She was given MAC sedation. She is currently on broad spectrum IV antibiotics in the ICU. After appropriate patient identifiers were used, a 22 Fr cystoscopy was inserted into the urinary bladder, urethra was normal, bladder mucosa had cystitis with no tumor lesion or stone seen. She had single orthotopic ureteral orifices. On retail property manager fluoroscopy, stone was seen in distal ureter as radiopaque density. I placed a sensor wire , it would not pass the obstruction, I used an angle tipped glide wire, and I was able to pass this up into the renal pelvis. 5 fr open ended catheter passed over this into the kidney, gentle retrograde was performed to outline the collecting system, she has mild hydronephrosis and hydroureter to the level of the stone. Sensor wire was replaced. 4.8 Fr variable length stent threaded over wire, good curl seen fluoroscopically in the kidney and both fluoroscopically and endoscopically in the bladder. Bladder was drained, all instruments removed. Patient awoken and transferred to ICU in guarded condition Implants left 4.8 Fr variable length Double J stent Packing No Pathology None sent Complications No immediate complications Condition Stable Disposition ICU
[2023-01-23 23:00] VITALS: BP 107/77; PULSE 88; RESP 17; O2SAT 95
[2023-01-23 23:08] VITALS: O2SAT 93
[2023-01-23 23:08] LABS: Alveolar/Arterial O2 Gradient 50.5 mmHg; Base Excess ABG -12.6 mEq/l (+/-2.0); Carboxyhemoglobin 0.3 % THb (0-2.0); Fractional Inspired Oxygen 21 %; HCO3 ABG 12.4 mEq/l (22.0-26.0); Methemoglobin ABG 0.3 %THb (0-1.5); Oxygen Content ABG 13.8 %vol (16.0-22.0); Oxyhemoglobin 89.6 % THb (90.0-100.0); PCO2 ABG 26.3 mmHg (35.0-45.0); PO2 ABG 67.7 mmHg (80.0-100.0); PO2 FiO2 Ratio Arterial Blood 3.22 %; Reduced Hemoglobin 9.8 %THb (0-5.0); Total Hemoglobin 10.9 g/dL (12.0-18.0)
[2023-01-23 23:12] LABS: Device ROOM AIR; Modified Allen's Test Pass; Site Drawn LEFT RADIAL; pH ABG 7.293 (7.350-7.450)
[2023-01-24] VITALS (10 sets, daily range): BP systolic 107–136; BP diastolic 71–100; PULSE 81–110; RESP 16–28; TEMP 36.2–37.4; O2SAT 92–100
[2023-01-24] MEDS: HYDROcodone/acetaminophen (*CRX) 5-325 MG TABLET 1 TAB PO ×3 (00:06→13:02)
[2023-01-24] MEDS: SODIUM BICARBONATE 8.4% 50 MEQ/50 ML SYRINGE 100 MEQ IV PUSH (00:07)
[2023-01-24] MEDS: fentaNYL CITRATE INJ (*CRX) 100 MCG/2 ML VIAL 25 MCG IV PUSH ×4 (00:59→23:53)
[2023-01-24 04:04] LABS: Hematocrit 30.9 % (37.0-47.0); Hemoglobin 9.8 g/dL (12.0-15.0); Mean Corpuscular HGB Conc 31.7 g/dl (32-36); Mean Corpuscular Hemoglobin 32.8 pg (26-34); Mean Corpuscular Volume 103.3 fl (80-100); Mean Platelet Volume 10.9 fl (7.4-10.4); Platelet Count Result 199 k/mm3 (150-375); Red Blood Count 2.99 M/mm3 (4.2-5.4); White Blood Count 17.7 K/mm3 (4.5-10.0)
[2023-01-24 04:15] LABS: Alanine Aminotransferase 19 U/L (6-35); Albumin Level 2.9 g/dL (3.5-5.1); Alkaline Phosphatase 221 U/L (38-126); Anion Gap 13 mmol/L (8-16); Aspartate Amino Transferase 30 U/L (14-36); Bilirubin,Total 0.2 mg/dL (0.2-1.3); Blood Urea Nitrogen 52 mg/dL (7-17); Calcium 6.2 mg/dL (8.4-10.2); Carbon Dioxide 14 mmol/L (22-30); Chloride 111 mmol/L (98-107); Estimated CRCL calculation 16 ml/min; Estimated Glomerular Filt Rate 15; Glucose 127 mg/dL (65-110); Magnesium 2.1 mg/dL (1.6-2.3); Potassium 2.9 mmol/L (3.4-5.0); Sodium 138 mmol/L (137-145)
[2023-01-24] MEDS: AZITHROMYCIN 500 MG/NS 250 ML 500 MG/250 ML BAG 250 MG IVPB (06:26)
[2023-01-24] MEDS: POTASSIUM CHLORIDE INJ 40 MEQ in SODIUM CHLORIDE 0.9% IV 500 ML 125 MEQ IVPB (06:26)
[2023-01-24] MEDS: LACTATED RINGERS 1,000 ML 100 ML IV CONT (06:41)
[2023-01-24] MEDS: GABAPENTIN 300 MG CAPSULE PO (09:24)
--- NOTE | 2023-01-24 09:37 | WPDCNINT ---
Assessment and Plan Assessment and plan (1) Sepsis: Code(s): A41.9 - Sepsis, unspecified organism Status: Acute Assessment and Plan: Patient presented to [facility] at [place] and with complains of cough, shortness of breath, abdominal pain, diarrhea, not feeling well, acute kidney injury, left ureteral stone with hydronephrosis -patient adequately fluid-resuscitated and transferred to ICU at [facility] -has been hemodynamically stable since she has arrived, not requiring any vasopressors -patient was started on meropenem, azithromycin and vancomycin for pyelonephritis and possible pneumonia (01/23) -01/22: Blood cultures positive for Gram-negative bacilli 2/2 bottles (identification pending) -01/23 urine and blood cultures have been obtained -01/23: MRSA screen pending pending -lactic acid is normal -not requiring any pressors (2) Acute kidney injury: Code(s): N17.9 - Acute kidney failure, unspecified Status: Acute Assessment and Plan: Acute kidney injury with creatinine of 5.4, (0.99 on 08/21/2022) -adequately fluid-resuscitated -good urine output -creatinine trending down -continue monitor urine output, renal function electrolytes -hypokalemia: Potassium being replaced (3) Left ureteral stone: Code(s): N20.1 - Calculus of ureter Status: Inactive Assessment and Plan: Left UV junction stone with hydronephrosis. Status post cystoscopy, left retrograde pyelogram, left ureteral stent placement on 01/23/23 -urology following the patient -continue antibiotics as above (4) Pneumonia: Code(s): J18.9 - Pneumonia, unspecified organism Status: Acute Assessment and Plan: Chest CT showed bilateral lower lobe airspace disease/consolidation consistent with pneumonia -continue antibiotics as above (5) Tobacco abuse: Code(s): Z72.0 - Tobacco use Status: Acute Assessment and Plan: Patient smokes 1 pack per day for many years, counseled patient on cessation of smoking to which she says she has will try after some time as she is now so will from alcohol so she was to work on one vice at a time Plan DVT prophylaxis: SCDs Stress ulcer prophylaxis: Not indicated Nutrition: Regular diet Code Status: Full code Critical Care Time Spent: 49 minutes Discussed with patient updated with her condition and plan of care. I updated with the lab and radiology reports and I answered all questions Due to a high probability of clinically significant, life threatening deterioration, the patient required my highest level of preparedness to intervene emergently and I personally spent this critical care time directly and personally managing the patient. This critical care time included obtaining a history; examining the patient; pulse oximetry; ordering and review of studies; arranging urgent treatment with development of a management plan; evaluation of patient's response to treatment; frequent reassessment; and discussions with other providers. It was exclusive of separately billable procedures and treating other patients and teaching time. Please see Assessment and Plan section and the rest of the note for further information on patient assessment and treatment This dictation may have been done utilizing a voice recognition system. Attempts have been made to correct errors. However, there may be uncorrected grammatical, spelling, and recognitions errors present. 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
[2023-01-24] MEDS: MEROPENEM 1 GM in SODIUM CHLORIDE 0.9% IV 100 ML IVPB ×2 (09:42→21:00)
--- NOTE | 2023-01-24 10:40 | PM.CNNEP ---
Assessment and Plan Assessment and plan (1) Acute kidney injury: Code(s): N17.9 - Acute kidney failure, unspecified Status: Acute Assessment and Plan: normal baseline creatinine several months ago (Jul 2022) multifactorial etiology: prerenal factors infection/sepsis obstruction (as noted by imaging) s/p aggressive IVF resuscitation creatinine improving with good urine output follow trend of repeat labs (2) Sepsis: Code(s): A41.9 - Sepsis, unspecified organism Status: Acute Assessment and Plan: as noted by presentation s/p IVF resuscitation with stable hemodynamics currently (no need for vasopressors) on broad spectrum antibiotics blood culture noted follow trend of hemodynamics (3) Left ureteral stone: Code(s): N20.1 - Calculus of ureter Status: Inactive Assessment and Plan: imaging with left UV junction stone with hydronephrosis. status post cystoscopy, left retrograde pyelogram, left ureteral stent placement on 01/23/23 by Urology Urology following continue supportive therapy (4) Pneumonia: Code(s): J18.9 - Pneumonia, unspecified organism Status: Acute Assessment and Plan: chest CT showed bilateral lower lobe airspace disease/consolidation consistent with pneumonia continue antibiotics I will continue to follow the patient with you while she remains hospitalized and make further recommendations as deemed necessary. Thank you for allowing me to participate in the care this patient. History of Present Illness Reason for Consult Consult date: 01/24/23 Reason for consult: acute renal failure Chief Complaint Chief complaint: Sepsis/Acute Kidney Injury/Lt UVJ Stone/PNA History of Present Illness Narrative: The patient is a 52-year-old female with a past medical history as outlined below who presented to [facility] with complaints of shortness of breath, low-grade fevers, and productive cough. The symptoms had been going on for a while but as they seem to be progressively getting worse, she came to the outside hospital emergency room for further assessment. Subsequent workup and evaluation at that time demonstrated acute kidney injury with a creatinine of 5.4 in association with a metabolic acidosis. Subsequent imaging demonstrated a left ureteral stone causing hydronephrosis. She was subsequent transferred to [facility] in [place] for further evaluation and treatment but apparently left AMA only to return back to the ER a [facility] the next day with worsening shortness of breath, headaches, cough and ?just not feeling well. She was subsequently aggressively fluid resuscitated and transferred to [facility] IMU. Urology was consulted she was taken to the OR with subsequent cystoscopy and left ureteral stent placement. Upon arrival to the ICU, the patient was hemodynamically stable without the need for vasopressor therapy. She continued do well overnight with stability in her blood pressure and improvement in her symptoms that led to her admission. Renal consultation was requested due to her acute kidney injury/acute renal failure. Her renal function has already improved with current interventions with her creatinine coming down from 5.4 down to 2.3 mg/dL by labs done this morning. She continues to make very good urine output at this time as well. The presumed etiology of her acute kidney injury is that of the obstruction and possible early infection/sepsis that was treated aggressively with IV fluid resuscitation and antibiotic therapy. Currently, at the time my visit, she appears to be in no acute distress. Review of Systems Review of Systems: As per HPI. [facility] Past Medical History Medical History Acute pancreatitis (09/01/19) Alcoholic peripheral neuropathy Anxiety and depression Cerebrova
[2023-01-24] MEDS: KCL 20 MEQ/SW 100 ML 50 MEQ IVPB (11:20)
--- NOTE | 2023-01-24 11:41 | PM.IMPN ---
Progress Note: A&P Assessment and Plan (1) Sepsis: Code(s): A41.9 - Sepsis, unspecified organism Status: Acute Assessment and Plan: Patient presented to [facility] [place] and with complains of cough, shortness of breath, abdominal pain, diarrhea, not feeling well, acute kidney injury, left ureteral stone with hydronephrosis -patient adequately fluid-resuscitated and transferred to ICU at [facility] -has been hemodynamically stable since she has arrived, not requiring any vasopressors -patient was started on meropenem, azithromycin and vancomycin for pyelonephritis and possible pneumonia (01/23) -01/22: Blood cultures positive for Gram-negative bacilli 2/2 bottles (identification pending) -01/23 urine and blood cultures have been obtained -01/23: MRSA screen pending pending -lactic acid is normal -not requiring any pressors (2) Acute kidney injury: Code(s): N17.9 - Acute kidney failure, unspecified Status: Acute Assessment and Plan: Acute kidney injury with creatinine of 5.4, (0.99 on 08/21/2022) -adequately fluid-resuscitated -good urine output -creatinine trending down -continue monitor urine output, renal function electrolytes -hypokalemia: Potassium being replaced (3) Left ureteral stone: Code(s): N20.1 - Calculus of ureter Status: Inactive Assessment and Plan: Left UV junction stone with hydronephrosis. Status post cystoscopy, left retrograde pyelogram, left ureteral stent placement on 01/23/23 -urology following the patient -continue antibiotics as above (4) Pneumonia: Code(s): J18.9 - Pneumonia, unspecified organism Status: Acute Assessment and Plan: Chest CT showed bilateral lower lobe airspace disease/consolidation consistent with pneumonia -continue antibiotics as above (5) Tobacco abuse: Code(s): Z72.0 - Tobacco use Status: Acute Assessment and Plan: Patient smokes 1 pack per day for many years, counseled patient on cessation of smoking to which she says she has will try after some time as she is now so will from alcohol so she was to work on one vice at a time Plan DVT prophylaxis: SCDs Stress ulcer prophylaxis: Not indicated Nutrition: Regular diet Code Status: Full code Critical Care Time Spent: 49 minutes Discussed with patient updated with her condition and plan of care. I updated with the lab and radiology reports and I answered all questions Due to a high probability of clinically significant, life threatening deterioration, the patient required my highest level of preparedness to intervene emergently and I personally spent this critical care time directly and personally managing the patient. This critical care time included obtaining a history; examining the patient; pulse oximetry; ordering and review of studies; arranging urgent treatment with development of a management plan; evaluation of patient's response to treatment; frequent reassessment; and discussions with other providers. It was exclusive of separately billable procedures and treating other patients and teaching time. Please see Assessment and Plan section and the rest of the note for further information on patient assessment and treatment This dictation may have been done utilizing a voice recognition system. Attempts have been made to correct errors. However, there may be uncorrected grammatical, spelling, and recognitions errors present. Subjective Date/time seen: 01/24/23 11:41 Interval history: No complaints, feeling better Exam Narrative: General: Pleasant female in no acute distress HEENT:? Pupils equal and reactive, sclera is clear, moist oral mucosa Neck:? Supple Respiratory:? Adequate air entry, coarse breath sounds on the bases bilaterally, no wheezing Cardiac:? S1-S2 normal, regular rate and rhythm Abdomen:? Soft, nontender, nondistended, normoactive bowel sounds Extremities:? Palpable pedal pulses, no e
--- NOTE | 2023-01-24 11:48 | WPDUROPN2 ---
Progress Note: A&P Assessment and Plan (1) Urinary tract infection: Code(s): N39.0 - Urinary tract infection, site not specified Status: Acute (2) Acute kidney injury: Code(s): N17.9 - Acute kidney failure, unspecified Status: Acute (3) Sepsis: Code(s): A41.9 - Sepsis, unspecified organism Status: Acute (4) Ureteral calculi: Code(s): N20.1 - Calculus of ureter Status: Acute Assessment and Plan: pod #1 s/p cysto RPG, left stent placement Cr and WBC improving, culture P. -clinically improving. -monitor serial wbc and Cr continue empiric abx - pt understands stent is temporary and she still needs definite stone treatment after infection has been treated Subjective Subjective Date/Time Seen: 01/24/23 11:48 Interval history: feels better. NAEO. getting transferred out of ICU. Review of Systems Constitutional: Constitutional: Reports no additional constitutional complaints Eyes: Eyes: Reports no additional eye complaints ENT: Reports system reviewed and no additional complaints, except as documented Cardiovascular: Cardiovascular: Reports as per HPI Respiratory: Respiratory: Reports no additional respiratory complaints Gastrointestinal: Gastrointestinal: Reports no additional gastrointestinal complaints Genitourinary: Genitourinary: Reports no additional female genitourinary complaints Musculoskeletal: Musculoskeletal: Reports no additional musculoskeletal complaints Integumentary/Breasts: Skin/Breast: Reports system reviewed and no additional complaints, except as docu Psychiatric: Psychiatric: Reports no additional psychiatric complaints Exam Const: General: comfortable and no acute distress HENMT: Face/Nose/Sinus: Normal nares present Eyes: General: appearance normal, both eyes and all related structures Resp: Effort & Inspection: normal respiratory effort Cardio: Rate: regular rate GI: Inspection: non-distended GI Palp: Yes Soft to palpation and No Tenderness to palpation present (GI) Skin: General skin exam: normal color Neuro: General: gait normal Objective Data Vital Signs Vital Signs: Vital Signs - 24 hr 01/23/23 18:39 01/23/23 20:00 01/23/23 20:00 Temperature 36.9 C 36.9 C Pulse Rate 93 92 Respiratory Rate 31 H 24 H Blood Pressure 102/70 104/80 Pulse Oximetry 95 98 98 Oxygen Delivery Room Air 01/23/23 20:00 01/23/23 22:00 01/23/23 22:00 Temperature Pulse Rate 92 89 89 Respiratory Rate 20 Blood Pressure 117/69 Pulse Oximetry 97 Oxygen Delivery 01/23/23 23:00 01/23/23 23:08 01/24/23 00:00 Temperature Pulse Rate 88 Respiratory Rate 17 Blood Pressure 107/77 Pulse Oximetry 95 93 100 Oxygen Delivery Room Air Room Air 01/24/23 00:00 01/24/23 00:00 01/24/23 02:00 Temperature 37.2 C Pulse Rate 92 92 104 H Respiratory Rate 17 Blood Pressure 133/100 H Pulse Oximetry 100 Oxygen Delivery 01/24/23 02:00 01/24/23 04:00 01/24/23 04:00 Temperature Pulse Rate 104 H 101 H Respiratory Rate 18 Blood Pressure 129/76 Pulse Oximetry 94 93 Oxygen Delivery Room Air 01/24/23 04:00 01/24/23 06:00 01/24/23 06:00 Temperature 37.2 C Pulse Rate 101 H 97 99 Respiratory Rate 16 24 H Blood Pressure 114/78 121/81 Pulse Oximetry 93 94 Oxygen Delivery Intake/Output Intake/Output: Intake & Output 01/21/23 01/22/23 01/23/23 01/24/23 23:59 23:59 23:59 23:59 Intake Total 350 1580 Output Total 1800 Balance 350 -220 Meds/Results Medications: Active Medications Generic Name Dose Route Start Last Admin Trade Name Freq PRN Reason Stop Dose Admin Acetaminophen 650 mg 01/23/23 22:40 Acetaminophen 325 Mg Tablet PO Q6H PRN Mild Pain (1-3) or Fever Hydrocodone Bitart/Acetaminophen 1 tab 01/23/23 22:40 01/24/23 06:40 Hydrocodone/Acetaminophen (*Crx) 5-325 Mg Tablet PO 1 tab Q6H PRN Administration
[2023-01-24] MEDS: GABAPENTIN 300 MG CAPSULE 600 MG PO ×2 (13:01→17:15)
--- NOTE | 2023-01-24 19:58 | PC.NURSE ---
This patient, Dinah Batres, was transferred to [facility] on 01/24/23 at 1958. Personal belongings sent with patient. Report given to STACEY Abbott. Appropriate documentation sent with patient.
[2023-01-24 21:33] LABS: Vancomycin Random 8.3 ug/mL (10-20)
[2023-01-24] MEDS: VANCOMYCIN 1,000 MG/NS 250 ML 1,000 MG/250 ML BAG 250 MG IVPB (23:38)
[2023-01-25] MEDS: fentaNYL CITRATE INJ (*CRX) 100 MCG/2 ML VIAL 25 MCG IV PUSH (03:10)
[2023-01-25 06:00] VITALS: BP 125/82; PULSE 75; RESP 18; TEMP 36.7; O2SAT 91
[2023-01-25] MEDS: AZITHROMYCIN 500 MG/NS 250 ML 500 MG/250 ML BAG 250 MG IVPB (06:40)
[2023-01-25 06:59] LABS: Basophils Absolute Auto 0.1 K/mm3 (0.0-0.1); Basophils Percent Auto 0.9 % (0.2-1.2); Eosinophils Absolute Auto 0.3 K/mm3 (0-0.3); Eosinophils Percent Auto 1.9 % (0-4.4); Hematocrit 30.6 % (37.0-47.0); Hemoglobin 9.7 g/dL (12.0-15.0); Immature Granulocyte Absolute 0.15 K/mm3 (0.00-0.031); Immature Granulocyte Percent A 1.1 % (0-0.5); Lymphocytes Percent Auto 8.4 % (18.3-44.2); Mean Corpuscular HGB Conc 31.7 g/dl (32-36); Mean Corpuscular Hemoglobin 32.9 pg (26-34); Mean Corpuscular Volume 103.7 fl (80-100); Monocytes Absolute Auto 1.4 K/mm3 (0.1-0.6); Monocytes Percent Auto 10.6 % (2.6-8.5); Neutrophils Absolute Auto 10.1 K/mm3 (1.3-6.7); Neutrophils Percent Auto 77.1 % (45.5-73.1); Platelet Count Result 168 k/mm3 (150-375); Red Blood Count 2.95 M/mm3 (4.2-5.4); Red Cell Distribution Width 15.6 % (11.5-14.5); White Blood Count 13.1 K/mm3 (4.5-10.0)
[2023-01-25 07:09] LABS: Lactic Acid Reflex 1.1 mmol/L (0.7-2.0)
[2023-01-25 07:21] LABS: Alanine Aminotransferase 21 U/L (6-35); Alkaline Phosphatase 295 U/L (38-126); Anion Gap 12 mmol/L (8-16); Aspartate Amino Transferase 33 U/L (14-36); Bilirubin,Total 0.4 mg/dL (0.2-1.3); Blood Urea Nitrogen 32 mg/dL (7-17); Carbon Dioxide 14 mmol/L (22-30); Chloride 114 mmol/L (98-107); Estimated CRCL calculation 25 ml/min; Estimated Glomerular Filt Rate 22; Glucose 93 mg/dL (65-110); Magnesium 1.5 mg/dL (1.6-2.3); Phosphorus 3.3 mg/dL (2.5-4.5); Potassium 3.2 mmol/L (3.4-5.0); Sodium 140 mmol/L (137-145)
[2023-01-25 07:30] LABS: CRP 18.5 mg/dL (<1.0)
[2023-01-25 08:00] VITALS: PULSE 75; RESP 18; O2SAT 91
[2023-01-25] MEDS: MEROPENEM 1 GM in SODIUM CHLORIDE 0.9% IV 100 ML IVPB (08:14)
[2023-01-25] MEDS: GABAPENTIN 300 MG CAPSULE 600 MG PO (08:16)
[2023-01-25] MEDS: HYDROcodone/acetaminophen (*CRX) 5-325 MG TABLET 1 TAB PO (08:24)
--- NOTE | 2023-01-25 11:15 | PM.DS ---
DS: Admitting Diagnosis Discharge Date January 25, 2023 Admitting Diagnosis Ureteral stent placement for stone. UTI DS: Discharge Diagnosis Discharge Diagnosis (1) Sepsis: Code(s): A41.9 - Sepsis, unspecified organism Status: Acute Assessment and Plan: Patient meets sepsis criteria with hypotension, tachycardia, leukocytosis with bandemia, and acute kidney injury. Blood pressures have improved with aggressive IV fluid rehydration. Source includes pneumonia and urine infection related to ureteral stone. Blood, urine, and sputum cultures ordered. (2) Urinary tract infection: Code(s): N39.0 - Urinary tract infection, site not specified Status: Acute Assessment and Plan: Continue broad-spectrum antibiotics including vancomycin and meropenem pending culture. (3) Pneumonia: Code(s): J18.9 - Pneumonia, unspecified organism Status: Acute Assessment and Plan: Currently on azithromycin, meropenem, and vancomycin. Attempt sputum for culture. Check urinary Legionella and pneumococcal antigens as well as mycoplasma IgM. (4) Acute kidney injury: Code(s): N17.9 - Acute kidney failure, unspecified Status: Acute Assessment and Plan: Likely multifactorial in etiology to include hypoperfusion from hypotension, hypovolemia from dehydration, ATN from sepsis, and ureteral stone in addition to significant ibuprofen use. [place] catheter inserted for strict I/O. Renal ultrasound ordered. Nephrology has been consulted and their input is greatly appreciated. (5) Left ureteral stone: Code(s): N20.1 - Calculus of ureter Status: Inactive Assessment and Plan: Patient is to go to the OR [facility] for cystoscopy with ureteral stent placement. (6) Peripheral neuropathy: Code(s): G62.9 - Polyneuropathy, unspecified Status: Acute Assessment and Plan: Continue gabapentin at decreased dose due to renal failure. Duloxetine contraindicated given renal failure. We discussed that she will need to find an alternative to ibuprofen to treat her pain. DS: Summary Hospital Course Hospital Course: Admitted for ureteral stone w stent placement and uti sepsis noted on admission Patient will be dc on antibiotics for pna and for uti. Doing normal activities and able to be dc Fu urology Time Spent with Patient Time attestation: Total time spent providing and/or coordinating discharge services: Exam Narrative: General: Pleasant female in no acute distress HEENT:? Pupils equal and reactive, sclera is clear, moist oral mucosa Neck:? Supple Respiratory:? Adequate air entry, coarse breath sounds on the bases bilaterally, no wheezing Cardiac:? S1-S2 normal, regular rate and rhythm Abdomen:? Soft, nontender, nondistended, normoactive bowel sounds Extremities:? Palpable pedal pulses, no edema Neuro:? Alert, awake, oriented x3, follows simple commands and answers to questions appropriately Skin:? Multiple tattoos noted, warm and dry Psych:? Anxious DS: Data Data Completed and Pending Labs on day of discharge: Labs from last 24 hours 01/25/23 01/24/23 06:27 21:08 WBC 13.1 H RBC 2.95 L Hgb 9.7 L Hct 30.6 L MCV 103.7 H MCH 32.9 MCHC 31.7 L RDW 15.6 H Plt Count 168 MPV 11.0 H Immature Gran % (Auto) 1.1 H Neut % (Auto) 77.1 H Lymph % (Auto) 8.4 L [place] % (Auto) 10.6 H Eos % (Auto) 1.9 Baso % (Auto) 0.9 Lymph # (Auto) 1.10 [place] # (Auto) 1.4 H Eos # (Auto) 0.3 Baso # (Auto) 0.1 Abs Immat Gran (auto) 0.15 H Absolute Neuts (auto) 10.1 H Absolute Nucleated RBC 0.0 Nucleated RBC % 0.0 Sodium 140 Potassium 3.2 L Chloride 114 H Carbon Dioxide 14 L Anion Gap 12 BUN 32 H D Creatinine 2.30 H Estim Creat Clear Calc 25 Estimated GFR 22 L Glucose 93 Lactic Acid 1.1 Calcium 7.0 L Phosphorus 3.3 Magnesium 1.5 L Total Bilirubin 0.4 AST 33 ALT 21 Alkal
--- NOTE | 2023-01-25 13:16 | WPDUROPN2 ---
Progress Note: A&P Assessment and Plan (1) Ureteral calculi: Code(s): N20.1 - Calculus of ureter Status: Acute Assessment and Plan: Will plan to remove stone as an outpatient once infection has resolved via ureteroscopy. Patient to f/u in the office in a week for a repeat urine culture. (2) Urinary tract infection: Code(s): N39.0 - Urinary tract infection, site not specified Status: Acute Assessment and Plan: Ok to discharge when stable on culture appropriate antibiotics. Subjective Subjective Date/Time Seen: 01/25/23 13:16 POD#2 Cystoscopy, RPG, left stent placement. CT shows an 8mm distal left UVJ stone She is doing well and has no complaints regarding her stent. ASHLY repeat on 01/24/23 showing resolution of hydronephrosis. Urine and blood cultures pending, she is afebrile. Post Op day: 2 Review of Systems Cardiovascular: Cardiovascular: Denies chest pain Respiratory: Respiratory: Reports no additional respiratory complaints Gastrointestinal: Gastrointestinal: Denies abdominal pain, Denies nausea and Denies vomiting Genitourinary: Genitourinary: Reports no additional female genitourinary complaints Exam Const: General: cooperative; No comfortable Resp: Effort & Inspection: normal respiratory effort Cardio: Rate: regular rate GI: GI Palp: Yes Soft to palpation and No Tenderness to palpation present (GI) : General: Yes no CVA tenderness Extrem: Right lower extremity: no edema Left lower extremity: no edema Objective Data Vital Signs Vital Signs: Vital Signs - 24 hr 01/24/23 14:00 01/24/23 16:00 01/24/23 22:14 Temperature 99.4 F 97.1 F L Pulse Rate 95 109 H 81 Respiratory Rate 28 H 24 H 18 Blood Pressure 107/71 116/78 136/75 Pulse Oximetry 95 92 93 Oxygen Delivery 01/24/23 20:00 01/25/23 06:00 01/25/23 08:00 Temperature 98.1 F Pulse Rate 75 75 Respiratory Rate 18 18 Blood Pressure 125/82 Pulse Oximetry 91 91 Oxygen Delivery Room Air Room Air Intake/Output Intake/Output: Intake & Output 01/22/23 01/23/23 01/24/23 01/25/23 23:59 23:59 23:59 23:59 Intake Total 350 3280 2132 Output Total 3075 500 Balance 085 032 1338 Meds/Results Radiology Results: ITS Impressions Retrograde Pyelogram 01/24/23 14:44 IMPRESSION: Fluoroscopic documentation of left-sided retrograde pyelography with stent placement. Please refer to the operative note for complete procedural details . Renal Ultrasound 01/24/23 14:46 IMPRESSION: Mild right atrophy. Left ureteral stent. No hydronephrosis. Labs Labs: Laboratory Results - last 24 hr 01/24/23 01/25/23 21:08 06:27 WBC 13.1 H RBC 2.95 L Hgb 9.7 L Hct 30.6 L MCV 103.7 H MCH 32.9 MCHC 31.7 L RDW 15.6 H Plt Count 168 MPV 11.0 H Immature Gran % (Auto) 1.1 H Neut % (Auto) 77.1 H Lymph % (Auto) 8.4 L [place] % (Auto) 10.6 H Eos % (Auto) 1.9 Baso % (Auto) 0.9 Lymph # (Auto) 1.10 [place] # (Auto) 1.4 H Eos # (Auto) 0.3 Baso # (Auto) 0.1 Abs Immat Gran (auto) 0.15 H Absolute Neuts (auto) 10.1 H Absolute Nucleated RBC 0.0 Nucleated RBC % 0.0 Sodium 140 Potassium 3.2 L Chloride 114 H Carbon Dioxide 14 L Anion Gap 12 BUN 32 H D Creatinine 2.30 H Estim Creat Clear Calc 25 Estimated GFR 22 L Glucose 93 Lactic Acid 1.1 Calcium 7.0 L Phosphorus 3.3 Magnesium 1.5 L Total Bilirubin 0.4 AST 33 ALT 21 Alkaline Phosphatase 295 H C-Reactive Protein 18.5 H Total Protein 6.0 L Albumin 3.0 L Random Vancomycin 8.3 L Imaging Attestation: I personally reviewed and interpreted this imaging study as follows: Radiologist's impression: 8mm left distall ureteral stone
[2023-01-27 05:19] LABS: Legionella pneumophila Ag Ur Not Detected (Not Detected)
[2023-01-27 15:38] LABS: Pneumococcal Antigen Urine Not Detected (Not Detected)
[2023-01-28 13:28] LABS: Mycoplasma IgM Antibody Titer 176 U/mL (<770)
== END 2023-01-25 12:17 | disposition home or self-care (01) | DRG 720 ==
LOC: ANHICU 18:52 → ANH3MEDSUR 01-24 20:19
PROVIDERS: Internal Medicine; Physician Assistant; Urology; Admitting Provider Student in an Organized Health Care Education/Training Program; PCP Internal Medicine; Visit Provider Chiropractor
PROC: BT1F1ZZ Fluoroscopy of Left Kidney, Ureter and Bladder using Low Osmolar Contrast (ICD-10-PCS; CPT 52352; principal; 2023-01-23 23:00)
DX: A41.50 Gram-negative sepsis, unspecified (principal); N17.9 Acute kidney failure, unspecified; J18.9 Pneumonia, unspecified organism; G62.1 Alcoholic polyneuropathy; N13.6 Pyonephrosis; J44.0 Chronic obstructive pulmonary disease with (acute) lower respiratory infection; I25.10 Atherosclerotic heart disease of native coronary artery without angina pectoris; E87.6 Hypokalemia; E78.5 Hyperlipidemia, unspecified; K21.9 Gastro-esophageal reflux disease without esophagitis; K44.9 Diaphragmatic hernia without obstruction or gangrene; G89.29 Other chronic pain; F10.21 Alcohol dependence, in remission; F41.9 Anxiety disorder, unspecified; F32.A Depression, unspecified; F12.90 Cannabis use, unspecified, uncomplicated; F17.210 Nicotine dependence, cigarettes, uncomplicated; I69.354 Hemiplegia and hemiparesis following cerebral infarction affecting left non-dominant side; Z79.82 Long term (current) use of aspirin; Z79.1 Long term (current) use of non-steroidal anti-inflammatories (NSAID)
CPT/HCPCS: 36415; 36600; 74420; 76775; 80048; 80053; 80202; 82375; 82550; 82805; 83050; 83605; 83735; 84100; 85025; 85027; 86140; 86738; 87070; 87081; 87086; 87205; 87449; 87899; A9270; C1758; C1769; C2617; J0456; J2185; J2250; J3010; J3370; J3480; J7040; J7120; Q9966

== ENCOUNTER 2023-01-26 03:32 | Emergency (ER) | payer OTHER, SELFPAY ==
[2023-01-26] VITALS (9 sets, daily range): BP systolic 108–158; BP diastolic 62–98; PULSE 99–108; RESP 20–25; TEMP 36.6–37.2; O2SAT 88–100
--- NOTE | ~2023-01-26 | XR_ITS ---
Portable chest x-ray Comparison: 01/22/2023 Clinical History: Dyspnea Findings: There is with extensive hazy right upper lobe airspace disease. Left lung remains essentia lly clear. No pleural effusion. Cardiomediastinal silhouette is stable. Bones and soft tissues are u nremarkable. Impression: Extensive right upper lobe airspace disease. Correlate for pneumonia versus asymmetric pulmonary su a. Reviewed, dictated and finalized at location M. Impression: Extensive right upper lobe airspace disease. Correlate for pneumonia versus asy mmetric pulmonary edema.
--- NOTE | ~2023-01-26 | CT_ITS ---
Non-contrast Head CT History: Paresthesia COMPARISON: 10/30/2020 Technique: Axial non-contrast imaging of the brain was performed. Dose reduction technique was used on this scan by utilizing automated exposure control and iterative reconstruction technique. The dose -length product (DLP) was 681.00 mGy-cm. Findings: There is no evidence of intracranial hemorrhage, mass lesion, or acute infarct. 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 The ventricles and subarachnoid spaces are normal in size. The calvarium appears normal. The visualized paranasal sinuses and mastoid air cells are clear. Impression: No acute abnormality seen. Focal chronic infarct left cerebellum. Reviewed, dictated and finalized at location . Impression: No acute abnormality seen. Focal chronic infarct left cerebellum.
[2023-01-26 03:43] LABS: Glucose Point of Care 101 mg/dl (65-105)
--- NOTE | 2023-01-26 04:14 | ED.GENADULT ---
HPI - General Adult General Chief complaint: Neuro Symptoms/Deficit Stated complaint: SOB Time Seen by Provider: 01/26/23 04:00 History of Present Illness HPI narrative: the patient is a 52-year-old woman with multiple medical conditions including alcoholism, chronic alcohol use, chronic cigarette use, subdural hematoma, chronic pancreatitis, hyperlipidemia, arthritis, diastolic dysfunction, negative stress test 2020, peripheral neuropathy, COPD but does not use oxygen at home, prior stroke with left-sided weakness at baseline, GERD. She is on aspirin 81 mg daily but has not taken this for 3 weeks. She saw her primary care provider recently for not feeling well. Blood work was ordered on 01/22/2023. This revealed acute kidney injury with a BUN of 53 and a creatinine of 5.4 from normal BUN and creatinine at baseline. She was acidotic with a bicarb of 14. COVID-19, influenza and strep was negative. [place] white blood [place] [address]. She was advised to come to the emergency room. She had blood and urine tests at [facility] on 01/22/2023: She was hoarse. Chest x-ray revealed bibasilar pneumonia. She was diagnosed with sepsis pneumonia and acute kidney injury. She signed out against medical advice from [facility]. She came to [facility] that night on 01/22/2023. she was hypotensive with a blood pressure as low as 65/44, with cough, shortness of breath, headache. She had another workup. She received IV fluids. She was diagnosed with sepsis, bibasilar pneumonia, septic shock with hypotension, left ureteral stone, acute kidney failure, with metabolic acidosis. She again left against medical advise from [facility]. she then presented the next day, 01/23/2023, to [facility], not feeling well. She was diagnosed with the same, pneumonia, acute kidney injury, left ureteral stone. She was transferred to [facility] for further management. She received IV fluids and IV antibiotics. She was admitted at [facility] from 01/23/2023 until 01/25/2023 and received IV antibiotics initially vancomycin meropenem and azithromycin. She was discharged yesterday, 01/25/2023 on Bactrim. She underwent stenting of the left ureter due to the 6 mm ureteral stone. Her labs at discharge were as follows: White blood cell count [id number], left shift with 77% neutrophils. Hemoglobin 9.7. Potassium 3.2. BUN 32. Creatinine 2.3. Bicarbonate 14. Calcium 7.0. Magnesium 1.5. CRP 18.5. Albumin 3.0. She had an oxygen saturation of 91% on room air at [facility] on 01/25/2023. She was doing reasonably well yesterday afternoon (after hospital discharge) but did notice swelling of the lower extremities bilaterally. She went to sleep at 9:30 p.m. and had reasonable function of her right hand. She woke up at midnight, four hours ago, and had weakness of the right hand. She has chronic numbness of the upper and lower extremities and no new sensory deficits. She attributes the numbness to peripheral neuropathy. Her throat is very dry and hoarse; she is whispering which is similar to the last few days but a bit worse. She does have a headache. She report no nausea or vomiting. No chest pain or abdominal pain. No fevers or chills. She also complains of shortness of breath. She does smoke cigarettes. She does have a chronic cough. Related Data Home Medications Medication Instructions Recorded Confirmed duloxetine 30 mg capsule,delayed 60 mg PO BID 11/12/20 01/26/23 release aspirin 81 mg tablet,delayed 81 mg PO DAILY 03/24/21 01/26/23 release (Adult Low Dose Aspirin) omega 1-txd-oly-fish oil 1,000 mg 1 cap PO DAILY 04/06/22 01/26/23 (120 mg-180 mg) capsule (Fish Oil) atorvastatin 40 mg tablet 40 mg PO DAILY 01/23/23 01/26/23 gabapentin 400 mg capsule 1,200 mg PO TID 01/23/23 01/26/23 ysxhmche-bdz-puscg ac 400 1 tablet PO DAILY 01/24/23 01/26/23 mcg-calcium carb 500 mg-vit K1 20 mcg tablet Aller
--- NOTE | 2023-01-26 04:30 | ECG_ITS ---
Measurements Intervals [place] Rate: 100 P: 60 OK: 132 QRS: 68 QRSD: 97 T: 52 QT: 326 QTc: 421 Interpretive Statements SINUS TACHYCARDIA POSSIBLE LEFT ATRIAL ENLARGEMENT [-0.1mV P-WAVE IN V1/V2] ABNORMAL RHYTHM ECG COMPARED TO ECG 01/22/2023 20:58:00 NO SIGNIFICANT CHANGES Electronically Signed On 01-26-2023 14:03:37 CDT by Shakira Nix M.D.
--- NOTE | 2023-01-26 04:41 | PC.NURSE ---
turned oxygen off at 0415, does not want on
[2023-01-26 04:52] LABS: Base Excess ABG -8.2 mmol/L (0-2); HCO3 ABG 15.3 mmol/L (23-29); Oxygen Content ABG 12.6 %vol (16.0-22.0); Oxygen Saturation ABG 86.6 % (95-97); Oxyhemoglobin 84.4 % (94-100); PCO2 ABG 25.8 mmHg (35-45); Total Hemoglobin 10.6 g/dL (12.0-18.0); pH ABG 7.39 (7.35-7.45)
[2023-01-26 04:53] LABS: Basophils Absolute Auto 0.06 K/mm3 (0.00-0.10); Basophils Percent Auto 0.5 % (0.0-1.0); Eosinophils Percent Auto 2.4 % (1.0-6.0); Hematocrit 31.7 % (35.0-49.0); Hemoglobin 10.3 g/dL (12.0-15.0); Immature Granulocyte Absolute 0.17 K/mm3 (0.00-0.00); Immature Granulocyte Percent A 1.4 % (0.0-0.0); Lymphocytes Absolute Auto 1.13 K/mm3 (1.10-4.50); Lymphocytes Percent Auto 9.2 % (18.0-42.0); Mean Corpuscular HGB Conc 32.5 g/dL (32.0-36.0); Mean Corpuscular Hemoglobin 33.4 pg (27.0-31.0); Mean Corpuscular Volume 102.9 fL (78.0-102.0); Mean Platelet Volume 10.5 fl (9.2-11.8); Monocytes Absolute Auto 1.32 K/mm3 (0.10-0.90); Monocytes Percent Auto 10.7 % (2.0-11.0); Neutrophils Absolute Auto 9.3 K/mm3 (1.7-7.2); Neutrophils Percent Auto 75.8 % (50.0-70.0); Platelet Count Result 187 K/mm3 (150-420); Red Blood Count 3.08 M/mm3 (4.20-5.40); Red Cell Distribution Width 15.4 % (11.6-14.4); White Blood Count 12.3 K/mm3 (4.8-10.8)
[2023-01-26 04:56] LABS: Device ROOM AIR; Modified Allen's Test Pass; Site Drawn LEFT RADIAL
[2023-01-26 05:08] LABS: Appearance Urine Clear (Clear); Bilirubin Urine Negative (Negative); Blood Urine 3+ (Negative); Color Urine Light Yellow (Yellow); Glucose Urine UA Negative (Negative); Ketones Urine Negative (Negative); Leukocyte Esterase Ur 1+ LEU/UL (Negative); Nitrate Urine Negative (Negative); Protein Urine 2+ (Negative); Specific Grav Ur 1.015 (1.010-1.020); Urobilinogen Urine 0.2 mg/dL (0.2-1.0)
[2023-01-26 05:08] LABS: INR 1.2; Partial Thromboplastin Time 35.4 SEC (23.90-30.70); Prothrombin Time 12.5 Seconds (9.50-12.10)
[2023-01-26 05:11] LABS: Alanine Aminotransferase 24 U/L (14-59); Alkaline Phosphatase 244 U/L (46-116); Anion Gap 16 mmol/L (8-16); Aspartate Amino Transferase 16 U/L (15-37); Bilirubin,Total 0.4 mg/dL (0.00-1.00); Blood Urea Nitrogen 31 mg/dL (7-18); Calcium 7.8 mg/dL (8.5-10.1); Carbon Dioxide 20 mmol/L (21-32); Chloride 106 mmol/L (98-108); Estimated CRCL calculation 24 ml/min; Estimated Glomerular Filt Rate 26; Glucose 92 mg/dL (70-99); Magnesium 1.4 mg/dL (1.8-2.4); Osmolality Calculated 300 mOsm/kg (285-295); Potassium 2.9 mmol/L (3.5-5.1); Sodium 142 mmol/L (136-145); Total Protein 6.4 g/dL (6.4-8.2); Troponin I 9.7 ng/L (0.00-60.4)
[2023-01-26 05:15] LABS: Lactic Acid Reflex 1.1 mmol/L (0.4-2.0)
[2023-01-26] MEDS: ASPIRIN 81 MG CHEWABLE TABLET 324 MG PO (05:15)
[2023-01-26 05:16] LABS: Bacteria Urine Trace /hpf; RBC Urine >75 /hpf (0-2); Squamous Epithelial Cell Urine None seen /hpf (Few)
[2023-01-26 05:17] LABS: CRP 21.8 mg/dL (0.0-0.9)
[2023-01-26] MEDS: MEROPENEM 1 GM in SODIUM CHLORIDE 0.9% IV 100 ML 200 ML IVPB (05:20)
[2023-01-26 05:25] LABS: Amphetamine Screen Urine Negative (Negative); Barbiturate Screen Urine Negative (Negative); Benzodiazepines Screen Urine Negative (Negative); Cannabinoid Screen Urine Negative (Negative); Cocaine Screen Urine Negative (Negative); Methadone Screen Urine Negative (Negative); Opiate Screen Urine Positive (Negative); Phencyclidine Screen Urine Negative (Negative)
[2023-01-26] MEDS: AZITHROMYCIN 500 MG/NS 250 ML 500 MG/250 ML BAG 250 MG IVPB (05:30)
[2023-01-26] MEDS: MAGNESIUM SULF 2 GM/WATER 50ML 2 GM/50 ML BAG IVPB (05:30)
[2023-01-26] MEDS: VANCOMYCIN 1,000 MG/NS 250 ML 1,000 MG/250 ML BAG 250 MG IVPB (05:30)
[2023-01-26 06:01] LABS: Erythrocyte Sedimentation Rate 56 mm/hr (0-20)
[2023-01-26] MEDS: POTASSIUM BICARBONATE 25 MEQ TABEF 50 MEQ PO (06:11)
--- NOTE | 2023-01-26 12:44 | PC.NURSE ---
FINAL BLOOD CULTURE RESULT AEROBIC BOTTLE ONLY RECEIVED ISOLATE 1 ESCHERICHIA COLI, PER DR Retana [facility] NOTIFIED, SPOKE WITH STACEY LANDRY WHO HAS ALREADY RECEIVED THE BLOOD CULTURE, SENSITIVITIES, AND URINE CULTURE RESULTS, ANTIBIOTICS WERE ADJUSTED AT [facility]. URINE CULTURE RESULTS- ISOLATE 1: GREATER THAN 100,000 CFU/ML OF ESCHERICHIA COLI [facility] IS AWARE.
--- NOTE | 2023-01-28 14:41 | PC.NURSE ---
reviewed urine culture , no growth.
== END 2023-01-26 07:06 | disposition short-term general hospital (02) ==
PROVIDERS: Emergency Provider Emergency Medicine; PCP Internal Medicine
DX: J16.8 Pneumonia due to other specified infectious organisms (principal); N39.0 Urinary tract infection, site not specified; E83.42 Hypomagnesemia; N18.9 Chronic kidney disease, unspecified; E87.6 Hypokalemia; R09.02 Hypoxemia; E78.5 Hyperlipidemia, unspecified; I69.354 Hemiplegia and hemiparesis following cerebral infarction affecting left non-dominant side; I25.10 Atherosclerotic heart disease of native coronary artery without angina pectoris; J44.9 Chronic obstructive pulmonary disease, unspecified; F17.210 Nicotine dependence, cigarettes, uncomplicated; Z79.82 Long term (current) use of aspirin
CPT/HCPCS: 36415; 36600; 70450; 71045; 80053; 80307; 82805; 82948; 83605; 83735; 84484; 85025; 85610; 85652; 85730; 86140; 87086; 93005; 96365; 96367; 96368; 99285; A9270; J0456; J2185; J3370; J3475

== ENCOUNTER 2023-02-09 15:23 | Outpatient (CLI) | payer OTHER, SELFPAY ==
--- NOTE | ~2023-02-09 | XR_ITS ---
EXAM: XR knee RT 3V DATE: 02/09/2023 15:54 HISTORY: R KNEE PAIN AND SWELLING/UNABLE TO BEAR WEIGHT/NO TRAUMA . COMPARISON: 08/21/2022. FINDINGS: Decreased mineralization. No fracture or dislocation. No lytic or blastic lesion. Mild med ial and lateral joint space narrowing. Tricompartmental osteophytosis, moderate in the medial and lat eral compartments. No erosion or periosteal change. Soft tissues within normal limits. Large volume j oint fluid. IMPRESSION: Moderate right knee osteoarthritis. Large right knee joint effusion. Reviewed, dictated and finalized at location K. IMPRESSION: Moderate right knee osteoarthritis. Large right knee joint effusion .
== END 2023-02-09 15:24 | disposition home or self-care (01) ==
LOC: CHSIMG 15:32
PROVIDERS: PCP Internal Medicine; Visit Provider Internal Medicine
DX: M25.561 Pain in right knee (principal); M17.11 Unilateral primary osteoarthritis, right knee; M25.461 Effusion, right knee
CPT/HCPCS: 73562

== ENCOUNTER 2023-04-15 07:53 | Outpatient (CLI) | payer OTHER, SELFPAY ==
[2023-04-15 08:02] LABS: Basophils Absolute Auto 0.08 K/mm3 (0.00-0.10); Basophils Percent Auto 0.9 % (0.0-1.0); Eosinophils Absolute Auto 0.48 K/mm3 (0.02-0.50); Eosinophils Percent Auto 5.6 % (1.0-6.0); Hematocrit 41.5 % (35.0-49.0); Hemoglobin 13.1 g/dL (12.0-15.0); Immature Granulocyte Absolute 0.03 K/mm3 (0.00-0.00); Immature Granulocyte Percent A 0.4 % (0.0-0.0); Lymphocytes Percent Auto 25.9 % (18.0-42.0); Mean Corpuscular HGB Conc 31.6 g/dL (32.0-36.0); Mean Corpuscular Hemoglobin 30.5 pg (27.0-31.0); Mean Corpuscular Volume 96.5 fL (78.0-102.0); Mean Platelet Volume 9.5 fl (9.2-11.8); Monocytes Absolute Auto 0.44 K/mm3 (0.10-0.90); Monocytes Percent Auto 5.2 % (2.0-11.0); Neutrophils Absolute Auto 5.3 K/mm3 (1.7-7.2); Platelet Count Result 357 K/mm3 (150-420); Red Cell Distribution Width 13.2 % (11.6-14.4); White Blood Count 8.5 K/mm3 (4.8-10.8)
[2023-04-15 08:58] LABS: Alanine Aminotransferase 34 U/L (14-59); Albumin Level 3.7 g/dL (3.4-5.0); Alkaline Phosphatase 184 U/L (46-116); Anion Gap 11 mmol/L (8-16); Aspartate Amino Transferase 24 U/L (15-37); Bilirubin,Total 0.3 mg/dL (0.00-1.00); Blood Urea Nitrogen 18 mg/dL (7-18); Calcium 9.6 mg/dL (8.5-10.1); Carbon Dioxide 28 mmol/L (21-32); Chloride 107 mmol/L (98-108); Cholesterol 165 mg/dL (0-200); Estimated Glomerular Filt Rate 39; Glucose 113 mg/dL (70-99); HDL Direct 49 mg/dL (40-60); LDL Cholesterol Calculated 87 mg/dL (<130); Osmolality Calculated 304 mOsm/kg (285-295); Potassium 4.9 mmol/L (3.5-5.1); Sodium 146 mmol/L (136-145); Total Protein 7.3 g/dL (6.4-8.2); Triglycerides 143 mg/dL (0-150)
== END 2023-04-15 07:54 | disposition home or self-care (01) ==
LOC: CHSLAB 07:54
PROVIDERS: PCP Internal Medicine; Visit Provider Internal Medicine Cardiovascular Disease
DX: E78.5 Hyperlipidemia, unspecified (principal)
CPT/HCPCS: 36415; 80053; 80061; 83735; 85025

== ENCOUNTER 2023-07-22 13:49 | Outpatient (CLI) | payer OTHER, SELFPAY ==
--- NOTE | ~2023-07-22 | MM_ITS ---
EXAMINATION: MM screening [facility] BI w mary ann HISTORY: Screening mammogram TECHNIQUE: Craniocaudal and mediolateral oblique 3-D tomosynthesis images were obtained and synthetic 2-D images were generated. CAD analysis was submitted and interpreted. COMPARISON: 06/23/2022, 01/29/2021, 06/07/2017 BREAST PARENCHYMAL COMPOSITION: There are scattered areas of fibroglandular density. FINDINGS: No suspicious mass, calcification, or architectural distortion are identified in either anel ast to suggest malignancy. There has been no suspicious interval change. IMPRESSION: 1. No mammographic evidence of malignancy. 2. Recommend routine screening mammography in one year. BI-RADS Category 1: Negative Reviewed, dictated and finalized at location A. 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
== END 2023-07-22 13:50 | disposition home or self-care (01) ==
LOC: CHSIMG 13:54
PROVIDERS: PCP Internal Medicine; Visit Provider Internal Medicine
DX: Z12.31 Encounter for screening mammogram for malignant neoplasm of breast (principal)
CPT/HCPCS: 77063; 77067

== ENCOUNTER 2023-10-14 13:37 | Outpatient (CLI) | payer OTHER, SELFPAY ==
[2023-10-14 14:15] LABS: Basophils Absolute Auto 0.06 K/mm3 (0.00-0.10); Basophils Percent Auto 0.7 % (0.0-1.0); Eosinophils Absolute Auto 0.32 K/mm3 (0.02-0.50); Eosinophils Percent Auto 3.6 % (1.0-6.0); Hemoglobin 12.6 g/dL (12.0-15.0); Immature Granulocyte Absolute 0.04 K/mm3 (0.00-0.00); Immature Granulocyte Percent A 0.4 % (0.0-0.0); Lymphocytes Absolute Auto 2.73 K/mm3 (1.10-4.50); Lymphocytes Percent Auto 30.5 % (18.0-42.0); Mean Corpuscular HGB Conc 32.3 g/dL (32-36); Mean Corpuscular Hemoglobin 30.3 pg (27.0-31.0); Mean Corpuscular Volume 93.8 fL (78.0-102.0); Monocytes Absolute Auto 0.48 K/mm3 (0.10-0.90); Monocytes Percent Auto 5.4 % (2.0-11.0); Neutrophils Absolute Auto 5.32 K/mm3 (1.70-7.20); Neutrophils Percent Auto 59.4 % (50.0-70.0); Platelet Count Result 377 K/mm3 (150-420); Red Blood Count 4.16 M/mm3 (4.20-5.40); Red Cell Distribution Width 12.9 % (11.6-14.4)
[2023-10-14 14:52] LABS: Alanine Aminotransferase 50 U/L (14-59); Albumin Level 3.7 g/dL (3.4-5.0); Alkaline Phosphatase 191 U/L (46-116); Amylase 109 U/L (25-115); Anion Gap 8 mmol/L (4-12); Aspartate Amino Transferase 30 U/L (15-37); Bilirubin,Total 0.3 mg/dL (0.00-1.00); Blood Urea Nitrogen 15 mg/dL (7-18); Calcium 9.2 mg/dL (8.5-10.1); Carbon Dioxide 30 mmol/L (21-32); Chloride 106 mmol/L (98-108); Estimated Glomerular Filt Rate 46; Glucose 91 mg/dL (70-99); Lipase 68 U/L (16-77); Osmolality Calculated 298 mOsm/kg (285-295); Potassium 3.7 mmol/L (3.5-5.1); Sodium 144 mmol/L (136-145); Total Protein 7.3 g/dL (6.4-8.2)
== END 2023-10-14 13:38 | disposition home or self-care (01) ==
LOC: CHSLAB 13:41
PROVIDERS: PCP Internal Medicine; Visit Provider Internal Medicine
DX: K86.1 Other chronic pancreatitis (principal); K80.20 Calculus of gallbladder without cholecystitis without obstruction; F10.19 Alcohol abuse with unspecified alcohol-induced disorder
CPT/HCPCS: 36415; 80053; 82150; 83690; 85025

== ENCOUNTER 2024-01-12 13:22 | Outpatient (CLI) | payer OTHER, SELFPAY ==
--- NOTE | ~2024-01-12 | DEXA_ITS ---
Bone Density Report Name: KATT ROSAS Age: 53 Sex: Female Ethnicity: Date of : 1970 Indication: postmenopausal; screening for osteoporosis; height loss; hysterectomy; rheumatoid arthritis; Referring Provider: SHIRA, MAYELIN Wells Study: Bone densitometry was performed. Exam Date: January 12, 2024 Accession number: [id number] Bone Density: Region BMD T-score Z-score Classification AP Spine(L1-L4) 1.030 -0.2 0.9 Normal Femoral Neck (Left) 0.625 -2.0 -1.0 Osteopenia Total Hip (Left) 0.732 -1.7 -0.9 Osteopenia Femoral Neck (Right) 0.587 -2.4 -1.4 Osteopenia Total Hip (Right) 0.713 -1.9 -1.1 Osteopenia Femoral Neck Mean 0.606 -2.2 -1.2 Osteopenia Total Hip Mean 0.723 -1.8 -1.0 Osteopenia World Health Organization criteria for BMD impression classify patients as: Normal (T-score at or above -1.0), Osteopenia (T-score between -1.0 and -2.5), or Osteoporosis (T-score at or below -2.5). 10-year Fracture Risk(1): Major Osteoporotic Fracture 6.9% Hip Fracture 1.9% Reported Risk Factors: [place] (), Neck BMD=0.587, BMI=24.3, smoking, rheumatoid arthritis (1) FRAX(R) Version 3.08. Fracture probability calculated for an untreated patient. Fracture probability may be lower if the patient has received treatment. Clinical Information Provided by Patient: Smokes Has rheumatoid arthritis Has used the following medications: Vitamin D, Calcium, MULTI Has the following medical conditions: Hysterectomy Patient maximum height was 64 Menopause Age: 40 No regular weight bearing exercise Does not regularly consume dairy products Drinks caffeinated beverages Onset of menses at age 10 Number of children 3 Impression: The patient has low bone mass, based on the Right Femoral Neck T-score. The patient has risk factors, including: smoking. Discussion: BONE DENSITY IS LOW AT ONE OR MORE SKELETAL SITES. This patient's lowest T-score is low at one or more skeletal sites. It meets the World Health Organization's (WHO) criteria for ?low bone mass? (T-score between -1.0 and -2.5). The patient's 10-year risk of fracture as calculated by FRAX is less than the threshold where pharmacological therapy is recommended by the National Osteoporosis Foundation (NOF). However, all treatment decisions require clinical judgment and consideration of individual patient factors, including patient preferences, comorbidities, previous drug use, risk factors not captured in the FRAX model (e.g., frailty, falls, vitamin D deficiency, increased bone turnover, interval significant decline in bone density) and possible under or overestimation of fracture risk by FRAX. The patient should follow a healthful lifestyle (good nutrition with adequate calcium and vitamin D, and appropriate weight-bearing exercise). Follow-Up: Consider repeating this study in 2 to 3 years to reassess th
--- NOTE | ~2024-01-12 | CT_ITS ---
CT Scan of the Chest without Contrast: Clinical Indication: Lung cancer screening, nicotine dependence Technique: Contiguous sections were acquired throughout the chest without intravenous contrast. Dose reduction technique was used on this scan by utilizing automated exposure control and iterative recon struction technique. The dose-length product (DLP) was 50.99 mGy-cm. COMPARISON: 01/14/2023 Findings: There is no evidence of any significant mediastinal, hilar or axillary lymphadenopathy. Coronary dale ry calcium patient are present. There is no evidence of pleural or pericardial effusion. The lungs are clear. No pulmonary nodules or infiltrates are noted. Probable minimal emphysema. Images through the upper abdomen reveal no abnormalities. Impression: Lung RADS 1: Negative. 12 month follow-up screening CT advised. Reviewed, dictated and finalized at location . Impression: Lung RADS 1: Negative. 12 month follow-up screening CT advised.
== END 2024-01-12 13:23 | disposition home or self-care (01) ==
LOC: CHSIMG 13:23
PROVIDERS: PCP Internal Medicine; Visit Provider Nurse Practitioner Family
DX: Z78.0 Asymptomatic menopausal state (principal); Z12.2 Encounter for screening for malignant neoplasm of respiratory organs; Z87.891 Personal history of nicotine dependence; M85.89 Other specified disorders of bone density and structure, multiple sites
CPT/HCPCS: 71271; 77080

== ENCOUNTER 2024-02-15 09:53 | Outpatient (CLI) | payer OTHER, SELFPAY ==
[2024-02-15 10:07] LABS: Basophils Absolute Auto 0.06 K/mm3 (0.00-0.10); Basophils Percent Auto 0.6 % (0.0-1.0); Eosinophils Absolute Auto 0.34 K/mm3 (0.02-0.50); Eosinophils Percent Auto 3.3 % (1.0-6.0); Hematocrit 38.7 % (35.0-49.0); Hemoglobin 12.7 g/dL (12.0-15.0); Immature Granulocyte Absolute 0.04 K/mm3 (0.00-0.00); Immature Granulocyte Percent A 0.4 % (0.0-0.0); Lymphocytes Absolute Auto 2.21 K/mm3 (1.10-4.50); Lymphocytes Percent Auto 21.7 % (18.0-42.0); Mean Corpuscular HGB Conc 32.8 g/dL (32-36); Mean Corpuscular Hemoglobin 30.2 pg (27.0-31.0); Mean Corpuscular Volume 92.1 fL (78.0-102.0); Mean Platelet Volume 9.7 fl (9.2-11.8); Monocytes Percent Auto 4.9 % (2.0-11.0); Neutrophils Absolute Auto 7.02 K/mm3 (1.70-7.20); Neutrophils Percent Auto 69.1 % (50.0-70.0); Platelet Count Result 358 K/mm3 (150-420); Red Cell Distribution Width 12.5 % (11.6-14.4); White Blood Count 10.2 K/mm3 (4.8-10.8)
[2024-02-15 10:17] LABS: Appearance Urine Clear (Clear); Blood Urine Negative (Negative); Color Urine Yellow (Yellow); Glucose Urine UA Negative (Negative); Ketones Urine Negative (Negative); Nitrate Urine Negative (Negative); Protein Urine Trace (Negative); Specific Grav Ur 1.015 (1.010-1.020)
[2024-02-15 10:18] LABS: Add Urine Microscopic? YES; Bilirubin Urine Negative (Negative); Leukocyte Esterase Ur Trace LEU/UL (Negative); Urobilinogen Urine 0.2 mg/dL (0.2-1.0)
[2024-02-15 10:22] LABS: RBC Urine None seen /hpf (0-2)
[2024-02-15 10:23] LABS: Amorphous Sediment Urine Moderate; Bacteria Urine Trace /hpf; Squamous Epithelial Cell Urine Few /hpf (Few); WBC Urine 0-3 /hpf (0-3)
[2024-02-15 10:49] LABS: Alanine Aminotransferase 28 U/L (14-59); Albumin Level 3.8 g/dL (3.4-5.0); Alkaline Phosphatase 187 U/L (46-116); Amylase 126 U/L (25-115); Anion Gap 10 mmol/L (4-12); Aspartate Amino Transferase 19 U/L (15-37); Bilirubin,Total 0.2 mg/dL (0.00-1.00); Blood Urea Nitrogen 12 mg/dL (7-18); Calcium 9.3 mg/dL (8.5-10.1); Carbon Dioxide 29 mmol/L (21-32); Chloride 103 mmol/L (98-108); Estimated Glomerular Filt Rate > 60; Glucose 111 mg/dL (70-99); Lipase 247 U/L (16-77); Osmolality Calculated 294 mOsm/kg (285-295); Potassium 3.8 mmol/L (3.5-5.1); Sodium 142 mmol/L (136-145); Total Protein 7.3 g/dL (6.4-8.2)
== END 2024-02-15 09:54 | disposition home or self-care (01) ==
LOC: CHSLAB 09:55
PROVIDERS: PCP Internal Medicine; Visit Provider Internal Medicine
DX: R10.9 Unspecified abdominal pain (principal)
CPT/HCPCS: 36415; 80053; 81001; 82150; 83690; 85025

== ENCOUNTER 2024-02-16 15:14 | Outpatient (CLI) | payer OTHER, SELFPAY ==
[2024-02-16 15:28] LABS: Hematocrit 37.2 % (35.0-49.0); Hemoglobin 12.4 g/dL (12.0-15.0); Mean Corpuscular HGB Conc 33.3 g/dL (32-36); Mean Corpuscular Hemoglobin 30.7 pg (27.0-31.0); Mean Corpuscular Volume 92.1 fL (78.0-102.0); Mean Platelet Volume 9.6 fl (9.2-11.8); Platelet Count Result 341 K/mm3 (150-420); Red Blood Count 4.04 M/mm3 (4.20-5.40); Red Cell Distribution Width 12.6 % (11.6-14.4); White Blood Count 10.7 K/mm3 (4.8-10.8)
[2024-02-16 16:17] LABS: Alanine Aminotransferase 25 U/L (14-59); Albumin Level 3.7 g/dL (3.4-5.0); Alkaline Phosphatase 180 U/L (46-116); Amylase 107 U/L (25-115); Anion Gap 7 mmol/L (4-12); Aspartate Amino Transferase 17 U/L (15-37); Bilirubin,Total 0.3 mg/dL (0.00-1.00); Blood Urea Nitrogen 13 mg/dL (7-18); Calcium 9.4 mg/dL (8.5-10.1); Carbon Dioxide 30 mmol/L (21-32); Chloride 104 mmol/L (98-108); Estimated Glomerular Filt Rate 53; Glucose 107 mg/dL (70-99); Lipase 87 U/L (16-77); Osmolality Calculated 292 mOsm/kg (285-295); Potassium 3.8 mmol/L (3.5-5.1); Sodium 141 mmol/L (136-145); Total Protein 6.9 g/dL (6.4-8.2)
== END 2024-02-16 15:15 | disposition home or self-care (01) ==
LOC: CHSLAB 15:17
PROVIDERS: PCP Internal Medicine; Visit Provider Internal Medicine
DX: K85.90 Acute pancreatitis without necrosis or infection, unspecified (principal)
CPT/HCPCS: 36415; 80053; 82150; 83690; 85027

== ENCOUNTER 2024-02-18 15:14 | Outpatient (CLI) | payer OTHER, SELFPAY ==
[2024-02-18 15:25] LABS: Basophils Absolute Auto 0.06 K/mm3 (0.00-0.10); Basophils Percent Auto 0.6 % (0.0-1.0); Eosinophils Absolute Auto 0.47 K/mm3 (0.02-0.50); Eosinophils Percent Auto 4.9 % (1.0-6.0); Hematocrit 33.5 % (35.0-49.0); Immature Granulocyte Absolute 0.03 K/mm3 (0.00-0.00); Immature Granulocyte Percent A 0.3 % (0.0-0.0); Lymphocytes Absolute Auto 2.62 K/mm3 (1.10-4.50); Lymphocytes Percent Auto 27.2 % (18.0-42.0); Mean Corpuscular HGB Conc 32.8 g/dL (32-36); Mean Corpuscular Hemoglobin 30.4 pg (27.0-31.0); Mean Corpuscular Volume 92.5 fL (78.0-102.0); Mean Platelet Volume 9.8 fl (9.2-11.8); Monocytes Absolute Auto 0.51 K/mm3 (0.10-0.90); Monocytes Percent Auto 5.3 % (2.0-11.0); Neutrophils Absolute Auto 5.95 K/mm3 (1.70-7.20); Neutrophils Percent Auto 61.7 % (50.0-70.0); Platelet Count Result 317 K/mm3 (150-420); Red Blood Count 3.62 M/mm3 (4.20-5.40); Red Cell Distribution Width 12.8 % (11.6-14.4); White Blood Count 9.6 K/mm3 (4.8-10.8)
[2024-02-18 15:58] LABS: Alanine Aminotransferase 22 U/L (14-59); Albumin Level 3.5 g/dL (3.4-5.0); Alkaline Phosphatase 165 U/L (46-116); Amylase 113 U/L (25-115); Anion Gap 9 mmol/L (4-12); Aspartate Amino Transferase 16 U/L (15-37); Bilirubin,Total 0.4 mg/dL (0.00-1.00); Blood Urea Nitrogen 17 mg/dL (7-18); Calcium 8.9 mg/dL (8.5-10.1); Carbon Dioxide 28 mmol/L (21-32); Chloride 109 mmol/L (98-108); Estimated Glomerular Filt Rate 41; Glucose 138 mg/dL (70-99); Osmolality Calculated 305 mOsm/kg (285-295); Sodium 146 mmol/L (136-145); Total Protein 6.3 g/dL (6.4-8.2)
[2024-02-22 18:52] LABS: Lipase 159 U/L (16-77)
== END 2024-02-18 15:15 | disposition home or self-care (01) ==
LOC: CHSLAB 15:16
PROVIDERS: PCP Internal Medicine; Visit Provider Internal Medicine
DX: R74.8 Abnormal levels of other serum enzymes (principal)
CPT/HCPCS: 36415; 80053; 82150; 83690; 85025

== ENCOUNTER 2024-07-26 13:17 | Outpatient (CLI) | payer MEDICARE, SELFPAY ==
--- NOTE | ~2024-07-26 | MM_ITS ---
EXAMINATION: MM screening kareem BI w mary ann HISTORY: Screening TECHNIQUE: Craniocaudal and mediolateral oblique 3-D tomosynthesis images were obtained and synthetic 2-D images were generated. CAD analysis was submitted and interpreted. COMPARISON: Comparison to multiple prior studies sequentially, with oldest reviewed study dated 03/29. BREAST PARENCHYMAL COMPOSITION: Not dense: There are scattered areas of fibroglandular density. FINDINGS: There is no evidence of suspicious mass, calcification, or architectural distortion to sugg est malignancy in either breast. There has been no suspicious interval change. IMPRESSION: 1. No mammographic evidence of malignancy. 2. Recommend routine screening mammography in one year. BI-RADS Category 1: Negative Reviewed, dictated and finalized at location [facility]
--- OUTSIDE RECORDS SUMMARY | 2024-07-26 14:15 | XMS_ITS | Clinical Summary ---
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 Act lion vitamin D (CHOLECALCIFERO L) 1000 UNIT Tablet Take 1,000 Units by mouth daily. VIT D3 Active clotrimazole (MYCELEX) 10 MG Lozenge Take 10 mg by mouth 5 times daily. Active atenolol (TENORMIN) 25 MG Tablet 9 Active Vitamin B-1 (THIAMINE) 100 MG Tablet Take 1 Tab by mouth daily. 90 Tab 3 9 Active Additional Information Patient not taking.Reported on 02/07/2024 folic acid (FOLVITE) 1 MG Tablet Take 1 Tab by mouth daily. 90 Tab 0 Active Additional Information Patient not taking.Reported on 02/07/2024 atorvastatin (LIPITOR) 40 MG Tablet Take 40 mg by mouth daily. Active MAGNESIUM PO Take 2 Tablets by mouth daily. Active Calcium Carbonate-Vit D-Min (CALCIUM 1200 PO) Take 1 Tablet by mouth daily. Active Sanger-3 Fatty Acids (FISH OIL PO) Take 1 Capful by mouth daily. Active MULTIPLE VITAMINS PO Take 1 Tablet by mouth daily. Active Ascorbic Acid (VITAMIN C PO) Take 500 mg by mouth daily. Active ALPHA LIPOIC ACID PO Take 600 mg by mouth in the morning and at bedtime. Active Active Problems No known active problems Family History Medical History Relation Name Comments Alzheimer's Disease Father Cancer Maternal Grandfather brain Cancer Maternal Grandmother pancrea tic Arthritis Mother Diabetes Mother Heart Disease Mother Other-comment Mother COVID Relation Name Status Comments Father Maternal Grandfather Maternal Grandmother Mother Social History Tobacco Use Types Packs/Day Years Used Date Smoking Tobacco: Every Day Cigarettes 1 25 Smokeless Tobacco: Never Tobacco Cessation:Ready to Q uit: No; Counseling Given: Yes Alcohol Use Standard Drinks/Week Comments Not Currently 0 (1 standard drink = 0.6 oz pur e alcohol) SOBER SINCE 10/30/2020 Sexually Active Control Partners Comments Yes Male Comments No Sex and Gender Information Value Date Recorded Sex Assigned at Not on file Legal Sex Female 3:21 PM CDT Gender Identity Not on file Sexual Orientation Not on file Last Filed Vital Signs Vital Sign Reading Time Taken Comments Blood Pressure 122/74 02/10/2024 3:23 PM CDT Pulse 94 02/10/2024 3:23 PM CDT Temperature 36 ??C (96.8 ??F) 01/03/2019 11:51 AM CDT Respiratory Rate 12 02/10/2024 3:23 PM CDT Oxygen Saturation 97% 02/10/2024 3:23 PM CDT Inhaled Oxygen Concentration - - Weight 61.2 kg (135 lb) 02/07/2024 9:00 AM CDT Height 160 cm (5' 3 ) 02/07/2024 9:00 AM CDT Body Mass Index 23.91 02/07/2024 9:00 AM CDT Plan of Treatment Health Maintenance Due Date Last Done Comments Pneumococcal Immunization Combined (1 of 2 - PCV) 1974 Hepatitis B Immunization (1 of 3 - 19+ 3-dose series) 09/17/1987 Pneumococcal Immunization (5 0+ years) (1 of 2 - PCV) 09/17/1987 Cologuard 2018 Immunochemical Fecal Occult Blood 2018 Mammogram 2018 Zoster Immunization (1 of 2) 2018 Lung Cancer Screening 01/27/2024 01/26/2023 Influenza Immunization (#1) 2024 04/10/2019 SARS-COV-2 Immunization (2 season) 2024 04/24/2021 Colonoscopy 02/09/2034 02/10/2024, 01/03/2019 Colorectal Cancer Screening 02/09/2034 Respiratory Syncytial Virus (RSV) Immunization (Adult) (1 - 1-dose 75+ series) 09/17/2043 02/10/2024, 01/03/2019 DTaP/Tdap/Td Immunization Discontinued 2019, 11/27/2013 TdaP Immunization Completed 07/07/2019, 11/27/2013 Hepatitis C Virus (HCV) Screening Completed 09/08/2023, 11/29/2018 Meningococcal Immunization (ACWY) Aged Out No longer eligible based on patient's age to complete this topic Rotavirus Immunization Aged Out No lo nger eligible based on patient's age to complete this topic Procedures Procedure Name Priority Date/Time Associated Diagnosis Comments HEPATITIS PANEL ACUTE (AHP) Routine 11/29/2018 8:54 AM CDT from Last 3 Months or Most Recently Relevant to Health Maintenance Results * Hepatitis Panel Acute (AHP) (11/29/2018 8:54 AM CDT) HEPATITIS A IGM ANTIBODY NON DETECTED NON DETECTED 11/29/2018 4:20 PM CDT [facility] Comment: IGM Antibodies to HAV not detected. ??Does not exclude early acute or recovered HAV infection. HEP B CORE AB (IGM) NON DETECTED NON DETECTED 11/29/2018 4:20 PM CDT [facility] Comment: IGM anti-HBC not detected. ??Does not exclude the possibility of exposure to or infection with HBV. HEPATITIS B SURFACE ANTIGEN NON DETECTED NON DETECTED 11/29/2018 4:20 PM CDT [facility] Comment: A nonreactive test result does not exclude the possibility of exposure to or infection with Hepatitis B virus. A nonreactive test result in individuals with prior exposure to hepatitis B may be due to antigen levels below the detection limit of this assay or lack of antigen reactivity to the antibodies in this assay. hepatitis C antibody 0.13 <1 S/CO 11/29/2018 4:20 PM CDT [facility] Comment: Signal/Cutoff ratio ??< 0.79 is Nondetected Signal/Cutoff ratio 0.80-0.99 is Grayzone Signal/Cutoff ratio > 0.99 is Detected Supplemental assays are recommended if signal/cutoff ratio is >/=1.00. ??Signal/cutoff ratio result >/= 5.00 is 97% predictive of positivity for recombinant immunoblot assay (RIBA) and will be reported to the [place] Department of Public Health as required. 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
--- OUTSIDE RECORDS SUMMARY | 2024-07-26 14:15 | XMS_ITS | Data Portability ---
Author Organization [place] [facility] [employer] Main Office Address [address] [place] [address] Assessment No assessment recorded. Plan of Treatment Reminders Order Date Submit Date Provider Last Modified By Organization Details Last Modified Time Details Appointments None recorded. Lab urinalysis , dipstick [email or web address], [address], 15:08:12 Referral None recorded. Procedures None recorded. Surgeries None recorded. Imaging None recorded. Medication Orders None recorded. Patient TargetsNo targets recorded. Patient InstructionsNo instructions recorded. Reason for Referral None Reported. Results Created Date Observation Date Name Description Value Unit Range Abnormal Flag Note LastModifiedBy Organization Detail LastModifiedTime 02/03/2002/02/2023 urina lysis , dipst ick Leukocytes (reference range: negative willa/??l) Small Not Available [address], [address], 02/02/2023 14:53:19 02/03/20 23 02/02/2023 urina lysis , dipst ick Nitrite (reference rage: negative mg/dl) negati ve Not Available [address], [address], 02/02/2023 14:53:19 02/03/20 23 02/02/2023 urina lysis , dipst ick Urobilinogen (reference range: 0.2-1 mg/dl) 0.2 Not Available [address], [address], 02/02/2023 14:53:19 02/03/20 23 02/02/2023 urina lysis , dipst ick Protein (reference range: negative mg/dl) Small Not Available [address], [address], 02/02/2023 14:53:19 02/03/2002/02/2023 urina lysis , dipst ick pH (reference range: 5-7) 6.5 Not Available [address], [address], 02/02/2023 14:53:19 02/03/20 23 02/02/2023 urina lysis , dipst ick Blood (reference range: negative Braydon/??l) Large Not Available [address], [address], 02/02/2023 14:53:19 02/03/20 23 02/02/2023 urina lysis , dipst ick Specific [place] (reference range: 1.005-1.030) 1.020 Not Available [address], [address], 02/02/2023 14:53:19 02/03/20 23 02/02/2023 urina lysis , dipst ick Ketone (reference range: negative mg/dl) Negati ve Not Available [address], [address], 02/02/2023 14:53:19 02/03/20 23 02/02/2023 urina lysis , dipst ick Bilirubin (reference range: negative mg/dl) Negati ve Not Available [address], [address] , [place], [address], 02/02/2023 14:53:19 02/03/20 23 02/02/2023 urina lysis , dipst ick Glucose (reference range: negative mg/dl) Negati ve Not Available [address], [address], [place], [address], 02/02/2023 14:53:19 02/03/20 23 02/02/2023 urina lysis , dipst ick Appearance Clear Not Available [address], [address] , [place], [address], 02/02/2023 14:53:19 02/03/20 23 02/02/2023 urina lysis , dipst ick Color Yellow Not Available [address], [address] , [place], [address], 02/02/2023 14:53:19 02/16/20 23 02/15/2023 XR, kidne y + urete r + bladd er No observ ation record ed. [email or web address] [facility] [address] [place], [address], 02/16/2023 16:36:26 Result Notes None recorded. Problems Name Problem SNOMED Code Status Onset Date Resolution Date Notes Provider Name and Address Organization Details Recorded Time Kidney stone 03430830 Active 023 ARNOLD Stiles, [employer] 02/02/2023 14:53:20 Problem Notes None recorded. Procedures Surgical History Date Name Laterality Status Provider Name and Address Organization Details Recorded Time Ankle Surgery completed BRAD Perera [employer] 02/02/2023 14:53:57 procedure on elbow completed BRAD Perera [facility] 02/02/2023 14:54:10 Hysterectomy completed BRAD Perera Julian [facility] 02/02/2023 14:54:28 Imaging Results Imaging Date Name Status LastModified by Organiz ation Details LastModified Time 02/15/2023 XR, kidney + ureter + bladder completed [email or web address] [facility] [address] [place], [address], 02/16/2023 16:36:26 Procedure Notes None recorded. Medical Equipment None Reported. Allergies No known drug allergies Medications Name Sig Start Date Stop Date Status Note LastModified by Organization Details LastModified Time atorvastatin 40 mg tablet TAKE 1 TABLET BY MOUTH ONCE DAILY active Not Available Not Available No t Available nystatin 100,000 unit/mL oral suspension SWISH AND SPIT 5 ML BY MOUTH 4 TIMES DAILY FOR 14 DAYS active Not Available Not Available Not Available prednisone 10 mg tablet TAKE 4 TABLETS BY MOUTH DAILY FOR 3 DAYS, THEN TAKE 3 TABLETS DAILY FOR 3 DAYS, THEN TAKE 2 TABLETS DAILY FOR 3 DAYS, THEN TAKE 1 TABLET DAILY FOR 3 DAYS. active Not Available Not Available No t Available cefuroxime axetil 250 mg tablet TAKE 1 TABLET BY MOUTH TWICE DAILY active Not Available Not Available No t Available azithromycin 250 mg tablet TAKE 2 TABLETS BY MOUTH ON DAY 1, AND THEN TAKE 1 TABLET BY MOUTH ONCE A DAY ON DAY 2 THROUGH DAY 5 active Not Available Not Available No t Available gabapentin 400 mg capsule TAKE 3 CAPSULES BY MOUTH THREE TIMES DAILY active Not Available Not Available Not Available potassium chloride ER 10 mEq tablet,exten ded release TAKE 1 TABLET BY MOUTH ONCE DAILY active Not Available Not Available No t Available metronidazol e 500 mg tablet TAKE 1 TABLET BY MOUTH EVERY 8 HOURS active Not Available Not Available No t Available tramadol 50 mg tablet TAKE 1 TABLET BY MOUTH EVERY 6 HOURS NEEDED FOR PAIN active Not Available Not Available No t Available cephalexin 500 mg capsule TAKE 1 CAPSULE BY MOUTH EVERY 8 HOURS FOR 7 DAYS active Not Available Not Available No t Available gabapentin 300 mg capsule TAKE 2 TO 3 CAPSULES BY MOUTH THREE TIMES DAILY active Not Available Not Available Not Available aspirin 81 mg chewable tablet CHEW AND SWALLOW 1 TABLET BY MOUTH ONCE DAILY FOR 60 DAYS active Not Available Not Available No t Available levofloxacin 750 mg tablet TAKE 1 TABLET BY MOUTH ONCE DAILY active Not Available Not Available No t Available doxycycline hyclate 100 mg tablet TAKE 1 TABLET BY MOUTH EVERY 12 HOURS FOR 3 DAYS active Not Available Not Available N ot Available duloxetine 30 mg capsule,darlin yed release TAKE 2 CAPSULES BY MOUTH TWICE DAILY active Not Available Not Available No t Available duloxetine 60 mg capsule,darlin yed release TAKE 1 CAPSULE BY MOUTH TWICE DAILY active Not Available Not Available No t Available BinaxNOW COVID-19 Ag Self Test kit Use as Directed on the Package active Not Available Not Available Not Available Paxlovid 300 mg (150 mg x 2)-100 mg tablets in a dose pack TAKE 3 TABLETS TOGETHER (TWO 150 MG NIRMATRELVI R TABLETS AND ONE 100 MG RITONAVIR TABLET) BY MOUTH TWICE DAILY FOR 5 DAYS. active Not Available Not Available No t Available Vitals Date Recorded Body height Provider Name an d Address Organization Details Last Updated DateTime 02/02/2023 162.56 cm BRAD Perera [facility] [employer] 02/02/2023 14:48:13 Date Recorded Heart rate Oxygen saturation Oxygen saturation in Arterial blood by Pulse oximetry Body mass index (BMI) Body weight Body temperature Systolic blood pressure Diastolic blood pressure Provider Name and Address Organization Details Last Updated DateTime 3 99 /min 98 % 98 % 23.7 kg/m2 72735.7 5 g 97.9 [degF] 129 mm[Hg] 77 mm[Hg] Clari Bae MA [facility] [employer] 14:52:58 Social History Question Answer Notes LastModified by Organizat ion Details LastModified Time Tobacco Smoking Status Current Every Day Smoker BRAD Perera [facility] [employer] 02/02/2023 14:53:44 What Is Your Level Of Alcohol Consumption? None [email or web address] Information not available 02/02/2023 What Is Your Level Of Caffeine Consumption? Moderate [email or web address] Information not available 02/02/2023 What Was The Date Of Your Most Recent Tobacco Screening? 02/02/2023 Information not available 02/02/2023 How Much Tobacco Do You Smoke? 1 PPD [email or web address] Information not available 02/02/2023 Do You Use Any Illicit Or Recreational Drugs? No [email or web address] Information not available 02/02/2023 Has Tobacco Cessation Counseling Been Provided? No [email or web address] Information not available 02/02/2023 Do You Or Have You Ever Used Any Other Forms Of Tobacco Or Nicotine? No [email or web address] Information not available 02/02/2023 Sex: Unknown Functional Status None recorded. Mental Status None recorded. Family History Relationship Description Onset Age of this Age Resolved Age Notes LastModified by Organization Details LastModified Time Unspecified Relation Diabetes mellitus [email or web address] Not available 2022 14:52:09 Unspecified Relation Hypertensive disorder [email or web address] Not available 2022 14:52:17 Unspecified Relation Heart disease [email or web address] Not available 2022 14:52:28 Unspecified Relation Kidney stone [email or web address] Not available 14:52:58 Medical History Condition Response KIDNEY DISEASE Y EMPHYSEMA Y KIDNEY STONES Y COPD Y STROKE/TIA Y Gynecological HistoryNo gynecological history recorded. Obstetrics History GPAL:G 0 P 0 0 0 0 Past Encounters Encounter ID Performer Location Encounter Start Date Encounter Closed Date Diagnosis/Indication Diagnosis SNOMED-CT Code Diagnosis ICD10 Code Diagnosis Note [id number] Talha Stephens MD [facility] [address], [address] [address] 02/02/2023 14:22:59 02/02/2023 15:07:11 Kidney stone 84110497 N20.0 8mm stone sp stent, went over eswl or ureterosco py, we agree to go with cysto, left ureterosco py, laser lithotrips y , stone and stent removal. went over risks of bleeding, infection, scar tissue, maybe stent replacemen t Health Concerns Section Related Observation LastModified by Organization Detai ls LastModified Time None Recorded Concern Status LastModified by Organization Details LastModified Time None Recorded Advance Directives Directive None Recorded Payers Encounter Date Sequence Insurance Name Policy Number Policy Laura Covered Member ID Laura Member ID Guarantor Name 02/02/2023 1 [facility] - DOS ON OR AFTER 20 (MEDICAID REPLACEMENT - HMO) Dinah Batres [id number] Dinah Batres Notes Date Note Type Note Provider Name and Address Organization Details Recorded Time 02/02/2023 text/html Kidney StoneReported bypatient.Notes:Pt was in [place] with infected left prox stone, pneumonia and renal failure. She had left stent and comes here for treatment. She has some stent irritation, no flank pain, fever or chills. Talha Stephens MD [address] [place] [address] [address], [place], [address], [facility] 02/02/2023 15:08:15 OBGyn Episode No OBEpisode recorded.
--- OUTSIDE RECORDS SUMMARY | 2024-07-26 14:15 | XMS_ITS | Encounter Summary ---
Author Organization [facility] Address [address] [place] [address]. [place], [place] [id number] [place] [address] Care Team Providers Care Chaperon Name Role Phone Mazin Meehan MD Primary Care Provider [phone] Reason for Visit * Auth/Cert (Routine) Specialty Diagnoses / Procedures Referred By Contac t Referred To Contact Diagnoses Sepsis; HOLLY Procedures N/A Derrek Alba MD [address] [place] [address] Phone: tel: fax: Referral ID Status Reason Start Date Expiration Date Visits Re quested Visits Authorized [id number] 1 1 Encounter Details Date Type Department Care Team (Latest Contact Info) Description 01/22/2023 Hospital Encounter Derrek Alba MD [address] [place], [place] [id number] Social History Tobacco Use Types Packs/Day Years Used Date Smoking Tobacco: Every Day Cigarettes Smokeless Tobacco: Never Comments:patient dosent want to stop smoking Alcohol Use Standard Drinks/Week Comments No 0 (1 standard drink = 0.6 oz pur e alcohol) sober 3 years [facility] Utilities Answer Date Recorded In the past 12 months has th e electric, gas, oil, or water company threatened to shut off services in your home? No 10/03/2023 Humiliation, Afraid, Rape, and Kick questionnair e Answer Date Recorded Within the last year, have y ou been afraid of your partner or ex-partner? No 10/03/2023 Within the last year, have y ou been humiliated or emotionally abused in other ways by your partner or ex-partner? No Within the last year, have y ou been kicked, hit, slapped, or otherwise physically hurt by your partner or ex-partner? No 10/03/2023 Within the last year, have y ou been raped or forced to have any kind of sexual activity by your partner or ex-partner? No 10/03/2023 AUDIT-C Answer Date Recorded Frequency of Alcohol Consumption Never 05/17/2019 Average Number of Drinks Not on file 019 Frequency of Binge Drinking Not on file 04/29 Overall Financial Resource Strain (CARDIA) Answe r Date Recorded How hard is it for you to pa y for the very basics like food, housing, medical care, and heating? Not hard at all 10/03/2023 PHQ-2 Answer Date Recorded PHQ-2 Score - If the patient scores above 3, please move on to questions 3-9 0 03/26/2022 Hunger Vital Sign Answer Date Recorded Within the past 12 months, y ou worried that your food would run out before you got the money to buy more. Never true 10/03/19 24 Within the past 12 months, t he food you bought just didn't last and you didn't have money to get more. Never true 10/03/2023 PRAPARE - Transportation Answer Date Re corded In the past 12 months, has l ack of transportation kept you from medical appointments or from getting medications? No 12/2023 In the past 12 months, has l ack of transportation kept you from meetings, work, or from getting things needed for daily living? No 10/03/2023 Housing Stability Vital Sign Answer Oleg e Recorded In the last 12 months, was t here a time when you were not able to pay the mortgage or rent on time? No 01/26/2023 In the last 12 months, how many places have you lived? 1 01/26/2023 In the last 12 months, was t here a time when you did not have a steady place to sleep or slept in a mcfp (including now)? No 01/26/2023 Housing Stability Vital Sign Answer Oleg e Recorded In the last 12 months, was t here a time when you were not able to pay the mortgage or rent on time? No 10/03/2023 In the past 12 months, how m any times have you moved where you were living? 1 10/03/2023 At any time in the past 12 m [facility], were you homeless or living in a mcfp (including now)? 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 No 10/03/2023 5:57 PM Stephy Bermudez RN Ac tive * Question Answer Date of Assessment Author Status Do you have difficulty dressing or bathing? No 10/03/2023 5:57 PM Stephy Bermudez R N Active Because of a physical, mental, or emotional condition, do you have difficulty doing errands alone such as visiting a doctor's office or shopping? No 10/03/2023 5:57 PM Stephy Bermudez RN Act lion * RETIRED Are you deaf or do you have serious difficulty hearing Answer Date of Assessment Author Status No 09/03/2020 4:02 AM ARTILLERY OR NAVAL GUNFIRE OBSERVER Activ e documented as of this encounter Mental Status * Question Answer Entry Date Author Status Because of a physical, mental, or emotional condition, do you have serious difficulty concentrating, remembering, or making decisions? No 10/03/2023 5:57 PM Stephy Bermudez R N Active documented in this encounter Plan of Treatment Not on file documented as of this encounter Goals Goal Patient Goal Type Associated Problems Recent Progress Patient-Stated? Author Safety - demonstrates understanding of home safety measures Lifestyle Vickie Mendez RN Safety ? Patient/family will have appropriate support at home upon discharge Lifestyle Vickie Mendez RN documented as of this encounter Visit Diagnoses Not on filedocumented in this encounter Care Teams Chaperon Relationship Specialty Start Date End Date Mazin Meehan MD [address] [place] [address] PCP - General INTERNAL MEDICINE 05/17/19 documented as of this encounter
--- OUTSIDE RECORDS SUMMARY | 2024-07-26 14:15 | XMS_ITS | Encounter Summary ---
Author Organization [facility] Address [address] [place] [address]. 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
--- OUTSIDE RECORDS SUMMARY | 2024-07-26 14:15 | XMS_ITS | Encounter Summary ---
Author Organization [facility] Address [address] [facility] [place] [address] Phone Care Team Providers Care Dowel Inspector Name Role Phone Mazin Meehan MD Primary Care Provider [phone] Bean Solorio MD Unavailable [phone] Reason for Visit * Reason Comments Medication Refill Encounter Details Date Type Department Care Team (Late st Contact Info) Description 07/21/2020 Refill [facility] - Gastroenterology - [place] [address] [place] [address] Louisa Stanley, PAC [address] [place] [address] Medication Refill Social History Tobacco Use Types Packs/Day Years Used Date Smoking Tobacco: Every Day Cigarettes 1.5 25 Smokeless Tobacco: Never Alcohol Use Standard Drinks/Week Comments Yes 0 (1 standard drink = 0.6 oz pur e alcohol) 3 beers and fireball daily Sexually Active Control Partners Comments Yes Male Comments No Sex and Gender Information Value Date Recorded Sex Assigned at Not on file Legal Sex Female 3:21 PM CDT Gender Identity Not on file Sexual Orientation Not on file documented as of this encounter Miscellaneous Notes * Telephone Encounter - Nelly Dangelo CMA - 07/22/2020 8:19 AM RADIO HOST Patient was notified on 04/24/2020 that she needed an office visit here or her primary doctor can refill. Patient has not been seen in this office as of this date. O HOST documented in this encounter Plan of Treatment Not on file documented as of this encounter Visit Diagnoses Not on filedocumented in this encounter Care Teams Dowel Inspector Relationship Specialty Start Date End Date Mazin Meehan MD [address] [place] [address] PCP - General Internal Medicine 11/04/18 Bean Solroio MD [address] [address] Hematology 04/21/19 documented as of this encounter
--- OUTSIDE RECORDS SUMMARY | 2024-07-26 14:15 | XMS_ITS | Clinical Summary ---
Author Organization [facility] Address [address] [place] [address]. [place] [address] [place] [address] Care Team Providers Care Marketing Researcher Name Role Phone Mazin Meehan MD Primary Care Provider [phone] Allergies Active Allergy Reactions Criticality Noted Date Comments [place] Swelling 01/26/2023 Patient does not want this to effect what she can eat. Gramineae Pollens Swelling Low 11/17/2018 [place] Swelling Medium 11/17/2018 Medications vitamin D3, cholecalciferol, (CHOLECALCIFEROL ) 1000 UNIT Tab tablet Take 1 tablet (1,000 Units total) by mouth daily. Active vitamin C 500 MG tablet Take 1 tablet (500 mg total) by mouth daily. Active atorvastatin 40 MG tablet Take 1 tablet (40 mg total) by mouth daily. 08/19/2021 Active multi vitamin/minerals (THERA-M ENHANCED) tablet Take 1 tablet by mouth daily. Active Amonate-3 Fatty Acids (FISH OIL) 500 MG capsule Take 500 mg by mouth daily. Active magnesium oxide (MAG-OX) 400 (240 Mg) MG tablet Take 1 tablet (400 mg total) by mouth daily. Active Active Problems Problem Noted Date Diagnosed Date Biliary colic 10/20/2023 Alcohol-induced chronic pancreatitis ([facility]/HCC HH S/HCC) 10/20/2023 Respiratory failure with hypoxia (CMS/HCC HHS/HC C) 01/26/2023 Acute respiratory failure with hypoxia (CMS/HCC HHS/HCC) 01/26/2023 SDH (subdural hematoma) (CMS/HCC HHS/HCC) 2020 Fall 09/03/2020 HOLLY (acute kidney injury) 09/03/2020 Hyponatremia 09/03/2020 Hypokalemia 09/03/2020 Hypomagnesemia 09/03/2020 Resolved Problems Problem Noted Date Diagnosed Date Resolved Date Acute on chronic pancreatiti s ([facility]/HCC [facility]) 10/03/2023 10/04/2023 Immunizations Name Administration Dates Next Due Influenza Adult (Generic) 04/10/2019 Tdap (Adacel) 11/27/2013 Tdap (Boostrix) 07/07/2019 Family History Medical History Relation Comments No Known Problems Brother Alzheimer's disease Father No Known Problems Maternal Aunt No Known Problems Maternal Grandfather No Known Problems Maternal Grandmother No Known Problems Maternal Uncle Diabetes Mother No Known Problems Other No Known Problems Paternal Aunt No Known Problems Paternal Grandfather No Known Problems Paternal Grandmother No Known Problems Paternal Uncle Diabetes Sister Relation Status Comments Brother Father Maternal Aunt Maternal Grandfather Maternal Grandmother Maternal Uncle Mother Other Paternal Aunt Paternal Grandfather Paternal Grandmother Paternal Uncle Sister Social History Tobacco Use Types Packs/Day Years Used Date Smoking Tobacco: Every Day Cigarettes Smokeless Tobacco: Never Tobacco Cessation:Ready to Q uit: No; Counseling Given: No Comments:patient dosent want to stop smoking Alcohol Use Standard Drinks/Week Comments No 0 (1 standard drink = 0.6 oz pur e alcohol) sober 3 years [facility] Utilities Answer Date Recorded In the past 12 months has e [employer], gas, oil, or water [employer] threatened to shut off services in your [...] place to sleep or slept in a mcc (including now)? No 01/26/2023 Housing Stability Vital Sign Answer Oleg e Recorded In the last 12 months, was t here a time when you were not able to pay the mortgage or rent on time? No 10/03/2023 In the past 12 months, how m any times have you moved where you were living? 1 10/03/2023 At any time in the past 12 m [facility], were you homeless or living in a mcc (including now)? 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 Gender Identity Not on file Sexual Orientation Not on file Last Filed Vital Signs Vital Sign Reading Time Taken Comments Blood Pressure 124/83 11/10/2023 8:58 AM CDT Pulse 82 11/10/2023 8:58 AM CDT Temperature 36.1 ??C (97 ??F) 10/28/2023 9:38 AM CDT Respiratory Rate 12 11/10/2023 8:58 AM CDT Oxygen Saturation 99% 11/10/2023 8:58 AM CDT Inhaled Oxygen Concentration - - Weight 64 kg (141 lb) 11/10/2023 8:58 AM CDT Height 162.6 cm (5' 4 ) 11/10/2023 8:58 AM CDT Body Mass Index 24.2 11/10/2023 8:58 AM CDT Plan of Treatment Health Maintenance Due Date Last Done Comments Colorectal Cancer Screening Colonoscopy (10 Years) 1968 Annual Physical 09/17/1971 Pneumococcal Vaccine: Pediatrics (0 to 5 Years) and At-Risk Patients (6 to 64 Years) (1 of 2 - PCV) 1974 PHQ-2 (Physician [place]) 1980 Hepatitis B Vaccines (1 of 3 - 19+ 3-dose series) 09/17/1987 Mammogram Screening 2008 Zoster Vaccines (1 of 2) 2018 COVID-19 Vaccine (2023-2 5 season) 2024 Influenza Adult (#1) 2024 04/10/2019 PHQ-2 (Physician [place]) 06/28/2024 DTaP, Tdap and Td Vaccines ( 3 - Td or Tdap) 07/07/2029 07/07/2019, 11/27/2013 Hepatitis C Completed 09/08/2023 Meningococcal B Vaccine Aged Out No l onger eligible based on patient's age to complete this topic Meningococcal Vaccine Aged Out No kehinde robinson eligible based on patient's age to complete this topic RSV Immunizations Under 20 Months Aged Out No longer eligible b ased on patient's age to complete this topic Goals Goal Patient Goal Type Associated Problems Recent Progress Patient-Stated? Author Safety - demonstrates understanding of home safety measures Lifestyle Vickie Mendez RN Safety ? Patient/family will have appropriate support at home upon discharge Lifestyle No Vickie Davalos rubber engraver Procedure Name Priority Date/Time Associated Diagnosis Comments HEPATITIS C ANTIBODY Routine 09/08/2023 3:24 PM CDT Peripheral neuropathy from Last 3 Months or Most Recently Relevant to Health Maintenance Results * HEPATITIS C ANTIBODY (09/08/2023 3:24 PM CDT) HEPATITIS C AB NON-REACTI VE NON-REACT LUCIANO 09/08/2023 5:37 PM CDT [facility] Comment: ANTIBODIES TO HCV NOT DETECTED. DOES NOT EXCLUDE THE POSSIBILITY OF EXPOSURE TO HCV. 09/08/2023 3:24 PM CDT us Shawn Burnett [facility] Final Resul t [facility] [address] [place] [address], [id number] from Last 3 Months or Most Recently Relevant to Health Maintenance Insurance MEDICAID [employer] Advance Directives * Full Code (Latest Code Status on File) Date Activated Date Inactivated Comments 10/03/2023 6:02 PM 10/04/2023 4:24 PM * Full Code Date Activated Date Inactivated Comments 01/26/2023 9:20 AM 01/30/2023 2:16 PM * Full Code Date Activated Date Inactivated Comments 09/03/2020 2:17 AM 09/04/2020 2:02 PM Care Teams Marketing Researcher Relationship Specialty Start Date End Date Mazin Meehan MD [address] [place] [address] PCP - General INTERNAL MEDICINE 05/17/19
== END 2024-07-26 13:18 | disposition home or self-care (01) ==
LOC: CHSIMG 13:19
PROVIDERS: PCP Internal Medicine; Visit Provider Internal Medicine
DX: Z12.31 Encounter for screening mammogram for malignant neoplasm of breast (principal)
CPT/HCPCS: 77063; 77067

== ENCOUNTER 2024-11-01 08:29 | Outpatient (CLI) | payer MEDICARE, SELFPAY ==
--- OUTSIDE RECORDS SUMMARY | 2024-11-01 08:40 | XMS_ITS | Clinical Summary ---
Author Organization [facility] Address [address] [place] [address] Care Team Providers Care Silk Opener Name Role Phone Mazin Meehan MD Primary Care Provider [phone] Allergies Active Allergy Reactions Criticality Noted Date Comments [place] Swelling 01/26/2023 Patient does not want this to effect what she can eat. Gramineae Pollens Swelling Low 11/17/2018 [place] Swelling Medium 11/17/2018 Medications vitamin D3, cholecalciferol, [...] Take 1 tablet by mouth daily. Active Calvin-3 Fatty Acids (FISH OIL) 500 MG capsule Take 500 mg by mouth daily. Active magnesium oxide (MAG-OX) 400 (240 Mg) MG tablet Take 1 tablet (400 mg total) by mouth daily. Active Active Problems Problem Noted Date Diagnosed Date Biliary colic 10/20/2023 Alcohol-induced chronic pancreatitis (CMS/HCC HH S/HCC) 10/20/2023 Respiratory failure with hypoxia (CMS/HCC HHS/HC C) 01/26/2023 Acute respiratory failure with hypoxia (CMS/HCC HHS/HCC) 01/26/2023 SDH (subdural hematoma) 09/03/2020 Fall 09/03/2020 HOLLY (acute kidney injury) 09/03/2020 Hyponatremia 09/03/2020 Hypokalemia 09/03/2020 Hypomagnesemia 09/03/2020 Resolved Problems Problem Noted Date Diagnosed Date Resolved Date Acute on chronic pancreatiti s ([facility]) 10/03/2023 10/04/2023 Immunizations Immunization Administration Dates Next Due Influenza Adult (Generic) [...] oz pur e alcohol) sober 3 years [facility] Utilities Answer Date Recorded In the past 12 months has e [employer], gas, oil, or water [employer] threatened to shut off services in your [...] place to sleep or slept in a senior care (including now)? No 01/26/2023 Housing Stability Vital Sign Answer Oleg e Recorded In the last 12 months, was t here a time when you were not able to pay the mortgage or rent on time? No 10/03/2023 In the past 12 months, how m any times have you moved where you were living? 1 10/03/2023 At any time in the past 12 m [facility], were you homeless or living in a senior care (including now)? 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 Gender Identity Not on file Sexual Orientation Not on file Last Filed Vital Signs Vital Sign Reading Time Taken Comments Blood Pressure 124/83 11/10/2023 8:58 AM CDT Pulse 82 11/10/2023 8:58 AM CDT Temperature 36.1 C (97 F) 10/28/2023 9:38 AM CDT Respiratory Rate 12 [...] Colonoscopy (10 Years) 1968 Annual Physical 09/17/1971 Hepatitis B Vaccines (1 of 3 - 19+ 3-dose series) 09/17/1987 Pneumococcal Vaccine: 50+ Years (1 of 2 - PCV) 09/17/1987 Mammogram Screening 2008 Zoster Vaccines (1 of 2) 2018 COVID-19 Vaccine (1 - 2023-2 5 season) 2024 PHQ-2 (Physician [place]) 06/28/2024 DTaP, Tdap and Td Vaccines ( [...] understanding of home safety measures Lifestyle Vickie Mendez, RN Safety Patient/family will have appropriate support at home upon discharge Lifestyle Vickie Mendez, welfare project manager Procedure Name Priority Date/Time Associated Diagnosis Comments HEPATITIS C ANTIBODY Routine 09/08/2023 3:24 PM CDT Peripheral neuropathy from Last 3 Months or Most Recently Relevant to Health Maintenance Results * HEPATITIS C ANTIBODY (09/08/2023 3:24 PM CDT) HEPATITIS C AB NON-REACTI VE NON-REACT LUCIANO 09/08/2023 5:37 PM CDT [facility] Comment: ANTIBODIES TO HCV NOT DETECTED. DOES NOT EXCLUDE THE POSSIBILITY OF EXPOSURE TO HCV. 09/08/2023 3:24 PM CDT us Shawn Burnett [facility] Final Resul t [facility] [address] [place] [address], [place] [phone] [id number] from Last 3 Months or Most Recently [...] 2:17 AM 09/04/2020 2:02 PM Care Teams Silk Opener Relationship Specialty Start Date End Date Mazin Meehan MD [address] [place] [address] PCP - General INTERNAL MEDICINE 05/17/19
--- OUTSIDE RECORDS SUMMARY | 2024-11-01 08:40 | XMS_ITS | Data Portability ---
Author Organization [facility], [address] [facility] ([place]) Address [address] [place] [address] Care Team Providers Care Asphalt Plant Worker Name Role Phone SHAW MALAVE Primary Care Provider SHAW MALAVE Referring Provider Assessment Encounter Date Assessment Date Assessment LastModified by Organization Details LastModified Time 04/25/2024 04/25/2024 Neuropathy: I suspect her polyneuropathy is due to a history of alcohol abuse and the fact that she is prediabetic, history of stroke. 1. Agree with medical marijuana card for neuropathy. 2. Will try Zynex Nexwave for chronic neuropathic pain management 3. Continue Duloxetine 60mg BID and Gabapentin 1200mg TID 4. Encouraged daily foot care and fall precautions 5. Encouraged normoglycemia Follow-up with me in 1 year or sooner if needed. The patient is in agreement with the above plan. In the meantime, the patient can call me with any questions or concerns. I personally spent a total of 30 minutes on the patient on this date of service including both igsn-hs-eghw and sjx-jmsh-ep-face time excluding any separately reportable services. [email or web address] Not available 05/03/2024 13:39:02 Plan of Treatment Reminders Order Date Submit Date Provider Last Modified By Organization Details Last Modified Time Details Appointments Establish ed Patient 20.EST 2024 10:20A M Shawn Burnett Not available Not available Not available Lab None recorded. Referral None recorded. Procedures None recorded. Surgeries None recorded. Imaging None recorded. Medication Orders None recorded. Patient TargetsNo targets recorded. Patient InstructionsNo instructions recorded. Reason for Referral None Reported. Results Created Date Observation Date Name Description Value Unit Range Abnormal Flag Note LastModifiedBy Organization Detail LastModifiedTime 04/25/20 24 10/21/2023 imagi ng/di agnos tic resul t No observ ation record ed. [email or web address] Not Available 22:32:00 10/21/19 25 11/04/2020 imagi ng/di agnos tic resul t No observ ation record ed. [email or web address] Not Available 21:13:12 10/21/19 25 11/09/2020 imagi ng/di agnos tic resul t No observ ation record ed. [email or web address] Not Available 21:13:15 Result Notes None recorded. Problems Name Problem SNOMED Code Status Onset Date Resolution Date Notes Provider Name and Address Organization Details Recorded Time Polyneuropathy 23253420 Active 2023 Shawn Burnett, TEST DEPARTMENT HELPER, UTILIZATION REVIEW RN [address] [place] [address], [id number], [facility] 13:39:08 Problem Notes None recorded. Procedures Surgical History Date Name Laterality Status Provider Name and Address Organization Details Recorded Time Colonoscopy with biopsy completed Not Available Health Note 04/18/2024 12:57:13 Total hysterectomy completed Not Available Health Note 04/18/2024 12:57:13 Removal of tonsils completed Not Available Health Note 04/18/2024 12:57:13 Imaging Results Imaging Date Name Status LastModified by Organiz ation Details LastModified Time 10/21/2023 imaging/diag nostic result completed [email or web address] Information not available 04/25/2024 22:32:00 11/04/2020 imaging/diag nostic result completed Information not available 10/20/2024 21:13:12 11/09/2020 imaging/diag nostic result completed Information not available 10/20/2024 21:13:15 Procedure Notes None recorded. Medical Equipment None Reported. Allergies Allergen ID Allergen Name Allergen Category Reaction Reaction Severity Criticality Documentation Date Start Date Code Code System Note Provider Name and Address Organization Details Recorded Time 791373 meloxicam medicatio n other Not available Not available 07/26/20232018 02598 RxNorm React ion: Other : unkno wn; Comme nt: Annot ation s: CELESTE Powell (JAVIER) , BRIAN Y 2018 1:53P M Abdom inal pain; ; Not Available [facility] 23:16:40 418176 citric acid medicatio n swelling Not available Not available 07/26/20232018 45765 RxNorm React ion: Swell ing; Not Available [facility] 23:16:40 Medications Name Sig Start Date Stop Date Status Note LastModified by Organization Details LastModified Time atorvastatin 40 mg tablet TAKE 1 TABLET BY MOUTH ONCE DAILY active Not Available Not Available No t Available hydrocodone 5 mg-acetaminoph en 325 mg tablet TAKE 1 TO 2 TABLETS BY MOUTH EVERY 4 HOURS NEEDED FOR PAIN . DO NOT EXCEED 8 PER 24 HOURS active Not Available Not Available No t Available pantoprazole 40 mg tablet,delayed release TAKE 1 TABLET BY MOUTH ONCE DAILY active Not Available Not Available No t Available Vitals Date Recorded Body weight Heart rate Oxygen saturation Oxygen saturation in Arterial blood by Pulse oximetry Systolic blood pressure Diastolic blood pressure Provider Name and Address Organization Details Last Updated DateTime 4 95467.1 5 g 86 /min 97 % 97 % 124 mm[Hg] 70 mm[Hg] Ines powell [facility] 13:06:58 Social History Question Answer Notes LastModified by Organizat ion Details LastModified Time Tobacco Smoking Status Current Every Day Smoker Not Available Health Note 04/18/2024 12:57:14 Do You Have An Advance Directive? Yes [email or web address] Information not available 04/18/2024 What Is Your Level Of Alcohol Consumption? None [email or web address] Information not available 04/18/2024 What Is Your Level Of Caffeine Consumption? Heavy [email or web address] Information not available 04/18/2024 What Is Your Code Status? DNR [email or web address] Information not available 04/18/2024 Are You Currently Employed? No [email or web address] Information not available 04/18/2024 What Is Your Occupation? None [email or web address] Information not available 04/18/2024 How Many Times Per Week Do You Exercise? 3-4 Times Per Week [email or web address] Information not available 04/18/2024 How Many Packs Per Day (PPD)? 1 Pack Per Day [email or web address] Information not available 04/18/2024 How Long Have You Smoked? 30 Years [email or web address] Information not available 04/18/2024 What Was The Date Of Your Most Recent Tobacco Screening? 04/25/2024 [email or web address] Information not available 04/18/2024 What Is Your Relationship Status? [email or web address] Information not available 04/18/2024 Do You Use Any Illicit Or Recreational Drugs? No [email or web address] Information not available 04/18/2024 Sex: Unknown Functional Status Question Answer Note LastModified by Organization D etails LastModified Time What is your exercise level? Moderate [email or web address] Information not available 04/18/2024 Mental Status None recorded. Family History Relationship Description Onset Age of this Age Resolved Age Notes LastModified by Organization Details LastModified Time Mother Alzheimer's disease [email or web address] Not available 2023 12:57:13 Mother Arthritis [email or web address] Not available 04/18/2024 12:57:13 Mother Diabetes mellitus [email or web address] Not available 2023 12:57:13 Mother Heart disease [email or web address] Not available 2023 12:57:13 Mother Hypertensive disorder [email or web address] Not available 2023 12:57:13 Mother Hypercholest erolemia [email or web address] Not available 2023 12:57:13 Father Alzheimer's disease [email or web address] Not available 2023 12:57:13 Father Arthritis [email or web address] Not available 04/18/2024 12:57:13 Father Heart disease [email or web address] Not available 2023 12:57:13 Father Hypertensive disorder [email or web address] Not available 2023 12:57:13 Father Hypercholest erolemia [email or web address] Not available 2023 12:57:13 Brother Alzheimer's disease [email or web address] Not available 2023 12:57:13 Brother Arthritis [email or web address] Not availabl e 04/18/2024 12:57:13 Brother Diabetes mellitus [email or web address] Not available 2023 12:57:13 Brother Hypercholest erolemia [email or web address] Not available 2023 12:57:13 Medical History Condition Response Attention-deficit Hyperactivity Disorder N High Blood Pressure N Thyroid Problems N COPD Y Depression N Anemia N Diabetes N Anxiety Disorder N Bleeding Disorder N Arthritis Y Hyperlipidemia N Cancer N Stroke Y Asthma N Seizures N Heart Disease Y Fibromyalgia N Osteoporosis N Kidney Disease N Gynecological HistoryNo gynecological history recorded. Obstetrics History GPAL:G 0 P 0 0 0 0 Past Encounters Encounter ID Performer Location Encounter Start Date Encounter Closed Date Diagnosis/Indication Diagnosis SNOMED-CT Code Diagnosis ICD10 Code Diagnosis Note [id number] Shawn Burnett, TEST DEPARTMENT HELPER, UTILIZATION REVIEW RN [facility] [address] [place] [address] 04/25/2024 12:48:16 04/25/2024 13:38:57 Polyneuropathy 56310420 G62.9 Health Concerns Section Related Observation LastModified by Organization Detai ls LastModified Time None Recorded Concern Status LastModified by Organization Details LastModified Time None Recorded Advance Directives Directive Y: Payers Insurance Date Sequence Insurance Name Policy Number Policy Laura Covered Member ID Laura Member ID Guarantor Name 05/04/2024 1 [employer] ([id number]) [id number] Dinah Batres [id number] Dinah Batres Notes Date Note Type Note Provider Name and Address Organization Details Recorded Time 04/25/2024 text/html Ms. Batres is a 53-year-old female who returns to clinic today for follow up of peripheral neuropathy. R eports neuropathy is stable. Symptoms are worse when she consumes a meal with high sugar content. Uses medical marijuana PRN neuropathy. Tried THC cream which did not seem to help must. Reports improved fine motor skills in her hands; was able to successfully tie her shoes recently. She does yoga 2x/ week and gets massage monthly. She is very active and denies falls. She rides her bicycle with pedal assist all over her town. S he has a past medical history of hypertension, prediabetes, COPD, CAD, stroke with residual left-sided weakness, pancreatitis, hypokalemia, surgeries on her left elbow and ankle. She also has a history of daily alcohol abuse but has been abstinent for around 3 years, since she had her stroke. She does continue to smoke about 1 pack of cigarettes a day. She denies any history of vitamin deficiency or chemotherapy drug exposure and thyroid disease. Her family history is significant for diabetes and diabetic neuropathy including her mother and brother. She has had a CT of her cervical spine in the past which did show moderate cervical spondylosis. S he has had extensive laboratory work-up for neuropathy including SPEP, Hep C Ab, Complement C4, Complement C3, ARIANNE, DNA Ab, CRP, ESR, SSA/SSB Ab, Folic Acid, Vitamin B12, CBC, Vitamin B1 all unremarkable. 10/20/2023 EMG/NCV shows mild bilateral carpal tunnel syndrome, moderate diffuse sensorimotor peripheral neuropathy, no acute denervation. C MP showed creatinine 1.44 and ALP 182. Shawn Burnett, TEST DEPARTMENT HELPER, UTILIZATION REVIEW RN [address] [place] [address], [phone], [facility] 05/03/2024 13:39:39 OBGyn Episode No OBEpisode recorded.
--- OUTSIDE RECORDS SUMMARY | 2024-11-01 08:40 | XMS_ITS | Encounter Summary ---
Author Organization [facility] Address [facility] [place] [address] Care Team Providers Care Hydro Generation Supervisor Name Role Phone Mazin Meehan MD Primary Care Provider [phone] Reason for Visit * Auth/Cert (Routine) Specialty Diagnoses / Procedures Referred By Contac t Referred To Contact Diagnoses Sepsis; HOLLY Procedures N/A Derrek Alba MD [address] [place] [address] Phone: tel: fax: Referral ID Status Reason Start Date Expiration Date Visits Re quested Visits Authorized [id number] 1 1 Encounter Details Date Type Department Care Team (Latest Contact Info) Description 01/22/2023 Hospital Encounter Derrek Alba MD [address] [place] [address] Social History Tobacco Use Types Packs/Day Years Used Date Smoking Tobacco: Every Day Cigarettes Smokeless Tobacco: Never Comments:patient dosent want to stop smoking Alcohol Use Standard Drinks/Week Comments No 0 (1 standard drink = 0.6 oz pur e alcohol) sober [address] [facility] Utilities Answer Date Recorded In the past 12 months has e [employer], gas, oil, or water company threatened to [...] place to sleep or slept in a custodial (including now)? No 01/26/2023 Housing Stability Vital Sign Answer Oleg e Recorded In the last 12 months, was t here a time when you were not able to pay the mortgage or rent on time? No 10/03/2023 In the past 12 months, how m any times have you moved where you were living? 1 10/03/2023 At any time in the past 12 m [facility], were you homeless or living in a custodial (including now)? No 10/03/2023 Comments No Sex and Gender Information Value Date Recorded Sex Assigned at Not on file Legal Sex Female 11:26 PM CULINARY DIRECTOR Gender Identity Not on file Sexual Orientation [...] Assessment Author Status No 09/03/2020 4:02 AM CULINARY DIRECTOR Activ e * Question Answer Date of Assessment Author Status Are you deaf or do you have serious difficulty hearing No 10/03/2023 5:57 PM Stephy Bermudez RN Act lion Are you blind or do you have serious difficulty seeing, even when wearing glasses? No 10/03/2023 5:57 PM Stephy Bermudez RN [employer] * Calculated C-SSRS Risk Score (Lifetime/Recent) Answer Date of Assessment Author Status No Risk Indicated 10/28/2023 6:55 AM Miguel A Fierro RN Active * [place] Suicide Severity Rating Scale (Screener/Recent Self-Report) Question Answer Date of Assessment Author Status 1. Wish to be (Past 1 Month) No 10/28/2023 6:55 AM Rebecca Fierro RN Active 2. Non-Specific Active Suicidal Thoughts (Past 1 Month) No 10/28/2023 6:55 AM Rebecca Fierro RN Active 6. Suicidal Behavior (Lifetime) No 10/28/2023 6:55 AM Rebecca Fierro RN Active documented as of this encounter Mental Status * Question Answer Entry Date Author Status Because of a physical, mental, or emotional condition, do you have serious difficulty concentrating, remembering, or making decisions? No 10/03/2023 5:57 PM CDT Stephy Lee R N Active documented in this encounter Plan of Treatment Not on file documented as of this encounter Goals Goal Patient Goal Type Associated Problems Recent Progress Patient-Stated? Author Safety - demonstrates understanding of home safety measures Lifestyle Vickie Mendez RN Safety Patient/family will have appropriate support at home upon discharge Lifestyle Vickie Mendez RN documented as of this encounter Visit Diagnoses Not on filedocumented in this encounter Care Teams Hydro Generation Supervisor Relationship Specialty Start Date End Date Mazin Meehan MD [address] [place] [address] PCP - General INTERNAL MEDICINE 05/17/19 documented as of this encounter
--- OUTSIDE RECORDS SUMMARY | 2024-11-01 08:40 | XMS_ITS | Encounter Summary ---
Author Organization [facility] Address [address] [facility] [place] [address] Phone Care Team Providers Care Arch Cushion Skiving Machine Operator Name Role Phone Mazin Meehan MD Primary Care Provider [phone] Bean Solorio MD Unavailable [phone] Reason for Visit * Reason Comments Medication Refill Encounter Details Date Type Department Care Team (Late st Contact Info) Description 07/21/2020 Refill [facility] - [facility]enterology - [place] [address] [place] [address] Louisa Stanley Mary, PAC [address] [place] [address] Medication Refill Social History Tobacco Use Types [...] Nelly Dangelo CMA - 07/22/2020 8:19 AM BOW MAKER PRODUCTION Patient was notified on 04/24/2020 that she needed an office visit here or her primary doctor can refill. Patient has not been seen in this office as of this date. MAKER PRODUCTION documented in this encounter Plan of Treatment Not on file documented as of this encounter Visit Diagnoses Not on filedocumented in this encounter Care Teams Arch Cushion Skiving Machine Operator Relationship Specialty Start Date End Date Mazin Meehan MD [address] [place] [address] PCP - General Internal Medicine 11/04/18 Bean Solorio MD [address] [address] Hematology 04/21/19 documented as of this encounter
--- OUTSIDE RECORDS SUMMARY | 2024-11-01 08:40 | XMS_ITS | Encounter Summary ---
Author Organization [facility] Address [facility] [place] [address] Care Team Providers Care Stock Car Driver Name Role Phone Mazin Meehan MD Primary Care Provider [phone] Encounter Details Date Type Department Care Team (Late st Contact Info) Description 12/03/2018 Abstract SFL CONVERSION [address] [place] [address] , Generic Conversion, Social History Tobacco Use Types Packs/Day Years Used Date Smoking Tobacco: Never Assessed Comments Unknown Sex and Gender Information Value Date Recorded Sex Assigned at Not on file Legal Sex Female 11:26 PM STAGECRAFT TEACHER Gender Identity Not on file Sexual Orientation Not on file documented as of this encounter Plan of Treatment Not on file documented as of this encounter Visit Diagnoses Not on filedocumented in this encounter Additional Health Concerns Infection Onset Date Last Indicated Resolved Time COVID-19 Rule Out 09/03/2020 09/03/2020 09/03/2020 10:50 AM STAGECRAFT TEACHER documented as of this encounter Care Teams Stock Car Driver Relationship Specialty Start Date End Date Mazin Meehan MD [address] [place] [address] PCP - General INTERNAL MEDICINE 05/17/19 documented as of this encounter
--- OUTSIDE RECORDS SUMMARY | 2024-11-01 08:40 | XMS_ITS | Data Portability ---
Author Organization [place] - [facility] [employer], Main Office Address [address] [place] [address] Assessment No assessment recorded. Plan of Treatment Reminders Order Date Submit Date Provider Last Modified By Organization Details Last Modified Time Details Appointments None recorded. Lab urinalysis , dipstick [email or web address] [facility], [address] [facility], [place], [address], 15:08:12 Referral None recorded. Procedures None recorded. Surgeries None recorded. Imaging None recorded. Medication Orders None recorded. Patient TargetsNo targets recorded. Patient InstructionsNo instructions recorded. Reason for Referral None Reported. Results Created Date Observation Date Name Description Value Unit Range Abnormal Flag Note LastModifiedBy Organization Detail LastModifiedTime 02/03/2002/02/2023 urina lysis , dipst ick Leukocytes (reference range: negative willa/ l) Small Not Available [facility]gm g [facility] [address] [address], [address], 02/02/2023 14:53:19 02/03/2002/02/2023 urina lysis , dipst ick Nitrite (reference rage: negative mg/dl) negati ve Not Available [facility] [address] [facility] [address], [address], 02/02/2023 14:53:19 02/03/20 23 02/02/2023 urina lysis , dipst ick Urobilinogen (reference range: 0.2-1 mg/dl) 0.2 Not Available [facility] [address], [place], [address], 02/02/2023 14:53:19 02/03/2002/02/2023 urina lysis , dipst ick Protein (reference range: negative mg/dl) Small Not Available [facility] [address], [place], [address], 02/02/2023 14:53:19 02/03/20 23 02/02/2023 urina lysis , dipst ick pH (reference range: 5-7) 6.5 Not Available Ahs_ gmg [facility] [address], [place], [address], 02/02/2023 14:53:19 02/03/20 23 02/02/2023 urina lysis , dipst ick Blood (reference range: negative Braydon/ l) Large Not Available [facility] [address], [place], [address], 02/02/2023 14:53:19 02/03/20 23 02/02/2023 urina lysis , dipst ick Specific Mcalpin (reference range: 1.005-1.030) 1.020 Not Available Ahs _gmg [facility] [address] [place] [address] [address], [place], [address], 02/02/2023 14:53:19 02/03/2002/02/2023 urina lysis , dipst ick Ketone (reference range: negative mg/dl) Negati ve Not Available [facility] [address] [place] [address] [address], [place], [address], 02/02/2023 14:53:19 02/03/20 23 02/02/2023 urina lysis , dipst ick Bilirubin (reference range: negative mg/dl) Negati ve Not Available [facility] [place] [address] [address], [place], [address], 02/02/2023 14:53:19 02/03/20 23 02/02/2023 urina lysis , dipst ick Glucose (reference range: negative mg/dl) Negati ve Not Available [facility] [place] [address] [place] [address] [address] [address], [place], [address], 02/02/2023 14:53:19 02/03/20 23 02/02/2023 urina lysis , dipst ick Appearance Clear Not Available [facility] [place] [address] [place] [address] [address] [facility], [place], [address], 02/02/2023 14:53:19 02/03/20 23 02/02/2023 urina lysis , dipst ick Color Yellow Not Available [facility] [place] [address] [facility] [address] [address], [place], [address], 02/02/2023 14:53:19 02/16/20 23 02/15/2023 XR, kidne y + urete r + bladd er No observ ation record ed. [email or web address] [facility] [address] [place], [address], 02/16/2023 16:36:26 Result Notes None recorded. Problems Name Problem SNOMED Code Status Onset Date Resolution Date Notes Provider Name and Address Organization Details Recorded Time Kidney stone 38563385 Active 023 ARNOLD Stiles, [employer] 02/02/2023 14:53:20 Problem Notes None recorded. Procedures Surgical History Date Name Laterality Status Provider Name and Address Organization Details Recorded Time Ankle Surgery completed BRAD Perera [employer] 02/02/2023 14:53:57 procedure on elbow completed BRAD Perera [place] - [facility] 02/02/2023 14:54:10 Hysterectomy completed Vasiliy Mitchell Manuel [place] - [facility] 02/02/2023 14:54:28 Imaging Results Imaging Date Name Status LastModified by Organiz ation Details LastModified Time 02/15/2023 XR, kidney + ureter + bladder completed [facility] [address] [place], [address], 02/16/2023 16:36:26 Procedure Notes None recorded. Medical [...] Updated DateTime 02/02/2023 162.56 cm BRAD Perera [employer] 02/02/2023 14:48:13 Date Recorded Heart rate Oxygen saturation Oxygen saturation in Arterial blood by Pulse oximetry Body mass index (BMI) Body weight Body temperature Systolic blood pressure Diastolic blood pressure Provider Name and Address Organization Details Last Updated DateTime 3 99 /min 98 % 98 % 23.7 kg/m2 85237.7 5 g 97.9 [degF] 129 mm[Hg] 77 mm[Hg] Clari Bae MA [email or web address] [facility] [employer] 14:52:58 Social History Question Answer Notes LastModified by Organizat ion Details LastModified Time Tobacco Smoking Status Current Every Day Smoker BRAD Perera [facility], [employer] 02/02/2023 14:53:44 What Is Your Level Of Alcohol Consumption? None [email or web address] Information not available 02/02/2023 What Is Your Level Of Caffeine Consumption? Moderate [email or web address] Information not available 02/02/2023 What Was The Date Of Your Most Recent Tobacco Screening? 02/02/2023 [email or web address] Information not available 02/02/2023 How Much Tobacco Do You Smoke? 1 PPD [email or web address] Information not available 02/02/2023 Do You Use Any Illicit Or Recreational Drugs? No Information not available 02/02/2023 Has Tobacco Cessation Counseling Been Provided? No [email or web address] Information not available 02/02/2023 Do You Or Have You Ever Used Any Other Forms Of Tobacco Or Nicotine? No [email or web address] Information not available 02/02/2023 Sex: Unknown Functional Status None recorded. Mental Status None recorded. Family History Relationship Description Onset Age of this Age Resolved Age Notes LastModified by Organization Details LastModified Time Unspecified Relation Diabetes mellitus [email or web address] Not available 2022 14:52:09 Unspecified Relation Hypertensive disorder [email or web address] Not available 2022 14:52:17 Unspecified Relation Heart disease Not available 2022 14:52:28 Unspecified Relation Kidney stone [email or web address] Not available 14:52:58 Medical History Condition Response KIDNEY DISEASE Y EMPHYSEMA Y KIDNEY STONES Y COPD Y STROKE/TIA Y Gynecological HistoryNo gynecological history recorded. Obstetrics History GPAL:G 0 P 0 0 0 0 Past Encounters Encounter ID Performer Location Encounter Start Date Encounter Closed Date Diagnosis/Indication Diagnosis SNOMED-CT Code Diagnosis ICD10 Code Diagnosis Note [id number] Talha Stephens MD [facility] [address] [address] 02/02/2023 14:22:59 02/02/2023 15:07:11 Kidney stone 66711317 N20.0 8mm stone sp stent, went over [...] Laura Member ID Guarantor Name 02/02/2023 1 [facility] - DOS ON OR AFTER 20 (MEDICAID REPLACEMENT - HMO) Dinah Batres [id number] Dinah Batres Notes Date Note Type Note Provider Name and Address Organization Details Recorded Time 02/02/2023 text/html Kidney StoneReported bypatient.Notes:Pt was in [place] with infected left prox stone, pneumonia and renal failure. She had left stent and comes here for treatment. She has some stent irritation, no flank pain, fever or chills. Talha Stephens MD [address] [place] [address], [place], [address], [place] [employer] [facility] 02/02/2023 15:08:15 OBGyn Episode No OBEpisode recorded.
--- OUTSIDE RECORDS SUMMARY | 2024-11-01 08:41 | XMS_ITS | Clinical Summary ---
Author Organization [facility] Address [address], [facility] [address] [place] [address] Phone Care Team Providers Care Power Plant Operations Manager Name Role Phone Mazin Meehan MD Primary Care Provider [phone] Bean Solorio MD Unavailable [phone] Allergies Active Allergy Reactions Criticality Noted Date Comments Citric Acid Swelling High 11/17/2018 Gramineae Pollens Swelling Low 11/17/2018 [place] Swelling Medium 11/17/2018 Medications POTASSIUM CHLORIDE PO [...] Take 1 Tablet by mouth daily. Active [place]-3 Fatty Acids (FISH OIL PO) Take 1 [...] 94 02/10/2024 3:23 PM CDT Temperature 36 C (96.8 F) 01/03/2019 11:51 AM CDT Respiratory Rate 12 02/10/2024 3:23 PM CDT Oxygen Saturation 97% 02/10/2024 3:23 PM CDT Inhaled Oxygen Concentration - - Weight 61.2 kg (135 lb) 02/07/2024 9:00 AM CDT Height 160 cm (5' 3 ) 02/07/2024 9:00 AM CDT Body Mass Index 23.91 02/07/2024 9:00 AM CDT Plan of Treatment Health Maintenance Due Date Last Done Comments Mammogram 1968 Hepatitis B Immunization (1 of 3 - 19+ 3-dose series) 09/17/1987 Pneumococcal Immunization (5 0+ years) (1 of 2 - PCV) 09/17/1987 Cologuard 2018 Immunochemical Fecal Occult Blood 2018 Zoster Immunization (1 of 2) 2018 Lung Cancer Screening 01/27/2024 01/26/2023 Influenza Immunization (#1) 2024 04/10/2019 SARS-COV-2 Immunization (2 - season) 2024 04/24/2021 Colonoscopy 02/09/2034 02/10/2024, 01/03/2019 [...] DETECTED NON DETECTED 11/29/2018 4:20 PM CDT [facility] Comment: IGM Antibodies to HAV not detected. Does not exclude early acute or recovered HAV infection. HEP B CORE AB (IGM) NON DETECTED NON DETECTED 11/29/2018 4:20 PM CDT [facility] Comment: IGM anti-HBC not detected. Does not exclude the possibility of exposure to or infection with HBV. HEPATITIS B SURFACE ANTIGEN NON DETECTED NON DETECTED 11/29/2018 4:20 PM CDT [facility] Comment: A nonreactive test result [...] 0.13 <1 S/CO 11/29/2018 4:20 PM CDT [facility] Comment: Signal/Cutoff ratio < 0.79 is Nondetected Signal/Cutoff ratio 0.80-0.99 is Grayzone Signal/Cutoff ratio > 0.99 is Detected Supplemental assays are recommended if signal/cutoff ratio is >/=1.00. Signal/cutoff ratio result >/= 5.00 is 97% predictive of positivity for recombinant immunoblot assay (RIBA) and will be reported to the [place] Department of Public Health as required. Blood specimen (specimen) Venipuncture / Unknown 11/29/2018 8:54 AM CDT 11/29/2018 9:23 AM CDT us Huma Bruce X RAY CONTROL EQUIPMENT REPAIRER, GLAZING SUPERINTENDENT HEMATOLOGY ORDERA BLES Final Result [facility] [address] [place] [address], from Last 3 Months or Most Recently Relevant to Health Maintenance Insurance [employer] Care Teams Power Plant Operations Manager Relationship Specialty Start Date End Date Mazin Meehan MD [address] [place] [address] PCP - General Internal Medicine 11/04/18 Bean Solorio MD [address] [address] Hematology 04/21/19
[2024-11-01 14:23] LABS: Alanine Aminotransferase 25 U/L (6-35); Albumin Level 4.1 g/dL (3.5-5.1); Alkaline Phosphatase 124 U/L (38-126); Anion Gap 6 mmol/L (4-12); Aspartate Amino Transferase 29 U/L (14-36); Bilirubin,Total 0.3 mg/dL (0.2-1.3); Blood Urea Nitrogen 21 mg/dL (7-17); Calcium 9.4 mg/dL (8.4-10.2); Carbon Dioxide 25 mmol/L (22-30); Chloride 112 mmol/L (98-107); Cholesterol 105 mg/dL (0-200); Estimated Glomerular Filt Rate 59; Glucose 103 mg/dL (65-110); HDL Direct 34 mg/dL; LDL Cholesterol Calculated 42 mg/dL (<130); Osmolality Calculated 299 mOsm/kg (285-295); Potassium 4.1 mmol/L (3.4-5.0); Sodium 143 mmol/L (137-145); Total Protein 6.8 g/dL (6.3-8.2); Triglycerides 143 mg/dL (<150)
== END 2024-11-01 08:30 | disposition home or self-care (01) ==
LOC: CHSLAB 08:34
PROVIDERS: PCP Internal Medicine; Visit Provider Internal Medicine Cardiovascular Disease
DX: E78.5 Hyperlipidemia, unspecified (principal)
CPT/HCPCS: 36415; 80053; 80061

== ENCOUNTER 2024-11-17 11:58 | Outpatient (CLI) | payer OTHER, SELFPAY ==
--- NOTE | ~2024-11-17 | XR_ITS ---
EXAMINATION: XR chest 2V 11/17/2024 12:16 INDICATION: Renal and liver donor. PROCEDURE: 2 view chest COMPARISON: Comparison to multiple prior studies sequentially, with oldest reviewed study dated 08/2018. FINDINGS: The lungs are clear. The cardiomediastinal silhouette is within normal limits. There are no pleural effusions. There is no pneumothorax suspected. IMPRESSION: 1: NO ACUTE CARDIOPULMONARY DISEASE. Reviewed, dictated and finalized at location B.
--- OUTSIDE RECORDS SUMMARY | 2024-11-17 12:06 | XMS_ITS | Data Portability ---
Author Organization [place] - [facility] [employer], Main Office Address [address] [place] [address] Assessment No assessment recorded. Plan of Treatment Reminders Order Date Submit Date Provider Last Modified By Organization Details Last Modified Time Details Appointments None recorded. Lab urinalysis , dipstick 2022 023 [email or web address] [facility], [address] [facility], [place], [address], 15:08:12 Referral None recorded. Procedures None recorded. [...] willa/ l) Small Not Available [facility] [address], [place], [address], 02/02/2023 14:53:19 02/03/2002/02/2023 urina lysis , dipst ick Nitrite (reference rage: negative mg/dl) negati ve Not Available [facility] [address] [facility] [address], [place], [address], 02/02/2023 14:53:19 02/03/20 23 02/02/2023 urina lysis , dipst ick Urobilinogen (reference range: 0.2-1 mg/dl) 0.2 Not Available [facility] [address], [place], [address], 02/02/2023 14:53:19 02/03/2002/02/2023 urina lysis , dipst ick Protein (reference range: negative mg/dl) Small Not Available [facility] [address], [place], [address], 02/02/2023 14:53:19 02/03/20 23 02/02/2023 urina lysis , dipst ick pH (reference range: 5-7) 6.5 Not Available [facility] [address], [place], [address], 02/02/2023 14:53:19 02/03/20 23 02/02/2023 urina lysis , dipst ick Blood (reference range: negative Braydon/ l) Large Not Available [facility] [address], [place], [address], 02/02/2023 14:53:19 02/03/20 23 02/02/2023 urina lysis , dipst ick Specific [place] (reference range: 1.005-1.030) 1.020 Not Available [facility] [address] [place] [address] [address], [place], [address], 02/02/2023 14:53:19 02/03/2002/02/2023 urina lysis , dipst ick Ketone (reference range: negative mg/dl) Negati ve Not Available [facility] [address] [place] [address] [address], [place], [address], 02/02/2023 14:53:19 02/03/20 23 02/02/2023 urina lysis , dipst ick Bilirubin (reference range: negative mg/dl) Negati ve Not Available [facility] [place] [address] [address], [place], [address], 02/02/2023 14:53:19 02/03/20 23 02/02/2023 urina lysis , dipst ick Glucose (reference range: negative mg/dl) Negati ve Not Available [facility] [address] [place] [address] [address] [address], [place], [address], 02/02/2023 14:53:19 02/03/20 23 02/02/2023 urina lysis , dipst ick Appearance Clear Not Available [facility] [address] [place] [address] [address] [facility], [place], [address], 02/02/2023 14:53:19 02/03/20 23 02/02/2023 urina lysis , dipst ick Color Yellow Not Available [facility] [place] [address] [facility] [address] [address], [place], [address], 02/02/2023 14:53:19 02/16/20 23 02/15/2023 XR, kidne y + urete r + bladd er No observ ation record ed. [email or web address] [facility] [address] [place], [address], 02/16/2023 16:36:26 Result Notes None recorded. Problems Name Problem SNOMED Code Status Onset Date Resolution Date Notes Provider Name and Address Organization Details Recorded Time Kidney stone 23155183 Active 023 ARNOLD Stiles, [employer] 02/02/2023 14:53:20 Problem Notes None recorded. Procedures Surgical History Date Name Laterality Status Provider Name and Address Organization Details Recorded Time Ankle Surgery completed BRAD Perera [employer] 02/02/2023 14:53:57 procedure on elbow completed BRAD Perera [place] - [facility] 02/02/2023 14:54:10 Hysterectomy completed Vasiliy Mitchell Manuel [place] - [facility] 02/02/2023 14:54:28 Imaging Results Imaging Date Name Status LastModified by Organiz ation Details LastModified Time 02/15/2023 XR, kidney + ureter + bladder completed [email or web address] [facility] [address] [place], [address], 02/16/2023 16:36:26 Procedure Notes None recorded. Medical [...] Updated DateTime 02/02/2023 162.56 cm BRAD Perera [place] [employer] [facility] 02/02/2023 14:48:13 Date Recorded Heart rate Oxygen saturation Oxygen saturation in Arterial blood by Pulse oximetry Body mass index (BMI) Body weight Body temperature Systolic blood pressure Diastolic blood pressure Provider Name and Address Organization Details Last Updated DateTime 3 99 /min 98 % 98 % 23.7 kg/m2 17086.7 5 g 97.9 [degF] 129 mm[Hg] 77 mm[Hg] Clari Bae MA [facility] [employer] 14:52:58 Social History Question Answer Notes LastModified by [employer] Details LastModified Time Tobacco Smoking Status Current Every Day Smoker BRAD Perera null, [employer] [facility] 02/02/2023 14:53:44 What Is Your Level Of Caffeine Consumption? Moderate [email or web address] Information not available 02/02/2023 What Was The Date Of Your Most Recent Tobacco Screening? 02/02/2023 [email or web address] Information not available 02/02/2023 How Much Tobacco Do You Smoke? 1 PPD [email or web address] Information not available 02/02/2023 Has Tobacco Cessation Counseling Been Provided? No [email or web address] Information not available 02/02/2023 Sex: Unknown Functional Status Question Answer Note LastModified by Organizat ion Details LastModified Time Do you use any illicit or recreational drugs? No Information not available 02/02/2023 Do you or have you ever used any other forms of tobacco or nicotine? No [email or web address] Information not available 02/02/2023 What is your level of alcohol consumption? None [email or web address] Information not available 02/02/2023 Mental Status None recorded. Family History Relationship Description Onset Age of this Age Resolved Age Notes LastModified by Organization Details LastModified Time Unspecified Relation Diabetes mellitus [email or web address] Not available 2022 14:52:09 Unspecified Relation Hypertensive disorder [email or web address] Not available 2022 14:52:17 Unspecified Relation Heart disease [email or web address] Not available 2022 14:52:28 Unspecified Relation Kidney stone Not available 14:52:58 Medical History Condition Response KIDNEY DISEASE Y EMPHYSEMA Y KIDNEY STONES Y COPD Y STROKE/TIA Y Gynecological HistoryNo gynecological history recorded. Obstetrics History GPAL:G 0 P 0 0 0 0 Past Encounters Encounter ID Performer Location Encounter Start Date Encounter Closed Date Diagnosis/Indication Diagnosis SNOMED-CT Code Diagnosis ICD10 Code Diagnosis Note [id number] Talha Stephens MD [facility] [address] [address] 02/02/2023 14:22:59 02/02/2023 15:07:11 Kidney stone 94774934 N20.0 8mm stone sp stent, went over [...] Laura Member ID Guarantor Name 02/02/2023 1 [facility] - DOS ON OR AFTER 20 (MEDICAID REPLACEMENT - HMO) Dinah Batres [id number] Dinah S Medardo Notes Date Note Type Note Provider Name and Address Organization Details Recorded Time 02/02/2023 text/html Kidney StoneReported bypatient.Notes:Pt was in [place] with infected left prox stone, pneumonia and renal failure. She had left stent and comes here for treatment. She has some stent irritation, no flank pain, fever or chills. Talha Stephens MD [address] [place] [address] [address], [place], [address], [place] [employer] [facility] 02/02/2023 15:08:15 OBGyn Episode No OBEpisode recorded.
--- OUTSIDE RECORDS SUMMARY | 2024-11-17 12:06 | XMS_ITS | Data Portability ---
Author Organization [facility], [address] (MD) Address [address] [place] [address] Care Team Prov[address] Care Court Orderly Name Role Phone SHAW MALAVE Primary Care [...] on this date of service including both ouhk-xh-xemq and kho-vvyo-pd-face time excluding any separately reportable services. [email or web address] [...] and Address Organization Details Recorded Time Polyneuropathy 78856553 Active 2023 Shawn Burnett, [employer], INDUSTRIAL SERVICER [address] [place] [address], [phone], [facility] 13:39:08 Problem Notes None recorded. Procedures Surgical [...] Name and Address Organization Details Recorded Time 148762 meloxicam medicatio n other Not available Not available 07/26/20232018 68941 RxNorm React ion: Other : unkno wn; Comme nt: Annot ation s: CELESTE Powell (JAVIER) , BRIAN Y 2018 1:53P M Abdom inal pain; ; Not Available [facility] 23:16:40 [id number] citric acid medicatio n swelling Not available Not available 07/26/20232018 54202 RxNorm React ion: Swell ing; Not Available [facility] 23:16:40 Medications Name Sig Start Date Stop [...] Address Organization Details Last Updated DateTime 4 80803.1 5 g 86 /min 97 % 97 % 124 mm[Hg] 70 mm[Hg] Ines powell [facility] 13:06:58 Social History Question Answer Notes LastModified by Organizat ion Details LastModified Time Tobacco Smoking Status Current Every Day Smoker Not Available Health Note 04/18/2024 12:57:14 Do You Have An Advance Directive? Yes [email or web address] Information not available 04/18/2024 What Is Your Level Of Caffeine Consumption? Heavy [email or web address] Information not available 04/18/2024 What Is Your Code Status? DNR [email or web address] Information not available 04/18/2024 How Many [...] Relationship Status? [email or web address] Information not available 04/18/2024 Sex: Unknown Functional Status Question Answer Note LastModified by Organizat ion Details LastModified Time Do you use any illicit or recreational drugs? No [email or web address] Information not available 04/18/2024 What is your level of alcohol consumption? None [email or web address] Information not available 04/18/2024 Are you currently employed? No [email or web address] Information not available 04/18/2024 What is your occupation? None [email or web address] Information not available 04/18/2024 What is your exercise level? Moderate [email or web address] [...] available 2023 12:57:13 Medical History Condition Response Diabetes N Anxiety Disorder N Bleeding Disorder N Attention-deficit Hyperactivity Disorder N High Blood Pressure N Arthritis Y Hyperlipidemia N Cancer N Stroke Y Thyroid Problems N Asthma N Depression N COPD Y Anemia N Seizures N Heart Disease Y Fibromyalgia N Osteoporosis N Kidney Disease N Gynecological HistoryNo gynecological history recorded. Obstetrics History GPAL:G 0 P 0 0 0 0 Past Encounters Encounter ID Performer Location Encounter Start Date Encounter Closed Date Diagnosis/Indication Diagnosis SNOMED-CT Code Diagnosis ICD10 Code Diagnosis Note [id number] Shawn Burnett, CHEMIST BIOLOGICAL, INDUSTRIAL SERVICER [facility] ([place]) [address] [place] [address] 04/25/2024 12:48:16 04/25/2024 13:38:57 Polyneuropathy 48459312 G62.9 Health Concerns Section Related Observation LastModified by Organization Detai ls LastModified Time None Recorded Concern Status LastModified by Organization Details LastModified Time None Recorded Advance Directives Directive Y: Payers Insurance Date Sequence Insurance Name Policy Number Policy Laura Covered Member ID Laura Member ID Guarantor Name 05/04/2024 1 [employer] (O) [id number] Dinah Batres [id number] Dinah Bautistaley Notes Date Note Type Note Provider Name [...] creatinine 1.44 and ALP 182. Shawn Burnett, CHEMIST BIOLOGICAL, INDUSTRIAL SERVICER [address] [place] [address], [address], [facility] 05/03/2024 13:39:39 OBGyn Episode No OBEpisode recorded.
--- OUTSIDE RECORDS SUMMARY | 2024-11-17 12:06 | XMS_ITS | Continuity of Care Document ---
Author Organization [facility] Address [address] [place] [address] Phone Care Team Providers Care Top Closer Name Role Phone Charla Nj Unavailable Unavailab le Procedures Procedure Date ENDOSCOPIC ULTRASOUND EXAM Advance Directives Directive Yes / No Effective Date File Name No Information Encounters Encounter Description Practice Location Reason(s) For Visit Diagnoses Date Provider Providers Copied on Encounter [facility], [address], [place], [place], [address], tel:[phone] [facility] No Information 4 Keenan Dunham. [address] [place], [place], [id number] , [place]. tel: [phone] [facility], [address], [place], [place], [address], [place] tel:[phone] [facility] No Information 9 [address]. [address] , [address], [place], [address], [place]. tel: [phone] Referring Provider: Mazin Meehan, [address], [place], [address]. tel:[phone] [facility], [address], [place], [place], [address], [place] tel:[phone] [facility] Dilation of biliary tract 9 [address], [address], [place], [address], [place]. tel: [phone] Family History Family Member Type Diagnosis Age At Onset No Information Payers Payer name Insurance type Covered republican ID Bryan little(s) [facility] ACCESS BL [id number] Social History Type Description Quantity Date Captured Comments Alcohol Use Details Unknown Caffeine Use Details Unknown Tobacco Use Status No Information Smoking Status No Information Sex Female Chief Complaint And Reason For Visit No Information Reason For Referral Reason For Referral No Information Plan Of Treatment Date Type Action Status Referral Ordered: GI ENDOSCOPIC ULTRASOUND Appointment date/timeframe: 02/15/2019 ordered History Of Present Illness Encounter Date Complaint History Of Prese nt Illness No Information Functional Status Date Functional Assessmen t No Information Instructions Date Instruction Additional Infor mation No Information Assessments Type Assessment Date No Information Patient Care Teams Name Effective Dates (start - stop) Status Members No Information
--- OUTSIDE RECORDS SUMMARY | 2024-11-17 12:06 | XMS_ITS | Encounter Summary ---
Author Organization [facility] Address [address] [place] [address] [place] [address] Phone Care Team Providers Care Scientific Technical Writer Name Role Phone Mazin Meehan MD Primary Care Provider [phone] Bean Solorio MD Unavailable [phone] Reason for Visit * Reason Comments Medication Refill Encounter Details Date Type Department Care Team (Late st Contact Info) Description 07/21/2020 Refill [facility] - [facility] - [place] [address] [place] [address] Louisa Stanley Mary, PAC [address] [place] [address] Medication Refill Social History Tobacco Use Types [...] Nelly Dangelo CMA - 07/22/2020 8:19 AM INTERNAL SALES ENGINEER Patient was notified on 04/24/2020 that she needed an office visit here or her primary doctor can refill. Patient has not been seen in this office as of this date. RNAL SALES ENGINEER documented in this encounter Plan of Treatment Not on file documented as of this encounter Visit Diagnoses Not on filedocumented in this encounter Care Teams Scientific Technical Writer Relationship Specialty Start Date End Date Mazin Meehan MD [address] [place] [address] PCP - General Internal Medicine 11/04/18 Bean Solorio MD [address] [address] Hematology 04/21/19 documented as of this encounter
--- OUTSIDE RECORDS SUMMARY | 2024-11-17 12:06 | XMS_ITS | Clinical Summary ---
Author Organization [facility] Address [address], [facility] [address] [place] [address] Phone Care Team Providers Care Film Processing Shift Supervisor Name Role Phone Mazin Meehan MD Primary Care Provider [phone] Bean Solorio MD Unavailable [phone] Allergies Active Allergy Reactions Criticality Noted Date Comments Citric Acid Swelling High 11/17/2018 Gramineae Pollens Swelling Low 11/17/2018 Clinch Swelling Medium 11/17/2018 Medications POTASSIUM CHLORIDE PO [...] Take 1 Tablet by mouth daily. Active [place]-3 Fatty Acids (FISH OIL PO) Take 1 [...] DETECTED NON DETECTED 11/29/2018 4:20 PM CDT [facility] Comment: IGM Antibodies to HAV not detected. Does not exclude early acute or recovered HAV infection. HEP B CORE AB (IGM) NON DETECTED NON DETECTED 11/29/2018 4:20 PM CDT [facility] Comment: IGM anti-HBC not detected. Does not exclude the possibility of exposure to or infection with HBV. HEPATITIS B SURFACE ANTIGEN NON DETECTED NON DETECTED 11/29/2018 4:20 PM CDT [facility] Comment: A nonreactive test result does not [...] <1 S/CO 11/29/2018 4:20 PM CDT [facility] Comment: Signal/Cutoff ratio < 0.79 is Nondetected Signal/Cutoff ratio 0.80-0.99 is Grayzone Signal/Cutoff ratio > 0.99 is Detected Supplemental assays are recommended if signal/cutoff ratio is >/=1.00. Signal/cutoff ratio result >/= 5.00 is 97% predictive of positivity for recombinant immunoblot assay (RIBA) and will be reported to the [place] Department of Public Health as required. Blood specimen (specimen) Venipuncture / Unknown 11/29/2018 8:54 AM CDT 11/29/2018 9:23 AM CDT us Huma Bruce MAGAZINE HAND, SANITIZER HEMATOLOGY ORDERA BLES Final Result [facility] [address] [place] [address], from Last 3 Months or Most Recently Relevant to Health Maintenance Insurance [employer] Care Teams Film Processing Shift Supervisor Relationship Specialty Start Date End Date Mazin Meehan MD [address] [place] [address] PCP - General Internal Medicine 11/04/18 Bean Solorio MD [address] [address] Hematology 04/21/19
--- NOTE | 2024-11-17 12:11 | ECG_ITS ---
Test Date: 2024-11-17 12:23:21 Measurements Intervals [place] Rate: 71 P: 71 MN: 131 QRS: 86 QRSD: 101 T: 53 QT: 369 QTc: 403 Interpretive Statements SINUS RHYTHM No previous ECG available for comparison Electronically Signed On 11-17-2024 12:35:18 CDT by Ewa Yancey M.D.
== END 2024-11-17 11:59 | disposition home or self-care (01) ==
PROVIDERS: PCP Internal Medicine; Visit Provider Internal Medicine Nephrology
DX: Z01.818 Encounter for other preprocedural examination (principal)
CPT/HCPCS: 71046; 93005

== ENCOUNTER 2024-12-06 09:26 | Outpatient (CLI) | payer OTHER, SELFPAY ==
--- OUTSIDE RECORDS SUMMARY | 2024-12-06 10:27 | XMS_ITS | Clinical Summary ---
Author Organization [facility] Address [address], [facility] [address] [place] [address] Phone Care Team Providers Care Lithopone Charger Name Role Phone Mazin Meehan MD Primary Care Provider Bean Solorio MD Unavailable [phone] Allergies Active Allergy Reactions Criticality Noted Date Comments Citric Acid Swelling High 11/17/2018 Gramineae Pollens Swelling Low 11/17/2018 Malone Swelling Medium 11/17/2018 Medications POTASSIUM CHLORIDE PO [...] Take 1 Tablet by mouth daily. Active [place]-3 Fatty Acids (FISH OIL PO) Take 1 [...] 9:00 AM CDT Height 160 cm (5' 3) 02/07/2024 9:00 AM CDT Body Mass Index 23.91 02/07/2024 9:00 AM CDT Plan of Treatment Health Maintenance Due Date Last Done Comments Mammogram 1968 Hepatitis B Immunization (1 of 3 - 19+ 3-dose series) 09/17/1987 Pneumococcal Immunization (5 0+ years) (1 of 2 - PCV) 09/17/1987 Cologuard 2013 Immunochemical Fecal Occult Blood 2013 Zoster Immunization (1 of 2) 2018 Lung Cancer Screening 01/27/2024 01/26/2023 SARS-COV-2 Immunization (2 - season) 2024 04/24/2021 Influenza Immunization (Seas on Ended) 2025 04/10/2019 Colonoscopy 02/09/2034 02/10/2024, 01/03/2019 Colorectal Cancer Screening 02/09/2034 Respiratory Syncytial Virus (RSV) Immunization (Adult) (1 - 1-dose 75+ series) 09/17/2043 DTaP/Tdap/Td Immunization Discontinued 2019, 11/27/2013 TdaP Immunization Completed 07/07/2019, 11/27/2013 Hepatitis C Virus (HCV) Screening Completed 09/08/2023, 11/29/2018 Human Papillomavirus (HPV) Immunization Aged Out No longer eligible based on patient's age to complete this topic Meningococcal Immunization (ACWY) Aged Out No longer [...] DETECTED NON DETECTED 11/29/2018 4:20 PM CDT [facility] Comment: IGM Antibodies to HAV not detected. Does not exclude early acute or recovered HAV infection. HEP B CORE AB (IGM) NON DETECTED NON DETECTED 11/29/2018 4:20 PM CDT [facility] Comment: IGM anti-HBC not detected. Does not exclude the possibility of exposure to or infection with HBV. HEPATITIS B SURFACE ANTIGEN NON DETECTED NON DETECTED 11/29/2018 4:20 PM CDT [facility] Comment: A nonreactive test result [...] 0.13 <1 S/CO 11/29/2018 4:20 PM CDT [facility] Comment: Signal/Cutoff ratio < 0.79 is Nondetected Signal/Cutoff ratio 0.80-0.99 is Grayzone Signal/Cutoff ratio > 0.99 is Detected Supplemental assays are recommended if signal/cutoff ratio is >/=1.00. Signal/cutoff ratio result >/= 5.00 is 97% predictive of positivity for recombinant immunoblot assay (RIBA) and will be reported to the [place] Department of Public Health as required. Blood specimen (specimen) Venipuncture / Unknown 11/29/2018 8:54 AM CDT 11/29/2018 9:23 AM CDT us Huma Bruce BRICK KILN BURNER, ENROBING MACHINE OPERATOR HEMATOLOGY ORDERA BLES Final Result [facility] [address] [place] [address], from Last 3 Months or Most Recently Relevant to Health Maintenance Insurance [employer] Care Teams Lithopone Charger Relationship Specialty Start Date End Date aMzin Meehan MD [address] [place] [address] PCP - General Internal Medicine 11/04/18 Bean Solorio MD [address] [address] Hematology 04/21/19
--- OUTSIDE RECORDS SUMMARY | 2024-12-06 10:27 | XMS_ITS | Continuity of Care Document ---
Author Organization [facility] Address [address] [place] [address] Phone Care Team Providers Care Sap Basis Name Role Phone Charla Nj Unavailable Unavailab le Procedures Procedure Date ENDOSCOPIC ULTRASOUND EXAM Advance Directives Directive Yes / No Effective Date File Name No Information Encounters Encounter Description Practice Location Reason(s) For Visit Diagnoses Date Provider Providers Copied on Encounter [facility], [address], [place], [place], [address], tel:[phone] [facility] No Information 4 Keenan Dunham. [address] [place], [place], [address] , [place]. tel: [phone] [facility], [address], [place], [place], [address], [place] tel:[phone] [facility] No Information 9 [address]. [address] , [address], [place], [address], [place]. tel: [phone] Referring Provider: Mazin Meehan, [address], [place], [address]. tel:[phone] [facility], [address], [place], [place], [address], [place] tel:[phone] [facility] Dilation of biliary tract 9 [address], [address], [place], [address], [place]. tel: [phone] Family History Family Member Type Diagnosis Age At Onset No Information Payers Payer name Insurance type Covered green party ID Bryan little(s) [facility] ACCESS BL [id number] Social History Type Description Quantity Date Captured [...]
--- OUTSIDE RECORDS SUMMARY | 2024-12-06 10:27 | XMS_ITS | Encounter Summary ---
Author Organization [facility] Address [address] [facility] 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 Patient has not been seen in this office as of this date. UNT RETENTION REPRESENTATIVE documented in this encounter Plan of Treatment Not on file documented as of this encounter Visit Diagnoses Not on filedocumented in this encounter Care Teams Ceo Relationship Specialty Start Date End Date Mazin Meehan MD [address] [place] [address] PCP - General Internal Medicine 11/04/18 Bean Solorio MD [address] [address] Hematology 04/21/19 documented as of this encounter
--- OUTSIDE RECORDS SUMMARY | 2024-12-06 10:27 | XMS_ITS | Data Portability ---
Author Organization [facility] [employer], Main Office Address [address] [place] [address] Assessment No assessment recorded. Plan of Treatment Reminders Order Date Submit Date Provider Last Modified By Organization Details Last Modified Time Details Appointments None recorded. Lab urinalysis , dipstick 2022 023 [email or web address] [facility] [address], [place], [address], 15:08:12 Referral None recorded. Procedures None recorded. [...] willa/ l) Small Not Available [facility] [address] [address], [place], [address], 02/02/2023 14:53:19 02/03/2002/02/2023 urina lysis , dipst ick Nitrite (reference rage: negative mg/dl) negati ve Not Available [facility] [address] [facility] [address], [place], [address], 02/02/2023 14:53:19 02/03/20 23 02/02/2023 urina lysis , dipst ick Urobilinogen (reference range: 0.2-1 mg/dl) 0.2 Not Available [facility] [address], [place], [address], 02/02/2023 14:53:19 02/03/2002/02/2023 urina lysis , dipst ick Protein (reference range: negative mg/dl) Small Not Available [facility] [address], [place], [address], 02/02/2023 14:53:19 02/03/20 23 02/02/2023 urina lysis , dipst ick pH (reference range: 5-7) 6.5 Not Available [facility] [address], [place], [address], 02/02/2023 14:53:19 02/03/20 23 02/02/2023 urina lysis , dipst ick Blood (reference range: negative Braydon/ l) Large Not Available [facility] [address], [place], [address], 02/02/2023 14:53:19 02/03/20 23 02/02/2023 urina lysis , dipst ick Specific Conway (reference range: 1.005-1.030) 1.020 Not Available [facility] [address] [place] [address] [address], [place], [address], 02/02/2023 14:53:19 02/03/2002/02/2023 urina lysis , dipst ick Ketone (reference range: negative mg/dl) Negati ve Not Available [facility] [address] [place] [address] [address], [place], [address], 02/02/2023 14:53:19 02/03/20 23 02/02/2023 urina lysis , dipst ick Bilirubin (reference range: negative mg/dl) Negati ve Not Available [facility] [address] [address], [place], [address], 02/02/2023 14:53:19 02/03/20 23 02/02/2023 urina lysis , dipst ick Glucose (reference range: negative mg/dl) Negati ve Not Available [facility] [address] [place] [address] [address] [address], [place], [address], 02/02/2023 14:53:19 02/03/20 23 02/02/2023 urina lysis , dipst ick Appearance Clear Not Available [facility] [address] [place] [address] [address] [facility], [place], [address], 02/02/2023 14:53:19 02/03/20 23 02/02/2023 urina lysis , dipst ick Color Yellow Not Available [facility] [address] [facility] [address] [address], [place], [address], 02/02/2023 14:53:19 02/16/20 23 02/15/2023 XR, kidne y + urete r + bladd er No observ ation record ed. [email or web address] [facility] [address] [place], [address], 02/16/2023 16:36:26 Result Notes None recorded. Problems Name Problem SNOMED Code Status Onset Date Resolution Date Notes Provider Name and Address Organization Details Recorded Time Kidney stone 74256625 Active 023 ARNOLD Stiles, [employer] 02/02/2023 14:53:20 Problem Notes None recorded. Procedures Surgical History Date Name Laterality Status Provider Name and Address Organization Details Recorded Time Ankle Surgery completed BRAD Perera [employer] 02/02/2023 14:53:57 procedure on elbow completed BRAD Perera [facility] 02/02/2023 14:54:10 Hysterectomy completed Vasiliy Mitchell [place] [facility] 02/02/2023 14:54:28 Imaging Results None recorded. Procedure Notes None recorded. Medical Equipment None [...] Available No t Available Vitals Date Recorded Heart rate Oxygen saturation Oxygen saturation in Arterial blood by Pulse oximetry Body mass index (BMI) Body weight Body temperature Systolic blood pressure Diastolic blood pressure Provider Name and Address Organization Details Last Updated DateTime 3 99 /min 98 % 98 % 23.7 kg/m2 43908.7 5 g 97.9 [degF] 129 mm[Hg] 77 mm[Hg] Calri Bae MA [employer] 14:52:58 Date Recorded Body height Provider Name an d Address Organization Details Last Updated DateTime 02/02/2023 162.56 cm BRAD Perera [employer] 02/02/2023 14:48:13 Social History Question Answer Notes LastModified by [email or web address] Details LastModified Time Tobacco Smoking Status Current Every Day Smoker BRAD Perera [facility] [employer] 02/02/2023 14:53:44 What Is Your Level Of Caffeine Consumption? Moderate [email or web address] Information not available 02/02/2023 What Was The Date Of Your Most Recent Tobacco Screening? 02/02/2023 [email or web address] Information not available 02/02/2023 How Much Tobacco Do You Smoke? 1 PPD [email or web address] Information not available 02/02/2023 Has Tobacco Cessation Counseling Been Provided? No [email or web address] Information not available 02/02/2023 Sex: Unknown Functional Status Question Answer Note LastModified by Organizat ion Details LastModified Time Do you use any illicit or recreational drugs? No [email or web address] Information not available 02/02/2023 Do you or have you ever used any other forms of tobacco or nicotine? No [email or web address] Information not available 02/02/2023 What is your level of alcohol consumption? None [email or web address] Information not available 02/02/2023 Mental Status None recorded. Family History Relationship Description Onset Age of this Age Resolved Age Notes LastModified by Organization Details LastModified Time Unspecified Relation Diabetes mellitus [email or web address] Not available 2022 14:52:09 Unspecified Relation Hypertensive disorder [email or web address] Not available 2022 14:52:17 Unspecified Relation Heart disease [email or web address] Not available 2022 14:52:28 Unspecified Relation Kidney stone [email or web address] Not available 14:52:58 Medical History Condition Response KIDNEY STONES Y EMPHYSEMA Y COPD Y STROKE/TIA Y KIDNEY DISEASE Y Gynecological HistoryNo gynecological history recorded. Obstetrics History GPAL:G 0 P 0 0 0 0 Past Encounters Encounter ID Performer Location Encounter Start Date Encounter Closed Date Diagnosis/Indication Diagnosis SNOMED-CT Code Diagnosis ICD10 Code Diagnosis Note [id number] Talha Stephens MD [facility] [address] [address] 02/02/2023 14:22:59 02/02/2023 15:07:11 Kidney stone 64611211 N20.0 8mm stone sp stent, went over [...] Laura Member ID Guarantor Name 02/02/2023 1 [facility] - DOS ON OR AFTER 20 (MEDICAID REPLACEMENT - HMO) Dinah Batres [id number] Dinah Batres Notes Date Note Type Note Provider Name and Address Organization Details Recorded Time 02/02/2023 text/html Kidney StoneReported bypatient.Notes:Pt was in [place] with infected left prox stone, pneumonia and renal failure. She had left stent and comes here for treatment. She has some stent irritation, no flank pain, fever or chills. Talha Stephens MD [address] [facility], [facility] [address], [place], [address], [place] - [facility] 02/02/2023 15:08:15 OBGyn Episode No OBEpisode recorded.
[2024-12-06 11:00] LABS: Collection Time Urine 24 HOURS
[2024-12-06 11:13] LABS: Creatinine Urine 71.9 mg/dL; Patient Weight 130 Lbs; Sodium Urine Random 105 meq/L; Total Protein Urine Random 21 mg/dL
[2024-12-06 11:22] LABS: Basophils Absolute Auto 0.05 K/mm3 (0.00-0.10); Basophils Percent Auto 0.6 % (0.0-1.0); Eosinophils Absolute Auto 0.34 K/mm3 (0.02-0.50); Eosinophils Percent Auto 4.3 % (1.0-6.0); Hematocrit 42.2 % (35.0-49.0); Hemoglobin 13.3 g/dL (12.0-15.0); Immature Granulocyte Absolute 0.01 K/mm3 (0.00-0.00); Immature Granulocyte Percent A 0.1 % (0.0-0.0); Lymphocytes Absolute Auto 2.29 K/mm3 (1.10-4.50); Lymphocytes Percent Auto 28.7 % (18.0-42.0); Mean Corpuscular HGB Conc 31.5 g/dL (32-36); Mean Corpuscular Hemoglobin 29.2 pg (27.0-31.0); Mean Corpuscular Volume 92.7 fL (78.0-102.0); Mean Platelet Volume 10.7 fl (9.2-11.8); Neutrophils Percent Auto 61.3 % (50.0-70.0); Platelet Count Result 308 K/mm3 (150-420); Red Blood Count 4.55 M/mm3 (4.20-5.40); Red Cell Distribution Width 13.2 % (11.6-14.4)
[2024-12-06 11:42] LABS: INR 1.1; Partial Thromboplastin Time 28.6 Sec (23.9-30.70); Prothrombin Time 11.9 Seconds (9.50-12.1)
[2024-12-06 11:46] LABS: Hemoglobin A1C 5.8 % (<5.7)
[2024-12-06 12:35] LABS: Add Urine Microscopic? YES; Appearance Urine Clear (Clear); Bilirubin Urine Negative (Negative); Blood Urine Negative (Negative); Color Urine Yellow (Yellow); Glucose Urine UA Negative (Negative); Ketones Urine Negative (Negative); Leukocyte Esterase Ur 1+ LEU/UL (Negative); Nitrate Urine Negative (Negative); Protein Urine Trace (Negative); Urobilinogen Urine 0.2 mg/dL (0.2-1.0)
[2024-12-06 12:55] LABS: HIV 1 P24 AG Negative (Negative); HIV 1/2 AB Negative (Negative)
[2024-12-06 12:56] LABS: RBC Urine None seen /hpf (0-2); Squamous Epithelial Cell Urine Few /hpf (Few); WBC Urine 0-3 /hpf (0-3)
[2024-12-06 12:57] LABS: Bacteria Urine Trace /hpf
[2024-12-06 13:33] LABS: Alanine Aminotransferase 36 U/L (6-35); Albumin Level 4.5 g/dL (3.5-5.1); Alkaline Phosphatase 122 U/L (38-126); Anion Gap 6 mmol/L (4-12); Aspartate Amino Transferase 36 U/L (14-36); Bilirubin,Total 0.4 mg/dL (0.2-1.3); Blood Urea Nitrogen 18 mg/dL (7-17); Calcium 9.3 mg/dL (8.4-10.2); Carbon Dioxide 24 mmol/L (22-30); Chloride 113 mmol/L (98-107); Cholesterol 146 mg/dL (0-200); Estimated Glomerular Filt Rate > 60; Glucose 100 mg/dL (65-110); HDL Direct 46 mg/dL; LDL Cholesterol Calculated 63 mg/dL (<130); Osmolality Calculated 297 mOsm/kg (285-295); Phosphorus 4.1 mg/dL (2.5-4.5); Potassium 4.3 mmol/L (3.4-5.0); Sodium 143 mmol/L (137-145); Total Protein 6.9 g/dL (6.3-8.2); Triglycerides 183 mg/dL (<150); Uric Acid 4.4 mg/dL (2.5-7.5)
[2024-12-06 13:34] LABS: Total Volume 24 Hour Urine 1300 ml; Urea Nitrogen Urine Random 622.1 mg/dl
[2024-12-06 13:49] LABS: Beta HCG Quantitative 3.82 mIU/ML
[2024-12-06 14:31] LABS: Sodium 24 Hour Urine 136 mmol/day (40-220); Total Protein Urine 24 Hr 273 mg/24hr (0-149); Total Volume 24 Hour Urine 1300 ml
[2024-12-06 14:32] LABS: Serum Creat 0.93
[2024-12-06 14:33] LABS: Creatinine Clearance Urine 74.4 ml/min (97-137)
[2024-12-06 14:35] LABS: Creatinine Urine 203.3 mg/dL; Total Protein Urine Random 28 mg/dL; Ur Ttl Prot Creatinine Ratio 0.14 mg/mg (0-0.20)
[2024-12-07 12:04] LABS: Hepatitis B Surface Antibody NON-REACTIVE (NON-REACTIVE)
[2024-12-07 13:59] LABS: Hepatitis B Surface Antigen NON-REACTIVE (NON-REACTIVE); Hepatitis C Virus Antibody NON-REACTIVE (NON-REACTIVE)
[2024-12-07 16:58] LABS: Microalbumin, Urine 2 mcg/min (<20); Microalbumin, Urine 3 mg/24 h (<30)
[2024-12-07 17:38] LABS: Hepatitis B Core Ab Total NON-REACTIVE (NON-REACTIVE)
[2024-12-07 19:10] LABS: Glucose 2 Hour 122 mg/dL
[2024-12-08 03:29] LABS: CMV IgG Antibody >10.00 U/mL; CMV IgM Antibody <30.00 AU/mL; EBV Virus Capsid Ag IgG Ab >750.00 U/mL; EBV Virus Capsid Ag IgM Ab <36.00 U/mL
[2024-12-08 09:33] LABS: RPR Screen NON-REACTIVE (NON-REACTIVE)
[2024-12-08 12:08] LABS: Cystatin C 1.52 mg/L (0.52-1.17); eGFR 42 (> OR = 60)
[2024-12-11 10:00] LABS: Glucose 1 Hour 122 mg/dL
[2024-12-11 10:00] LABS: Glucose Fasting 101 mg/dL
[2024-12-11 17:13] LABS: Toxoplasma IgG Antibody <7.20 IU/mL
== END 2024-12-06 09:27 | disposition home or self-care (01) ==
PROVIDERS: PCP Internal Medicine; Visit Provider Internal Medicine Nephrology
DX: Z01.818 Encounter for other preprocedural examination (principal); R82.90 Unspecified abnormal findings in urine
CPT/HCPCS: 36415; 80053; 80061; 81001; 81050; 82043; 82570; 82575; 82610; 82951; 83036; 84100; 84156; 84300; 84540; 84550; 84702; 85025; 85610; 85730; 86480; 86592; 86644; 86645; 86664; 86665; 86704; 86706; 86777; 86787; 86803; 86900; 86901; 87086; 87340; 87801; 87806